=== PATIENT | male | born 1945 | race Caucasian/White ===

== ENCOUNTER 2024-06-25 17:33 | Inpatient (IN) | payer OTHER, SELFPAY ==
[2024-06-21] VITALS (7 sets, daily range): BP systolic 104–159; BP diastolic 55–88; BMI 32.3
[2024-06-21 17:01] LABS: Urine Albumin Negative (Neg - Trace); Urine Bilirubin Negative (Negative); Urine Character Clear (Clear); Urine Color Yellow; Urine Glucose Negative (Negative); Urine Ketone 1+ (Negative); Urine Leukocyte Trace (Negative); Urine Nitrite Negative (Negative); Urine Occult Blood Negative (Negative); Urine Urobilinogen Negative (Neg - 1+)
[2024-06-21 17:04] LABS: % Basophils 0.5 % (0-2); % Immature Granulocytes 0.2 % (0-0.5); % Monocytes 10.1 % (1.7-9.3); % Neutrophils 69.2 % (42.2-75.2); Absolute Eosinophils 0.1 10^3/uL (0-0.7); Absolute Monocytes 0.6 10^3/uL (0.1-0.6); Absolute Neutrophils 3.9 10^3/uL (1.4-6.5); Hematocrit 41.5 % (39.0-52.0); Hemoglobin 13.8 g/dL (13.0-18.0); Mean Corp Hgb Conc. 33.3 g/dL (33.0-37.0); Mean Corpuscular Hgb 30.4 pg (27.0-31.0); Mean Corpuscular Volume 91.4 fL (80.0-94.0); Mean Platelet Volume 9.5 fL (7.4-10.4); Nucleated Red Blood Cells % 0 % (-); Platelet Count 188 10^3/uL (130-400); Red Blood Cell Count 4.54 10^6/uL (4.70-6.10); Red Cell Dist. Width 14.7 % (11.5-14.5); White Blood Cell Count 5.6 10^3/uL (4.8-10.8)
[2024-06-21 17:12] LABS: Urine Mucus Few; Urine Squamous Cell 0-2 /LPF (Few)
[2024-06-21 17:13] LABS: Urine Bacteria Few (Negative); Urine Red Blood Cell 0-2 /HPF (0-2); Urine White Cell 0-2 /HPF (0-5)
[2024-06-21 17:15] LABS: ALT (SGPT) < 10 U/L (0-50); AST (SGOT) 43 U/L (17-59); Alkaline Phosphatase 70 U/L (38-126); Blood Urea Nitrogen 26 mg/dl (9-20); Calcium 9.5 mg/dl (8.4-10.2); Carbon Dioxide 27 mmol/L (22-30); Chloride 108 mmol/L (98-107); Estimated Creatinine Clearance 61 ml/min; Glucose 116 mg/dl (70-99); Potassium 4.8 mmol/L (3.5-5.1); Sodium 143 mmol/L (135-145); Total Bilirubin 0.7 mg/dl (0.2-1.3); Total Protein 6.9 g/dl (6.3-8.2); eGFR > 60.00
--- NOTE | 2024-06-21 19:03 | ED.GENMED ---
History of Present Illness
General
Chief Complaint: Change in Mental Status
Source: patient
Exam Limitations: none
Time Seen by Provider: 06/21/24 17:57
Nursing documentation reviewed up to this point in time: agreed with
History of Present Illness
History of Present Illness:
Patient with history of dementia and CVA, presents [facility] from [facility] secondary to increased confusion, more than usual, per nursing staff at [facility]. Upon arrival, patient is alert and awake but confused. Patient offers no additional
information. Patient denies any pain when questioned.
Past History
Past History
ED Past Medical History: Arrthythmia (Atrial fibrillation), CVA, GERD, HTN, NIDDM (Diet-controlled), Psychiatric (Anxiety depression), Other (Parkinson dementia) and Other (Parkinson's disease, dementia, ambulatory dysfunction, degenerative joint
disease, cervical stenosis)
ED Past Surgical History: Cardiac (Pacemaker) and Other (hernia repair)
Social History
Tobacco: Non-smoker
Alcohol: None
Drug: None
Personal:
Living: assisted living ([facility])
Employment: Retired
Family History
Family History: Other (Reviewed and Noncontributory)
Review of Systems
Review of Systems
Allergies reviewed?: Yes
Unable to obtain full review of systems at this time due to: dementia
All Other Systems: Not applicable
Phy Exam
Physical Exam
Physical Exam:
Physical Exam
General: no apparent distress, not acutely ill. afebrile
Head: nc/at. eomi
Neck: supple. no meningeal signs.
Heart: s1/s2 regular rate and rhythm, no murmur. equal radial pulses.
Lungs: no acute respiratory distress. diminished breath sounds bilaterally
Abdomen: normal bowel sounds. not tender.
Neuro: alert and oriented x1. no focal neurological deficits
Skin: no rash
Psychiatric: well kept. interactive and cooperative, but confused
Extremities: LE nonpitting edema.
Course
Orders/Labs/Results
Orders:
Orders
06/21/24 Breakfast
Regular
At Your Request: Limited Participation
06/21/24 16:47
Complete Blood Count/With Diff Urgent
Comprehensive Metabolic Panel Urgent
Urinalysis Reflex To Culture Urgent
Date Specimen was Collected: 06/21/24
Time Specimen was Collected: 16:46
Urine Microscopic Reflex Cult Urgent
Urine Culture Urgent
YAS Source: U
Specimen Description:
Date Specimen was Collected: 06/21/24
Time Specimen was Collected: 16:46
Comment: ADD ON
06/21/24 18:05
Add On - Microbiology Urgent
Tests Added?: urine culture
06/21/24 18:30
CT Abd/pel Without Iv Or Oral Urgent
Comment:
Reason For Exam: left flank pain
CR Chest - 2 Views Urgent
Comment:
Reason For Exam: cough
06/21/24 19:16
COVID-19 Antigen Urgent
Source: Nasal Swab
06/21/24 22:00
0.9% Sodium Chloride 500 ml [Nss] 500 ml IV 100 mls/hr
06/21/24 22:[address] [CT Head W/o Iv Contrast] Urgent
Comment:
Reason For Exam: change in mental status
06/21/24 22:11
Admit/Transfer Patient As Directed
Co-Sign Provider:
Level of Care: Observation services
Assign to:: Medical/Surgical
Physician / Group: Lam[facility]
Diagnosis: Change in Mental Status
PRN Pain Medication Management As Directed
May give lesser potent ordered pain med per pt: Yes
preference::
Protocol:: Medication orders for pain may be administered in a
manner that supports deferring to patient preference
when the pt is:
- Requesting an ordered lesser potent pain medication.
Least to most potent pain medications are defined
as: acetaminophen < NSAID < tramadol < opioids
(morphine, oxycodone, hydromorphone).
- Requesting a lesser dose of the same medication IF
ORDERED.
- Requesting a less intrusive route of administration
if both routes are prescribed by the provider (PO <
IV).
06/21/24 22:15
Code Status As Directed
Resuscitation Status: Full Code
06/21/24 22:56
Acetaminophen [Tylenol] 650 mg PO Q4HPRN PRN
06/21/24 22:56
Vascular Surgery Consult Routine
Consulting Provider: Mary Jo Perez
Was physician already notified: Yes
Activity As Directed
Activity Level: Out of Bed-Early Mobility
Bladder Scan As Directed
Follow Bladder Retention/Intermittent Cath Algorithm?: Yes
PRN if no void in __ hours: 6
Frequency: Per Retention Algorithm
If Bladder Scan Result >: 400
then:: Straight cath
I&O [Intake/ Output] As Directed
Frequency: q12h
Straight Cath As Directed
Frequency: Per Retention Algorithm
Additional Instructions: straight cath as needed per acute urinary retention algorithm for 24 hrs
Additional Instructions: for bladder scan greater than 400 mL
Vital Signs As Directed
Frequency: Per unit guidelines
Ot Eval And Treat Routine
Pt Eval And Treat Routine
Activity Level: Out of Bed-Early Mobility
06/22/24 06:44
Basic Metabolic Panel IN AM
Complete Blood Count/No Diff IN AM
Prothrombin Time IN AM
RPR [Syphilis/T. pallidum Ab Reflex] IN AM
TSH Reflex To Free T4 IN AM
Vitamin B12 IN AM
06/22/24 08:00
Carbidopa/Levodopa [Sinemet 25-100] 1 tablet PO TID@0800,1400,1800
Clonazepam [Klonopin] 0.5 mg PO TID@0800,1400,1800
Cyanocobalamin [Vitamin B-12] 1,000 mcg PO DAILY
Pantoprazole [Protonix] 20 mg PO DAILY
Polyethylene Glycol Powder [Miralax] 17 grams PO DAILY
Rotigotine [Neupro] 4 mg TRANSDERM DAILY
epxulmonf-sryxfidh-ycdtucwkik 1 tablet PO 5/D
06/22/24 18:00
Carvedilol [Coreg] 3.125 mg PO QPM
Citalopram [Celexa] 20 mg PO QPM
Donepezil HCl [Aricept] 10 mg PO QPM
Sennosides [Senokot] 8.6 mg PO QPM
Solifenacin Succinate [Vesicare] 5 mg PO QPM
06/22/24 20:00
Warfarin [Coumadin] 5 mg PO SuTuThSa@1999
06/22/24 22:00
Melatonin 9 mg PO HS
06/23/24 06:00
Prothrombin Time IN AM
06/23/24 20:00
Warfarin [Coumadin] 4 mg PO MoWeFr@1999
06/24/24 06:00
Prothrombin Time IN AM
06/25/24 06:00
Prothrombin Time IN AM
06/26/24 06:00
Prothrombin Time IN AM
Abnormal Lab Results
06/21/24
16:47
RBC 4.54 L 10^6/uL
(4.70-6.10)
RDW 14.7 H %
(11.5-14.5)
Absolute Lymphs (auto) 1.0 L 10^3/uL
(1.2-3.4)
Lymphocytes % 18.0 L %
(20.5-51.1)
Monocytes % 10.1 H %
(1.7-9.3)
Chloride 108 H mmol/L
(98-107)
BUN 26 H mg/dl
(9-20)
Glucose 116 H mg/dl
(70-99)
Urine Ketones 1+ A
(Negative)
Leukocyte Esterase Rfl Trace A
(Negative)
Urine Bacteria (Reflex) Few A
(Negative)
06/21/24 16:47
06/21/24 16:47
Vital Signs
Initial and Last Documented VS:
Initial Vital Signs
Temp Pulse Resp BP Pulse Ox
98.1 F 85 21 118/69 91
06/21/24 16:41 06/21/24 16:41 06/21/24 16:41 06/21/24 16:41 06/21/24 16:41
Last Documented Vital Signs
Temp Pulse Resp BP Pulse Ox
98.2 F 61 18 145/91 95
06/22/24 00:15 06/22/24 06:24 06/22/24 06:24 06/22/24 06:24 06/22/24 06:24
MDM/Problems Addressed
MDM/Problems Addressed:
Patient remains alert, awake, but pleasantly confused. Otherwise, patient is afebrile, helically stable, without any acute distress. Patient presenting symptoms likely secondary to mild dehydration, without any evidence of focal infection.
However, CT abdomen pelvis performed due to mild tenderness on exam, which reveals abdominal aortic aneurysm measuring 6.2 cm.
Discussed with patient's son, who is power of assistant county attorney. Patient is full code and does not have any history of AAA. As such, patient will be admitted for further events or treatment, including IV fluid administration along with vascular
consultation as inpatient.
*Critical Care Note
Total Time (30-74mins, 75-104mins- exclusive of procedures): Not Applicable
ED Attending Note
-
Portions of this chart may have been created with voice recognition software.� Occasional wrong word or��sound alike� substitutions may have occurred due to the inherent limitations of voice recognition software.
Discharge Plan
Departure
Patient Disposition: Admit
Date of Disposition: 06/21/24
Time of Disposition: 21:19
Admit to: Med/Surg
Presentation/result/management discussed w/ accepting MD/DO: Hospitalist
Discharge Problem:
Altered mental status
Interventions
Interventions:
*Risk Screen - Suicide Last Done: 06/21/24 16:44
*General Assessment Last Done: 06/21/24 16:44
*Neglect/Abuse Screening Last Done: 06/21/24 16:44
ED- Fall Risk Assessment Last Done: 06/22/24 00:38
*ED COVID-19 Vaccine History Last Done: 06/21/24 16:44
ED- Pulmonary Assessment Last Done: 06/22/24 00:38
ED- Neurological Assessment Last Done: 06/22/24 00:38
ED- Cardiac Assessment Last Done: 06/21/24 16:45
ED Swallowing Screen Last Done: 06/22/24 01:15
[2024-06-21 19:31] LABS: COVID-19 Antigen Negative (Negative)
[2024-06-21] MEDS: NSS 500 IV (21:27)
--- NOTE | 2024-06-21 21:47 | W.PN.UPDATE ---
Update Note
Progress Note Update
Patient seen in conjunction with [facility] ADMINISTRATOR. I agree with the findings on history and physical. I concur with the assessment and plan unless stated otherwise.
Briefly, this is a 78-year-old male with past medical history of Parkinson disease, atrial fibrillation on anticoagulation, diabetes, hypertension, who presents to the emergency department with worsening confusion and weakness fatigue from home. He
has dementia for which he is on medications. Patient lives at [facility] and says has been living there for 10 years. He has no focal neurological deficits or complaints. Denies dysuria, incontinence hematuria. Denies cough, wheezing or SOB.
Denies headache, nausea, vomiting. Denies fevers or chills. Denies any recent falls. Patient does not initiate conversation no able to provide details on his medical condition. Clearly has worsening dementia possibly due to parkinson and he was
recently started on Namenda on 05/31. Otherwise no medicationchanges. He is anticoagulated appropriately
In the ED he was afebrile, blood pressure was stable at 118/75 with a pulse of 70 and respiratory rate of 12. Chest x-ray was clear. He had a CT of the abdomen pelvis which showed an incidental finding of an increase in his infrarenal AAA to 6.2
from 3.6 approximately 7 years ago. Chemistries showed normal-appearing creatinine and electrolytes. LFTs were normal. CBC was unremarkable. UA was clear. COVID-19 was negative.
A&P
AMS - subacute, no focal neurological defitics, no signs of acute infection.
- admit to med/surg
- hold namenda
- check ct head tsh, b12, rpr
- orthostatic vital signs
- patient should have outpatient neurology follow up
AAA- Known AAA, previously 3.6 in 2017. Now 6.2
- meets threshold for tx, Vascular consultation. D/w POA by ED
DM II
- diet controlled
AFIB
- continue warfarin, check inr
- carvedilol
HTN
- continue carvedilol
DVT PPX - on coumadin
Code status - Full
--- NOTE | 2024-06-21 22:11 | HPS.HSE ---
Family Physician
-
Family Physician: Prashanth Rodríguez
Chief Complaint
-
Confusion
History of Present Illness
Patient is a 78 y/o male past medical history of a-fib on Coumadin, Parkinson's disease, dementia, anxiety/depression who presents with confusion. Review of records indicate patient was noted by staff at the nursing facility to be more confused
than his baseline. Upon my evaluation he has no complaints. He is oriented to person, place and time; but is unable to tell me why he was sent to the hospital this evening.
Medical History
Past Medical History
Past Medical History: Reports Other
Additional Past Medical History:
Paroxysmal Atrial Fibrillation
Essential Hypertension
Hyperlipidemia
Parkinson's Disease
Dementia, likely secondary to Parkinson's Disease
Anxiety/Depression
GERD
Chronic Constipation
Past Surgical History: Reports Other
Additional Past Surgical History:
Permanent Pacemenaker
Hernia Repair
TURP
Social History
Tobacco: Non-smoker
Alcohol: None
Living: Other ([facility])
Family History
Family History: Not pertinent
Allergies / Home Medications
Allergies reflects when Allergies were last updated in [employer].
Home Medications with original date entered in [employer]
Allergy/Medication List:
Allergies
Allergy/AdvReac Type Severity Reaction Status Date / Time
oxycodone HCl [From Percocet] Allergy vomitting Verified 06/06/23 01:18
Home Medications
citalopram 20 mg tablet 20 mg PO QPM 07/02/14
cyanocobalamin (vitamin B-12) 500 mcg tablet (Vitamin B-12) 1,000 mcg PO DAILY 07/02/14
acetaminophen 325 mg tablet 650 mg PO BIDPRN PRN mild pain ##0 10/16/16
carbidopa 37.5 mg-levodopa 150 mg-entacapone 200 mg tablet 1 tab PO 5/D ##0 02/24/17
carvedilol 3.125 mg tablet 3.125 mg PO QPM 10/16/16
clonazepam 0.5 mg tablet 0.5 mg PO TID@0800,1400,1800 ##0 10/16/16
pantoprazole 20 mg tablet,delayed release 20 mg PO DAILY ##0 10/16/16
polyethylene glycol 3350 17 gram oral powder packet 17 g PO DAILY constipation 10/16/16
rotigotine 6 mg/24 hour transdermal 24 hour patch (Neupro) 6 mg transdermal DAILY ##0 10/16/16
sennosides 8.6 mg tablet (senna) 8.6 mg PO QPM ##0 10/16/16
solifenacin 5 mg tablet 5 mg PO QPM 10/16/16
warfarin 5 mg tablet (Jantoven) 5 mg PO .4X WEEKLY@199910/16/16
atorvastatin 10 mg tablet (Lipitor) 10 mg PO QPM 10/29/19
melatonin 3 mg capsule 9 mg PO HS 10/29/19
bisacodyl 10 mg rectal suppository (Dulcolax (bisacodyl)) 10 mg UT DAILYPRN PRN constipation 06/06/23
carbidopa 25 mg-levodopa 100 mg tablet (Sinemet) 1 tab PO TID@0800,1400,1800 06/06/23
donepezil 10 mg tablet (Aricept) 10 mg PO QPM 06/06/23
acetaminophen 325 mg tablet 650 mg PO BID 06/21/24
cranberry 500 mg capsule 500 mg PO DAILY 06/21/24
dextran 70-hypromellose 0.1 %-0.3 % eye drops (Artificial Tears (dextran 70-hypromellose)) 1 drp BOTH EYES BID 06/21/24
memantine 10 mg tablet 10 mg PO BID 06/21/24
therapeutic multivitamin 1 tab PO DAILY 06/21/24
warfarin 4 mg tablet 4 mg PO .3X WEEKLY@199906/21/24
Review of Systems
-
Unable to obtain full review of systems at this time due to: Dementia
Physical Exam
Vital Signs
Vital Signs
Temp Pulse Resp BP Pulse Ox
98.1 F 60 15 154/82 96
06/21/24 16:41 06/21/24 22:00 06/21/24 22:00 06/21/24 22:00 06/21/24 21:45
Physical Exam
General: Comfortable and Conversant (Slow to answer questions)
HEENT: Anicteric and Moist mucous membranes
Respiratory: Clear and Non Labored Respirations
Cardiac: S1/S2 and Regular Rhythm
GI: Soft and Non Tender
Rectal: Deferred by Provider
Genito-urinary: Clear Urine
Musculoskeletal: No Clubbing, No Cyanosis and No Edema
Skin: Warm and Dry
Neuro: Awake, Alert, Oriented (Patient correctly states he is at [facility], that it is May 2024, and correctly named the current president. He states Election Day is next week and gave listed the presidential candidates) and
Nonfocal/grossly intact
Psych: Calm and Other (Affect is very flat)
Laboratory Results
-
06/21/24 16:47
06/21/24 16:47
Laboratory Results
Total Bilirubin 0.7 mg/dl (0.2-1.3) 06/21/24 16:47
AST 43 U/L (17-59) 06/21/24 16:47
ALT < 10 U/L (0-50) 06/21/24 16:47
Alkaline Phosphatase 70 U/L (38-126) 06/21/24 16:47
Data Reviewed
-
CT Scan: Report Reviewed by me
Lab Data: Labs Reviewed by me
Impression/Plan
-
Change in Mental Status, unknown baseline
-Check Head CT
-Check TSH
-Review of records suggest Namenda was started recently on May 31 - Will hold Namenda as possible cause
Infrarenal Abdominal Aortic Aneurysm
-Size has increased to 6.2cm from 3.6cm in 2014
-Consult Vascular Surgery
Paroxysmal Atrial Fibrillation
-Continue Coumadin - Check INR
-Continue Coreg for rate control
Essential Hypertension
-Continue Coreg
Hyperlipidemia
-Continue Lipitor
Parkinson's Disease
-Continue carbidopa-levodopa, entacapone and rotigotine
Dementia, likely secondary to Parkinson's Disease
-Continue Aricept
-Hold Namenda as above
Anxiety/Depression
-Continue citalopram and clonazepam
DVT proph: Coumadin
Code Status: Full Code
[2024-06-22 00:15] VITALS: BP 157/80
[2024-06-22 06:24] VITALS: BP 145/91
[2024-06-22 06:56] LABS: Hematocrit 40.6 % (39.0-52.0); Hemoglobin 13.6 g/dL (13.0-18.0); Mean Corp Hgb Conc. 33.5 g/dL (33.0-37.0); Mean Corpuscular Hgb 29.8 pg (27.0-31.0); Mean Platelet Volume 9.4 fL (7.4-10.4); Platelet Count 176 10^3/uL (130-400); Red Blood Cell Count 4.56 10^6/uL (4.70-6.10); Red Cell Dist. Width 14.9 % (11.5-14.5); White Blood Cell Count 4.3 10^3/uL (4.8-10.8)
[2024-06-22 07:05] LABS: INR 1.45; PT 17.8 Sec (11.4-14.6)
[2024-06-22 07:25] LABS: Blood Urea Nitrogen 20 mg/dl (9-20); Calcium 9.1 mg/dl (8.4-10.2); Carbon Dioxide 28 mmol/L (22-30); Chloride 108 mmol/L (98-107); Estimated Creatinine Clearance 81 ml/min; Glucose 90 mg/dl (70-99); Potassium 4.2 mmol/L (3.5-5.1); Sodium 143 mmol/L (135-145); eGFR > 60.00
--- NOTE | 2024-06-22 07:48 | W.PN.HOSP.TC ---
Today's Communication/Plan
-
Hold Namenda
Continue Coumadin and monitor INR
PT/OT
Assessment / Plan
Assessment / Plan
Impression: 78-year-old male with past medical history of Parkinson disease, atrial fibrillation on anticoagulation, diabetes, hypertension, who presents to the emergency department with worsening confusion and weakness fatigue from home. He has
dementia for which he is on medications. Patient lives at [facility] and says has been living there for 10 years. He has no focal neurological deficits or complaints. Denies dysuria, incontinence hematuria. Denies cough, wheezing or SOB.
Denies headache, nausea, vomiting. Denies fevers or chills. Denies any recent falls. Patient does not initiate conversation no able to provide details on his medical condition. Clearly has worsening dementia possibly due to parkinson and he was
recently started on Namenda on 05/31. Otherwise no medicationchanges. He is anticoagulated appropriately
Assessment/plan:
#AMS
-Baseline unclear, CT head with no acute abnormalities, CXR unremarkable, no FND, no signs of acute infection.
-Hold Namenda.
-B12, TSH unremarkable.
-RPR pending
-PT/OT
#Infrarenal AAA
-Previous size 3.6 cm in 2013, currently 6.2 cm.
-Contact POA for GOC unsuccessful, will retry.
-Consider vascular surgery consult.
#Type 2 diabetes mellitus
-Diet controlled
#Paroxysmal A-fib
-On warfarin, INR not therapeutic.
-Continue carvedilol for rate control.
-Monitor INR.
#Essential hypertension
-Continue carvedilol.
#Hyperlipidemia
-Continue atorvastatin.
#Parkinson disease with dementia
-Continue carbidopa-levodopa, entacapone and rotigotine
-Continue donepezil.
-Hold Namenda.
#Anxiety/Depression
-Continue citalopram and clonazepam
DVT PPx: Coumadin
CODE STATUS: Full code
Anticipated Discharge: 24 - 48 hours
Subjective/Interval History
-
Date of Service: June 22, 2024
Patient was seen and examined in the room eating breakfast. Patient not responding to questions, unclear what his baseline is.
Objective Data
-
Labs:
Laboratory Results
06/22/24
06:44
WBC 4.3 L
Hgb 13.6
Hct 40.6
Plt Count 176
PT 17.8 H
INR 1.45
Sodium 143
Potassium 4.2
Chloride 108 H
Carbon Dioxide 28
BUN 20
Creatinine 0.9
Glucose 90
Calcium 9.1
Vital Signs:
Vital Signs
Temp Pulse Resp BP Pulse Ox
98.2 F 61 18 145/91 95
06/22/24 00:15 06/22/24 06:24 06/22/24 06:24 06/22/24 06:24 06/22/24 06:24
Review of Systems
-
Unable to obtain full review of systems at this time due to: Dementia and Patient Non-verbal
Physical Exam
-
General: No Apparent Distress and Comfortable
Respiratory: Clear to Auscultation; Negative Rales or Crackles
Cardiac: Regular Rhythm and S1/S2
GI: Soft, Nontender and Distended
Skin: Warm
Neuro: Awake and Alert
Psych: Calm
Data Reviewed
-
Diagnostic Radiology: Image personally visualized and interpreted, Report Reviewed by me and Discussed with Physician
CT Scan: Image personally visualized and interpreted, Report Reviewed by me and Discussed with Physician
Labs: Labs Reviewed by me and Discussed with Physician
Old Records: Reviewed
[2024-06-22 07:56] LABS: TSH Reflex To Free T4 1.65 uIU/ml (0.47-4.68)
[2024-06-22 08:15] LABS: Vitamin B12 923 pg/ml (239-931)
[2024-06-22] MEDS: VITAMIN B-12 1000 MCG PO (08:19)
[2024-06-22] MEDS: NEUPRO 4 MG TRANSDERM (08:19)
[2024-06-22] MEDS: NEUPRO 2 MG TRANSDERM (08:19)
[2024-06-22] MEDS: MIRALAX 17 GRAMS PO (08:19)
[2024-06-22] MEDS: SINEMET 25-100 1 TABLET PO ×3 (08:20→18:28)
[2024-06-22] MEDS: PROTONIX 20 MG PO (08:20)
[2024-06-22] MEDS: KLONOPIN 0.5 MG PO (08:20)
[2024-06-22 09:33] VITALS: BP 143/91
--- NOTE | 2024-06-22 12:32 | W.PN.UPDATE ---
Addendum entered and electronically signed by Otto Valenzuela MD 06/22/24 13:52:
I did speak extensively with patient's son Parveen over the phone. Discussed extensively abdominal aortic aneurysms, natural history, rupture risks, indications for repair. Discussed specifics of his father's aneurysm. Discussed symptomatic
versus asymptomatic aneurysms. Discussed modalities of repair. Discussed recoveries and risks associated with both modalities. Discussed based on his anatomy he be a candidate for endovascular pair. Discussed rupture risk if no intervention is
undertaken. They will consider all know what they decide. They will call me in the office tomorrow.
Original Note:
Update Note
Progress Note Update
Seen and examined with DONA Calero. Full consultation to follow. Briefly he is a 78-year-old male with history of Parkinson's disease, dementia. Presented with increased confusion/mental status changes. Underwent CT scan of the abdomen.
Demonstrated incidental finding of abdominal aortic aneurysm. 6.2 cm infrarenal abdominal aortic aneurysm. Only prior scan we have in our system was from 2013 that demonstrated 3.5 cm measurement in that vicinity. 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 He points more to the left side.
On exam/he is awake. In no acute distress. Breathing is unlabored. Abdomen is soft, nondistended, mildly tender diffusely but mainly on the left side of the abdomen. When I palpate to deep palpation directly overlying the aorta it does not
really elicit any increased tenderness or discomfort. Lower extremity with 2+ femoral and popliteal pulses. Feet are both warm and pink. No rubor, no ulcerations.
Plan/I reviewed his CT scan. He does have an infrarenal 6.2 cm (AP dimension, approximately 5.4 cm transverse) abdominal aortic aneurysm. I tried calling his POA his son Parveen. Went to voicemail. I called secondary contact who is Jevon
Elisa. I spoke to him at length. Discussed the findings. Discussed general information regarding abdominal aortic aneurysms, discussed indications for repair. Discussed rupture risk, based on size of his aneurysm quoted him about a 10 %/year
risk of rupture with attendant mortality of upwards of 80 to 90%. Discussed generally recommendations for repair based on the size for rupture prevention. I discussed that if no other abdominal pain source is found (Mr. Pérez notes that patient
has recurrent UTIs as well), that could consider treatment of the aneurysm more expeditiously as it could indicate symptomatic aneurysm though he is not tender as much on exam directly overlying the aneurysm. Alternatively could perform elective
aneurysm repair. Mr. Pérez notes that he will speak to the patient's son. I will call them back in a little bit to see where they stand on the aorta.
--- NOTE | 2024-06-22 13:31 | CON.VAS ---
Consultation
Consultation Request
Performing Provider: Nicolas
Reason for Consultation: AAA
Medical History
-
Chief Complaint: Confusion
History of Present Illness:
78-year-old male with history of Parkinson's disease, dementia. Presented with increased confusion/mental status changes. Underwent CT scan of the abdomen. Demonstrated incidental finding of abdominal aortic aneurysm. 6.2 cm infrarenal abdominal
aortic aneurysm. Only prior scan we have in our system was from 2013 that demonstrated 3.5 cm measurement in that vicinity. 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 He points more to the left
side.
On exam/he is awake. In no acute distress. Breathing is unlabored. Abdomen is soft, nondistended, mildly tender diffusely but mainly on the left side of the abdomen. When I palpate to deep palpation directly overlying the aorta it does not
really elicit any increased tenderness or discomfort. Lower extremity with 2+ femoral and popliteal pulses. Feet are both warm and pink. No rubor, no ulcerations.
Past Medical History
Past Medical History: Other (A-fib, hypertension, hyperlipidemia, Parkinson disease, dementia, anxiety/depression, GERD, chronic constipation, AAA)
Past Surgical History: Other (Pacemaker, hernia repair, TURP)
Social History
Tobacco: Non-Smoker
Alcohol: None
Living: [facility]
Family History
Family History: Reviewed & Not Pertinent
Allergies / Home Medications
Allergy/AdvReac Type Severity Reaction Status Date / Time
oxycodone HCl [From Percocet] Allergy vomitting Verified 06/06/23 01:18
�Medication �Instructions �Recorded �Confirmed �Type
citalopram 20 mg tablet 20 mg PO QPM 07/02/14 06/21/24 History
cyanocobalamin (vitamin B-12) 500 1,000 mcg PO DAILY 07/02/14 06/21/24 History
mcg tablet (Vitamin B-12)
acetaminophen 325 mg tablet 650 mg PO BIDPRN PRN mild pain ##0 10/16/16 06/21/24 History
carbidopa 37.5 mg-levodopa 150 1 tab PO 5/D ##0 10/16/16 06/21/24 History
mg-entacapone 200 mg tablet
carvedilol 3.125 mg tablet 3.125 mg PO QPM 10/16/16 06/21/24 History
clonazepam 0.5 mg tablet 0.5 mg PO TID@0800,1400,1800 ##0 10/16/16 06/21/24 History
pantoprazole 20 mg tablet,delayed 20 mg PO DAILY ##0 10/16/16 06/21/24 History
release
polyethylene glycol 3350 17 gram 17 g PO DAILY constipation 10/16/16 06/21/24 History
oral powder packet
rotigotine 6 mg/24 hour 6 mg transdermal DAILY ##0 10/16/16 06/21/24 History
transdermal 24 hour patch (Neupro)
sennosides 8.6 mg tablet (senna) 8.6 mg PO QPM ##0 10/16/16 06/21/24 History
solifenacin 5 mg tablet 5 mg PO QPM 10/16/16 06/21/24 History
warfarin 5 mg tablet (Jantoven) 5 mg PO .4X WEEKLY@199910/16/16 06/21/24 History
atorvastatin 10 mg tablet (Lipitor) 10 mg PO QPM 10/29/19 06/21/24 History
melatonin 3 mg capsule 9 mg PO HS 10/29/19 06/21/24 History
bisacodyl 10 mg rectal suppository 10 mg SD DAILYPRN PRN constipation 06/06/23 06/21/24 History
(Dulcolax (bisacodyl))
carbidopa 25 mg-levodopa 100 mg 1 tab PO TID@0800,1400,1800 06/06/23 06/21/24 History
tablet (Sinemet)
donepezil 10 mg tablet (Aricept) 10 mg PO QPM 06/06/23 06/21/24 History
acetaminophen 325 mg tablet 650 mg PO BID 06/21/24 06/21/24 History
cranberry 500 mg capsule 500 mg PO DAILY 06/21/24 06/21/24 History
dextran 70-hypromellose 0.1 %-0.3 1 drp BOTH EYES BID 06/21/24 06/21/24 History
% eye drops (Artificial Tears
(dextran 70-hypromellose))
memantine 10 mg tablet 10 mg PO BID 06/21/24 06/21/24 History
therapeutic multivitamin 1 tab PO DAILY 06/21/24 06/21/24 History
warfarin 4 mg tablet 4 mg PO .3X WEEKLY@199906/21/24 06/21/24 History
Review of Systems
-
History Source: Patient
All other systems: Negative unless noted
Constitutional: Reports No Symptoms
EENT: Reports No Symptoms
Respiratory: Reports No Symptoms
Cardiac: Reports No Symptoms
Vascular: Denies Leg Pain / Claudication
Abdomen/GI: Reports Abdominal Pain
Physical Exam
Vital Signs
Temp Pulse Resp BP Pulse Ox
98.2 F 61 18 145/91 95
06/22/24 00:15 06/22/24 06:24 06/22/24 06:24 06/22/24 06:24 06/22/24 06:24
Lab Results
06/22/24 06:44
06/22/24 06:44
Physical Exam
General: No Apparent Distress
HEENT: Normocephalic and Atraumatic
Respiratory: Non Labored Respirations
Cardiac: Negative JVD
GI: Soft, Non Distended and Other (Abdomen is soft, nondistended, mildly tender diffusely but mainly on the left side of the abdomen. When I palpate to deep palpation directly overlying the aorta it does not really elicit any increased tenderness
or discomfort)
Musculoskeletal: No Clubbing and No Cyanosis
Skin: Warm
Neuro: Awake and Alert
Psych: Calm
Pulses: Bilateral Femoral: +2 and Bilateral Popliteal: +2
Assessment / Plan
-
Plan/I reviewed his CT scan. He does have an infrarenal 6.2 cm (AP dimension, approximately 5.4 cm transverse) abdominal aortic aneurysm. I tried calling his POA his son Parveen. Went to voicemail. I called secondary contact who is Jevon "Chanel"Elisa. I spoke to him at length. Discussed the findings. Discussed general information regarding abdominal aortic aneurysms, discussed indications for repair. Discussed rupture risk, based on size of his aneurysm quoted him about a 10 %/year
risk of rupture with attendant mortality of upwards of 80 to 90%. Discussed generally recommendations for repair based on the size for rupture prevention. I discussed that if no other abdominal pain source is found (Mr. Pérez notes that patient
has recurrent UTIs as well), that could consider treatment of the aneurysm more expeditiously as it could indicate symptomatic aneurysm though he is not tender as much on exam directly overlying the aneurysm. Alternatively could perform elective
aneurysm repair. Mr. Pérez notes that he will speak to the patient's son. I will call them back in a little bit to see where they stand on the aorta.
Data Reviewed
-
CT Scan: Discussed with Patient
[2024-06-22 16:03] VITALS: BP 159/60
--- NOTE | 2024-06-22 16:25 | PTCARENOTE ---
Pt received from ED. VSS. AAOx3 but forgetful. Bed alarm placed. Call carrillo within reach. Pt states no needs at this time.
[2024-06-22] MEDS: COREG 3.125 MG PO (18:27)
[2024-06-22] MEDS: SENOKOT 8.6 MG PO (18:27)
[2024-06-22] MEDS: ARICEPT 10 MG PO (18:27)
[2024-06-22] MEDS: CELEXA 20 MG PO (18:27)
[2024-06-22] MEDS: VESICARE 5 MG PO (18:29)
[2024-06-22] MEDS: MELATONIN 9 MG PO (21:42)
[2024-06-22] MEDS: COUMADIN 5 MG PO (21:42)
[2024-06-22 23:08] VITALS: BP 118/65
[2024-06-23 06:00] VITALS: BMI 31.6
--- NOTE | 2024-06-23 06:14 | W.PN.HOSP.TC ---
Today's Communication/Plan
-
GOC discussion per vascular
Monitor hemodynamics closely
Assessment / Plan
Assessment / Plan
Impression: 78-year-old male with past medical history of Parkinson disease, atrial fibrillation on anticoagulation, diabetes, hypertension, who presents to the emergency department with worsening confusion and weakness fatigue from home. He has
dementia for which he is on medications. Patient lives at [facility] and says has been living there for 10 years. He has no focal neurological deficits or complaints. Denies dysuria, incontinence hematuria. Denies cough, wheezing or SOB.
Denies headache, nausea, vomiting. Denies fevers or chills. Denies any recent falls. Patient does not initiate conversation no able to provide details on his medical condition. Clearly has worsening dementia possibly due to parkinson and he was
recently started on Namenda on 05/31. Otherwise no medicationchanges. He is anticoagulated appropriately
Assessment/plan:
# Presentation with AMS
-Improved today more, alert and oriented today.
-Suspected etiology include polypharmacy vs progressive dementia.
-Baseline unclear, CT head with no acute abnormalities, CXR unremarkable, no FND, no signs of acute infection.
-Hold rotigotine, Namenda.
-B12, TSH unremarkable.
-RPR pending
-PT/OT
#Lower abdominal discomfort
-Left> Right, with left-sided guarding on palpation.
-Reports related to his nightmares and improves with defecation.
-Most likely from his AAA.
-Assessment for EVAR ongoing.
#Infrarenal AAA
-Previous size 3.6 cm in 2013, currently 6.2 cm.
-GOC with son who is his POA ongoing per vascular.
-Vascular surgery is following.
#Type 2 diabetes mellitus
-Diet controlled
#Paroxysmal A-fib
-On warfarin, INR not therapeutic.
-Continue carvedilol for rate control.
-Monitor INR.
#Essential hypertension
-Continue carvedilol.
#Hyperlipidemia
-Continue atorvastatin.
#Parkinson disease with dementia
-Continue carbidopa-levodopa, entacapone and rotigotine
-Continue donepezil.
-Hold Namenda.
#Anxiety/Depression
-Continue citalopram and clonazepam
DVT PPx: Coumadin
CODE STATUS: Full code
Anticipated Discharge: > 48 hours
Subjective/Interval History
-
Date of Service: June 23, 2024
Patient was seen and examined by me today. He was lying comfortably in his bed in no obvious distress. He is more awake today and communicative telling the story about his nightmares and hallucinations. He reports lower abdominal discomfort that
improves with defecation. He does not have any chest pain today, shortness of breath fever or chills. He also denies palpitations, headaches.
Objective Data
-
Labs:
Laboratory Results
06/23/24
06:00
PT Pending
INR Pending
Vital Signs:
Vital Signs
Temp Pulse Resp BP Pulse Ox
97.9 F 61 16 118/65 95
06/22/24 23:08 06/22/24 23:08 06/22/24 23:08 06/22/24 23:08 06/22/24 23:08
Review of Systems
-
History Source: Patient
All other systems: Not reviewed unless documented
Respiratory: Reports No Symptoms; Denies Trouble Breathing
Cardiac: Reports No Symptoms; Denies Chest Pain
Abdomen/GI: Reports Other (Mild abdominal discomfort improved with defecation)
Physical Exam
-
General: No Apparent Distress and Comfortable
Respiratory: Clear to Auscultation; Negative Rales or Crackles
Cardiac: Regular Rhythm and S1/S2
GI: Soft, Nontender and Distended
Skin: Warm
Neuro: Awake and Alert
Psych: Calm
Data Reviewed
-
Diagnostic Radiology: Image personally visualized and interpreted, Report Reviewed by me and Discussed with Physician
CT Scan: Image personally visualized and interpreted, Report Reviewed by me and Discussed with Physician
Labs: Labs Reviewed by me and Discussed with Physician
Old Records: Reviewed
[2024-06-23 06:43] LABS: Hematocrit 39.3 % (39.0-52.0); Hemoglobin 13.1 g/dL (13.0-18.0); Mean Corp Hgb Conc. 33.3 g/dL (33.0-37.0); Mean Corpuscular Hgb 30.1 pg (27.0-31.0); Mean Corpuscular Volume 90.3 fL (80.0-94.0); Mean Platelet Volume 9.3 fL (7.4-10.4); Platelet Count 163 10^3/uL (130-400); Red Blood Cell Count 4.35 10^6/uL (4.70-6.10); Red Cell Dist. Width 14.6 % (11.5-14.5); White Blood Cell Count 5.1 10^3/uL (4.8-10.8)
[2024-06-23 06:57] LABS: Blood Urea Nitrogen 20 mg/dl (9-20); Calcium 9.4 mg/dl (8.4-10.2); Carbon Dioxide 26 mmol/L (22-30); Chloride 107 mmol/L (98-107); Estimated Creatinine Clearance 72 ml/min; Glucose 100 mg/dl (70-99); Potassium 3.9 mmol/L (3.5-5.1); Sodium 141 mmol/L (135-145); eGFR > 60.00
[2024-06-23 06:58] LABS: INR 1.33; PT 16.6 Sec (11.4-14.6)
[2024-06-23 07:47] VITALS: BP 138/84
[2024-06-23] MEDS: MIRALAX 17 GRAMS PO (08:33)
[2024-06-23] MEDS: SINEMET 25-100 1 TABLET PO (08:34)
[2024-06-23] MEDS: PROTONIX 20 MG PO (08:34)
[2024-06-23] MEDS: VITAMIN B-12 1000 MCG PO (08:34)
[2024-06-23] MEDS: NEUPRO 2 MG TRANSDERM (09:56)
[2024-06-23] MEDS: NEUPRO 4 MG TRANSDERM (09:56)
--- NOTE | 2024-06-23 10:17 | W.PN.UPDATE ---
Update Note
Progress Note Update
Patient seen at bedside this a.m., resting comfortably. Patient states he has slight abdominal discomfort to the left lower quadrant, mild tenderness with palpation. Patient states pain is more concerned with the nightmares he is currently having
about his marriage. He states that these nightmares are causing him a lot of stress. I will communicate this to the primary team. Dr. Valenzuela to follow-up with the patient's son via phone today.
[2024-06-23 11:53] LABS: Syphilis/T. pallidum Ab Reflex Negative (Negative)
[2024-06-23] MEDS: COMTAN 200 MG PO ×3 (14:56→20:57)
[2024-06-23] MEDS: SINEMET 25-100 2.5 TABLET PO ×2 (14:56→18:14)
[2024-06-23 15:42] VITALS: BP 165/89
--- NOTE | 2024-06-23 18:11 | W.PN.UPDATE ---
Documented by User: Wilber Longoria MD, Resident 06/23/24 18:38
Update Note
Progress Note Update
Spoke with patient's son Gilles on the phone ([phone]) as he wanted an update on his dad's progress. Discussed that his dad's encephalopathy seems to be improving with d/c benzos and holding rotigotine and Namenda. Pts family also requested neuro
consults which has been placed for further eval of his AMS.
He stated that he spoke with his dad and they both decided to go ahead with the 'stent option' (EVAR) vs 'full aneurysm excision' (OSR) and they would like the procedure done now while his dad is in the hospital vs electively outpatient. He stated
that he had called the office of the vascular surgeon but could not get through and he will try to call again on Wednesday.
D/w Dr. Valenzuela.

Documented by User: Bravo Mercado, DO 06/23/24 18:44
Update Note
Progress Note Update
Spoke with patient's son Gilles on the phone ([phone]) as he wanted an update on his dad's progress. Discussed that his dad's encephalopathy seems to be improving with d/c benzos and Namenda. Pts family also requested neuro consults which has
been placed for further eval of his AMS.
He stated that he spoke with his dad and they both decided to go ahead with the 'stent option' (EVAR) vs 'full aneurysm excision' (OSR) and they would like the procedure done now while his dad is in the hospital vs electively outpatient. He stated
that he had called the office of the vascular surgeon but could not get through and he will try to call again on Wednesday.
D/w Dr. Valenzuela.
[2024-06-23] MEDS: SENOKOT 8.6 MG PO (18:13)
[2024-06-23] MEDS: CELEXA 20 MG PO (18:13)
[2024-06-23] MEDS: VESICARE 5 MG PO (18:13)
[2024-06-23] MEDS: ARICEPT 10 MG PO (18:16)
[2024-06-23] MEDS: COREG 3.125 MG PO (18:17)
[2024-06-23] MEDS: COUMADIN 4 MG PO (20:57)
[2024-06-23] MEDS: MELATONIN 9 MG PO (20:57)
[2024-06-23] MEDS: SINEMET 25-100 1.5 TABLET PO (20:58)
[2024-06-23 23:00] VITALS: BP 141/81
[2024-06-24 07:00] VITALS: BP 142/89
[2024-06-24 07:17] LABS: INR 1.35; PT 16.5 Sec (11.4-14.6)
--- NOTE | 2024-06-24 07:51 | CON.NEURO ---
Consultation
Order
Date of Consultation: 06/24/24
Requesting Provider: Wilber Longoria MD
Reason for Consult: encephalopathy
CC: none
HPI: This is a 78-year-old man who presented to [facility] on June 21, 2024 with abdominal pain. Neurology consultation was requested for an evaluation and management of worsening of baseline encephalopathy. Mr. Lorenzo is
unable to provide the history. The patient was found to have 6.2 cm fusiform infrarenal AAA.
According to patient's son Mr. Lorenzo has had progressive cognitive symptoms and ambulatory dysfunction at least since 2009. He reportedly noted to have visual spatial disorientation (would get lost while driving to work). He has been residing in
assisted living since 2014 due to ambulatory dysfunction and was later transitioned to detention level of care. Patient has been incontinent and ambulating with a walker and wheelchair
ER VS: 118/69, 85, afebrile.
PDMP: Clonazepam 0.5 Mg 90 tabs filled in on 04/23/2024, 05/26/2024.
Labs: INR 1.45, gluc 116, vit b12 923, neg SARS-Cov-2, normal WBCs, creatinine, sodium, unremarkable UA, negative syphilis serology.
CT head-mild atrophy.
PMH: h/o BRAO, IPD(under care of Alexey Blanc MD), dementia, autonomic dysfunction, polyneuropathy, DILLON, MDD, PA A-fib, CAD, DLP, SSS, DLP, AAA
PSH PPM, TURP, CTS
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
FH: brother, mother-PD
All: Oxycodone
ROS: Positive for baseline encephalopathy, ambulatory dysfunction, urinary incontinence, abdominal dyscomfort
General: Well developed. In no acute distress. Masked facies
Cardio: irregular rate and rhythm. Extremities are without cyanosis or edema.
Neuro:
Mental Status: Alert, oriented to name, age, , '. Poor attention, significantly increased processing time. Expressive>receptive aphasia
Cranial Nerves: Pupils are equally round and reactive to light. EOMs full. Visual chavez full to confrontation. No ptosis. No nystagmus. V1-V3 intact to light touch and pinprick bilaterally, symmetric. Face symmetric. Normal hearing AU. The
palate elevated well. No dysarthria. Mild hypophonia
Motor: Increased motor tone in upper and lower extremities. Right FDI atrophy. Moves lower extremities within bed plane. Drifts upper extremity slowly to the bed symmetrically
Reflexes: Bilateral grasp
Sensory: Limited exam due to poor attention
Coordination: No tremors myoclonic movement
Gait: deferred
Assessment and Plan:
I. IPD
II. Encephalopathy, chronic
III. A-fib, subtherapeutic INR
-Fall and aspiration precautions
-Increase Sinemet 25/100 to 1.5 tab QID and continue Entacapone 200 mg 4 times a day, Nepro 4 mg patch QD and Clonazepam 0.5 mg QD
-Will review medical records from patient's
-Continue Aricept 10 mg QD
I personally reviewed all radiology and labs along with past medical records pertinent to current medical problems. Total time spent in patient care is 60 minutes.
Thank you for allowing us to participate in the care of this patient. We will continue to follow. Please do not hesitate to contact us with any questions or concerns.
Subjective/Objective
Subjective Data
Date of Service: June 24, 2024
Objective Data
Vital Signs
Temp Pulse Resp BP Pulse Ox
36.7 C 61 20 141/81 96
06/23/24 23:00 06/23/24 23:00 06/23/24 23:00 06/23/24 23:00 06/23/24 23:00
Lab Results
06/23/24 06:18
06/23/24 06:19
PT 16.5 Sec (11.4-14.6) H 06/24/24 06:49
INR 1.35 06/24/24 06:49
Sodium 141 mmol/L (135-145) 06/23/24 06:19
Potassium 3.9 mmol/L (3.5-5.1) 06/23/24 06:19
BUN 20 mg/dl (9-20) 06/23/24 06:19
Glucose 100 mg/dl (70-99) H 06/23/24 06:19
Calcium 9.4 mg/dl (8.4-10.2) 06/23/24 06:19
Vitamin B12 923 pg/ml (239-931) 06/22/24 06:44
Patient Allergies
oxycodone HCl [From Percocet] Allergy (Verified 06/06/23 01:18)
vomitting
Medications
-
Active Medications
Generic Name Dose Route Start Last Admin
Trade Name Freq PRN Reason Stop Dose Admin
Acetaminophen 650 mg 06/21/24 22:56
Acetaminophen 325 Mg Tablet PO 07/19/24 22:55
Q4HPRN PRN
mild pain/ fever>100.5F
Carbidopa/Levodopa 1.5 tablet 06/22/24 18:00 06/23/24 20:58
Carbidopa (25 Mg)/Levodopa (100 Mg) Regular Release Tablet PO 07/20/24 17:59 1.5 tablet
BID@1000,2100 MICHAEL Administration
Carbidopa/Levodopa 2.5 tablet 06/23/24 10:32 06/23/24 18:14
Carbidopa (25 Mg)/Levodopa (100 Mg) Regular Release Tablet PO 07/20/24 17:59 2.5 tablet
TID@0800,1400,1800 MICHAEL Administration
Carvedilol 3.125 mg 06/22/24 18:00 06/23/24 18:17
Carvedilol 3.125 Mg Tablet PO 07/20/24 17:59 3.125 mg
QPM MICHAEL Administration
Citalopram Hydrobromide 20 mg 06/22/24 18:00 06/23/24 18:13
Citalopram 20 Mg Tablet PO 07/20/24 17:59 20 mg
QPM MICHAEL Administration
Clonazepam 0.5 mg 06/22/24 08:00 06/22/24 08:20
Clonazepam 0.5 Mg Tablet PO 07/20/24 07:59 0.5 mg
TID@0800,1400,1800 MICHAEL Administration
Clonazepam 0.5 mg 06/23/24 18:42
Clonazepam 0.5 Mg Tablet PO 07/21/24 18:41
BIDPRN PRN
anxiety
Cyanocobalamin 1,000 mcg 06/22/24 08:00 06/23/24 08:34
Cyanocobalamin 1,000 Mcg Tablet PO 07/20/24 07:59 1,000 mcg
DAILY MICHAEL Administration
Donepezil HCl 10 mg 06/22/24 18:00 06/23/24 18:16
Donepezil Hcl 10 Mg Tablet PO 07/20/24 17:59 10 mg
QPM MICHAEL Administration
Entacapone 200 mg 06/22/24 18:00 06/23/24 20:57
Entacapone 200 Mg Tablet PO 07/20/24 17:59 200 mg
0800,1000,1400,1800,2100 MICHAEL Administration
Lorazepam 1 mg 06/23/24 18:43
Lorazepam 2 Mg/Ml Vial IV 07/21/24 18:42
Q4HPRN PRN
seizure/benzo withdrawal
Melatonin 9 mg 06/22/24 22:00 06/23/24 20:57
Melatonin 3 Mg Tablet PO 07/20/24 21:59 9 mg
HS MICHAEL Administration
Pantoprazole Sodium 20 mg 06/22/24 08:00 06/23/24 08:34
Pantoprazole 20 Mg Delayed Release Tablet PO 07/20/24 07:59 20 mg
DAILY MICHAEL Administration
Polyethylene Glycol 17 grams 06/22/24 08:00 06/23/24 08:33
Polyethylene Glycol Powder 17 Grams Packet PO 07/20/24 07:59 17 grams
DAILY MICHAEL Administration
Rotigotine 4 mg 06/22/24 08:00 06/23/24 09:56
Rotigotine (Neupro) 4 Mg Patch TRANSDERM 07/20/24 07:59 4 mg
DAILY MICHAEL Administration
Rotigotine 2 mg 06/22/24 08:00 06/23/24 09:56
Rotigotine (Neupro) 2 Mg Patch TRANSDERM 07/20/24 07:59 2 mg
DAILY MICHAEL Administration
Sennosides 8.6 mg 06/22/24 18:00 06/23/24 18:13
Sennosides (Senokot) 8.6 Mg Tablet PO 07/20/24 17:59 8.6 mg
QPM MICHAEL Administration
Sodium Chloride 0 flush 06/21/24 23:00
Sodium Chloride 0.9% (Flush) Syringe IV 07/19/24 22:59
PER PROTOCOL MICHAEL
Sodium Chloride 0.5 ml 06/23/24 19:03
Nss (Pf) 10 Ml Vial For Ativan 1 Mg Dose IV 07/21/24 19:02
Q4HPRN PRN
IV LORAZEPAM DILUTION
Solifenacin 5 mg 06/22/24 18:00 06/23/24 18:13
Solifenacin Succinate (Vesicare) 5 Mg Tablet PO 07/20/24 17:59 5 mg
QPM MICHAEL Administration
Warfarin Sodium 5 mg 06/22/24 20:00 06/22/24 21:42
Warfarin 5 Mg Tablet PO 06/27/24 19:59 5 mg
SuTuThSa@1999 MICHAEL Administration
Warfarin Sodium 4 mg 06/23/24 20:00 06/23/24 20:57
Warfarin 4 Mg Tablet PO 06/28/24 19:59 4 mg
MoWeFr@1999 MICHAEL Administration
Home Medications
�Medication �Instructions �Recorded
citalopram 20 mg tablet 20 mg PO QPM Depression 07/02/14
cyanocobalamin (vitamin B-12) 500 1,000 mcg PO DAILY Supplement 07/02/14
mcg tablet (Vitamin B-12)
acetaminophen 325 mg tablet 650 mg PO BIDPRN PRN mild pain ##0 10/16/16
carbidopa 37.5 mg-levodopa 150 1 tab PO 5/D Parkinsons ##0 10/16/16
mg-entacapone 200 mg tablet
carvedilol 3.125 mg tablet 3.125 mg PO QPM Heart 10/16/16
Disease/Condition
clonazepam 0.5 mg tablet 0.5 mg PO TID@0800,1400,1800 ##0 10/16/16
pantoprazole 20 mg tablet,delayed 20 mg PO DAILY Gastrointestinal 10/16/16
release Issue ##0
polyethylene glycol 3350 17 gram 17 g PO DAILY constipation 10/16/16
oral powder packet
rotigotine 6 mg/24 hour 6 mg transdermal DAILY Parkinsons 10/16/16
transdermal 24 hour patch (Neupro) ##0
sennosides 8.6 mg tablet (senna) 8.6 mg PO QPM Constipation ##0 10/16/16
solifenacin 5 mg tablet 5 mg PO QPM Urinary Issue 10/16/16
warfarin 5 mg tablet (Jantoven) 5 mg PO .4X WEEKLY@1999 Blood Clot 10/16/16
Prevention/Tx
atorvastatin 10 mg tablet (Lipitor) 10 mg PO QPM High Cholesterol 10/29/19
melatonin 3 mg capsule 9 mg PO HS Sleep 10/29/19
bisacodyl 10 mg rectal suppository 10 mg MA DAILYPRN PRN constipation 06/06/23
(Dulcolax (bisacodyl))
carbidopa 25 mg-levodopa 100 mg 1 tab PO TID@0800,1400,1800 06/06/23
tablet (Sinemet) parkinsons
donepezil 10 mg tablet (Aricept) 10 mg PO QPM dementia 06/06/23
acetaminophen 325 mg tablet 650 mg PO BID Pain 06/21/24
cranberry 500 mg capsule 500 mg PO DAILY Supplement 06/21/24
dextran 70-hypromellose 0.1 %-0.3 1 drp BOTH EYES BID dry eyes 06/21/24
% eye drops (Artificial Tears
(dextran 70-hypromellose))
memantine 10 mg tablet 10 mg PO BID dementia 06/21/24
therapeutic multivitamin 1 tab PO DAILY Supplement 06/21/24
warfarin 4 mg tablet 4 mg PO .3X WEEKLY@2000 Blood Clot 06/21/24
Prevention/Tx
Vital Signs and Labs
-
Vital Signs and Labs:
Vital Signs
Temp Pulse Resp BP Pulse Ox
36.9 C 71 18 142/89 94
06/24/24 07:00 06/24/24 07:00 06/24/24 07:00 06/24/24 07:00 06/24/24 07:00
Lab Results
06/23/24 06:18
06/23/24 06:19
PT 16.5 Sec (11.4-14.6) H 06/24/24 06:49
INR 1.35 06/24/24 06:49
Sodium 141 mmol/L (135-145) 06/23/24 06:19
Potassium 3.9 mmol/L (3.5-5.1) 06/23/24 06:19
BUN 20 mg/dl (9-20) 06/23/24 06:19
Glucose 100 mg/dl (70-99) H 06/23/24 06:19
Calcium 9.4 mg/dl (8.4-10.2) 06/23/24 06:19
Vitamin B12 923 pg/ml (239-931) 06/22/24 06:44
Medications
-
Medications:
Generic Name Dose Route Start Last Admin
Trade Name Freq PRN Reason Stop Dose Admin
Acetaminophen 650 mg 06/21/24 22:56
Acetaminophen 325 Mg Tablet PO 07/19/24 22:55
Q4HPRN PRN
mild pain/ fever>100.5F
Carbidopa/Levodopa 1.5 tablet 06/22/24 18:00 06/24/24 10:14
Carbidopa (25 Mg)/Levodopa (100 Mg) Regular Release Tablet PO 07/20/24 17:59 1.5 tablet
BID@1000,2100 MICHAEL Administration
Carbidopa/Levodopa 2.5 tablet 06/23/24 10:32 06/24/24 08:34
Carbidopa (25 Mg)/Levodopa (100 Mg) Regular Release Tablet PO 07/20/24 17:59 2.5 tablet
TID@0800,1400,1800 MICHAEL Administration
Carvedilol 3.125 mg 06/22/24 18:00 06/23/24 18:17
Carvedilol 3.125 Mg Tablet PO 07/20/24 17:59 3.125 mg
QPM MICHAEL Administration
Citalopram Hydrobromide 20 mg 06/22/24 18:00 06/23/24 18:13
Citalopram 20 Mg Tablet PO 07/20/24 17:59 20 mg
QPM MICHAEL Administration
Clonazepam 0.5 mg 06/22/24 08:00 06/22/24 08:20
Clonazepam 0.5 Mg Tablet PO 07/20/24 07:59 0.5 mg
TID@0800,1400,1800 MICHAEL Administration
Clonazepam 0.5 mg 06/23/24 18:42
Clonazepam 0.5 Mg Tablet PO 07/21/24 18:41
BIDPRN PRN
anxiety
Cyanocobalamin 1,000 mcg 06/22/24 08:00 06/24/24 08:34
Cyanocobalamin 1,000 Mcg Tablet PO 07/20/24 07:59 1,000 mcg
DAILY MICHAEL Administration
Donepezil HCl 10 mg 06/22/24 18:00 06/23/24 18:16
Donepezil Hcl 10 Mg Tablet PO 07/20/24 17:59 10 mg
QPM MICHAEL Administration
Entacapone 200 mg 06/22/24 18:00 06/24/24 10:13
Entacapone 200 Mg Tablet PO 07/20/24 17:59 200 mg
0800,1000,1400,1800,2100 MICHAEL Administration
Lorazepam 1 mg 06/23/24 18:43
Lorazepam 2 Mg/Ml Vial IV 07/21/24 18:42
Q4HPRN PRN
seizure/benzo withdrawal
Melatonin 9 mg 06/22/24 22:00 06/23/24 20:57
Melatonin 3 Mg Tablet PO 07/20/24 21:59 9 mg
HS MICHAEL Administration
Pantoprazole Sodium 20 mg 06/22/24 08:00 06/24/24 08:35
Pantoprazole 20 Mg Delayed Release Tablet PO 07/20/24 07:59 20 mg
DAILY MICHAEL Administration
Polyethylene Glycol 17 grams 06/22/24 08:00 06/24/24 08:37
Polyethylene Glycol Powder 17 Grams Packet PO 07/20/24 07:59 17 grams
DAILY MICHAEL Administration
Rotigotine 4 mg 06/22/24 08:00 06/24/24 08:36
Rotigotine (Neupro) 4 Mg Patch TRANSDERM 07/20/24 07:59 4 mg
DAILY MICHAEL Administration
Rotigotine 2 mg 06/22/24 08:00 06/24/24 08:36
Rotigotine (Neupro) 2 Mg Patch TRANSDERM 07/20/24 07:59 2 mg
DAILY MICHAEL Administration
Sennosides 8.6 mg 06/22/24 18:00 06/23/24 18:13
Sennosides (Senokot) 8.6 Mg Tablet PO 07/20/24 17:59 8.6 mg
QPM MICHAEL Administration
Sodium Chloride 0 flush 06/21/24 23:00
Sodium Chloride 0.9% (Flush) Syringe IV 07/19/24 22:59
PER PROTOCOL MICHAEL
Sodium Chloride 0.5 ml 06/23/24 19:03
Nss (Pf) 10 Ml Vial For Ativan 1 Mg Dose IV 07/21/24 19:02
Q4HPRN PRN
IV LORAZEPAM DILUTION
Solifenacin 5 mg 06/22/24 18:00 06/23/24 18:13
Solifenacin Succinate (Vesicare) 5 Mg Tablet PO 07/20/24 17:59 5 mg
QPM MICHAEL Administration
Warfarin Sodium 5 mg 06/22/24 20:00 06/22/24 21:42
Warfarin 5 Mg Tablet PO 06/27/24 19:59 5 mg
SuTuThSa@1999 [facility] Administration
Warfarin Sodium 4 mg 06/23/24 20:00 06/23/24 20:57
Warfarin 4 Mg Tablet PO 06/28/24 19:59 4 mg
MoWeFr@1999 [facility] Administration
Home Medications
-
Home Medications
citalopram 20 mg tablet 20 mg PO QPM Depression 07/02/14
cyanocobalamin (vitamin B-12) 500 mcg tablet (Vitamin B-12) 1,000 mcg PO DAILY Supplement 07/02/14
acetaminophen 325 mg tablet 650 mg PO BIDPRN PRN mild pain ##0 10/16/16
carbidopa 37.5 mg-levodopa 150 mg-entacapone 200 mg tablet 1 tab PO 5/D Parkinsons ##0 10/16/16
carvedilol 3.125 mg tablet 3.125 mg PO QPM Heart Disease/Condition 10/16/16
clonazepam 0.5 mg tablet 0.5 mg PO TID@0800,1400,1800 ##0 10/16/16
pantoprazole 20 mg tablet,delayed release 20 mg PO DAILY Gastrointestinal Issue ##0 10/16/16
polyethylene glycol 3350 17 gram oral powder packet 17 g PO DAILY constipation 10/16/16
rotigotine 6 mg/24 hour transdermal 24 hour patch (Neupro) 6 mg transdermal DAILY Parkinsons ##0 10/16/16
sennosides 8.6 mg tablet (senna) 8.6 mg PO QPM Constipation ##0 10/16/16
solifenacin 5 mg tablet 5 mg PO QPM Urinary Issue 10/16/16
warfarin 5 mg tablet (Jantoven) 5 mg PO .4X WEEKLY@1999 Blood Clot Prevention/Tx 10/16/16
atorvastatin 10 mg tablet (Lipitor) 10 mg PO QPM High Cholesterol 10/29/19
melatonin 3 mg capsule 9 mg PO HS Sleep 10/29/19
bisacodyl 10 mg rectal suppository (Dulcolax (bisacodyl)) 10 mg MA DAILYPRN PRN constipation 06/06/23
carbidopa 25 mg-levodopa 100 mg tablet (Sinemet) 1 tab PO TID@0800,1400,1800 parkinsons 06/06/23
donepezil 10 mg tablet (Aricept) 10 mg PO QPM dementia 06/06/23
acetaminophen 325 mg tablet 650 mg PO BID Pain 06/21/24
cranberry 500 mg capsule 500 mg PO DAILY Supplement 06/21/24
dextran 70-hypromellose 0.1 %-0.3 % eye drops (Artificial Tears (dextran 70-hypromellose)) 1 drp BOTH EYES BID dry eyes 06/21/24
memantine 10 mg tablet 10 mg PO BID dementia 06/21/24
therapeutic multivitamin 1 tab PO DAILY Supplement 06/21/24
warfarin 4 mg tablet 4 mg PO .3X WEEKLY@1999 Blood Clot Prevention/Tx 06/21/24
[2024-06-24] MEDS: VITAMIN B-12 1000 MCG PO (08:34)
[2024-06-24] MEDS: SINEMET 25-100 2.5 TABLET PO ×3 (08:34→17:27)
[2024-06-24] MEDS: PROTONIX 20 MG PO (08:35)
[2024-06-24] MEDS: NEUPRO 4 MG TRANSDERM (08:36)
[2024-06-24] MEDS: NEUPRO 2 MG TRANSDERM (08:36)
[2024-06-24] MEDS: MIRALAX 17 GRAMS PO (08:37)
[2024-06-24] MEDS: COMTAN 200 MG PO ×5 (08:37→20:38)
--- NOTE | 2024-06-24 09:53 | W.PN.UPDATE ---
Update Note
Progress Note Update
Patient seen and evaluated. He still notes left-sided abdominal pain. He is slightly tender still on the left side. Not distinctly directly over the aorta, but cannot say definitively. He is not uncomfortable or toxic appearing at all. I
discussed with the son Gilles as well over the phone just now. He does wish for us to proceed with endovascular repair of abdominal aortic aneurysm. Given his father's overall condition and potential symptomatic status, they would favor and we would
favor likely treating him while he is here. Therefore we will plan endovascular aneurysm repair this upcoming , 06/29/2024. Will obtain CT angiogram upcoming as well so I can better plan sizing of endograft.
[2024-06-24] MEDS: SINEMET 25-100 1.5 TABLET PO ×2 (10:14→20:34)
--- NOTE | 2024-06-24 11:04 | W.PN.HOSP.TC ---
Today's Communication/Plan
-
see note
Assessment / Plan
Assessment / Plan
# Acute toxic metabolic encephalopathy - Improved
-Improved today more, alert and oriented today.
-Suspected etiology include polypharmacy vs progressive dementia.
-Baseline unclear, CT head with no acute abnormalities, CXR unremarkable, no FND, no signs of acute infection.
-Hold rotigotine, Namenda. Will resume back in 24 hours if continues to remain stable
-B12, TSH unremarkable.
-RPR pending
#Lower abdominal discomfort
-Left> Right, with left-sided guarding on palpation.
-Reports related to his nightmares and improves with defecation.
-Most likely from his AAA.
-Assessment for EVAR ongoing.
#Infrarenal AAA
-Previous size 3.6 cm in 2013, currently 6.2 cm.
-Vascular surgeon discussed with patient's son in person plan to go for EVAR on
#Type 2 diabetes mellitus
-Diet controlled
#Paroxysmal A-fib
-Patient remains subtherapeutic for last 3 days, will require 48-72 hours to be therapeutic and by that time patient will needed to be normalized for surgery on
-Maintain patient on Lovenox therapeutic dose till Wednesday evening and switch to heparin drip on Wednesday morning
-Continue coreg for rate control
#Essential hypertension
-Continue carvedilol.
#Hyperlipidemia
-Continue atorvastatin.
#Parkinson disease with dementia
-Continue carbidopa-levodopa, entacapone and rotigotine
-Continue donepezil.
-Hold Namenda.
#Anxiety/Depression
-Continue citalopram and clonazepam
DVT PPx: Lovenox
CODE STATUS: Full code
Anticipated Discharge: > 48 hours
Subjective/Interval History
-
Date of Service: June 24, 2024
Patient resting comfortably in bed
Remains calm and answering questions appropriately
No reported agitations episode
Patient remains afebrile
Objective Data
-
Labs:
Laboratory Results
06/24/24
06:49
PT 16.5 H
INR 1.35
Vital Signs:
Vital Signs
Temp Pulse Resp BP Pulse Ox
98.4 F 71 18 142/89 94
06/24/24 07:00 06/24/24 07:00 06/24/24 07:00 06/24/24 07:00 06/24/24 07:00
I&O
06/23/24 06/24/24 06/25/24
06:59 06:59 05:59
Intake Total 240 / 240 1320 / 1320
Balance 240 / 240 1320 / 1320
Review of Systems
-
Respiratory: Reports No Symptoms
Cardiac: Reports No Symptoms
Abdomen/GI: Reports No Symptoms
Physical Exam
-
General: No Apparent Distress and Comfortable
Respiratory: Clear to Auscultation; Negative Rales or Crackles
Cardiac: Regular Rhythm and S1/S2
GI: Soft, Nontender and Distended
Neuro: Awake, Alert and No Motor Deficits
Psych: Calm
[2024-06-24 15:00] VITALS: BP 156/95
[2024-06-24] MEDS: COREG 3.125 MG PO (17:19)
[2024-06-24] MEDS: CELEXA 20 MG PO (17:19)
[2024-06-24] MEDS: ARICEPT 10 MG PO (17:19)
[2024-06-24] MEDS: SENOKOT 8.6 MG PO (17:26)
[2024-06-24] MEDS: VESICARE 5 MG PO (17:26)
[2024-06-24] MEDS: COUMADIN 5 MG PO (20:27)
[2024-06-24] MEDS: FLUSH (NSS) 1 FLUSH IV (20:40)
[2024-06-24] MEDS: MELATONIN 9 MG PO (22:26)
[2024-06-24 23:00] VITALS: BP 156/95
[2024-06-25 05:13] LABS: Hematocrit 43.3 % (39.0-52.0); Hemoglobin 14.7 g/dL (13.0-18.0); Mean Corp Hgb Conc. 33.9 g/dL (33.0-37.0); Mean Corpuscular Hgb 30.3 pg (27.0-31.0); Mean Corpuscular Volume 89.3 fL (80.0-94.0); Mean Platelet Volume 9.5 fL (7.4-10.4); Platelet Count 196 10^3/uL (130-400); Red Blood Cell Count 4.85 10^6/uL (4.70-6.10); Red Cell Dist. Width 14.2 % (11.5-14.5); White Blood Cell Count 6.4 10^3/uL (4.8-10.8)
[2024-06-25 05:17] LABS: INR 1.36; PT 16.6 Sec (11.4-14.6)
[2024-06-25 05:28] LABS: Blood Urea Nitrogen 18 mg/dl (9-20); Calcium 10.1 mg/dl (8.4-10.2); Carbon Dioxide 26 mmol/L (22-30); Chloride 104 mmol/L (98-107); Estimated Creatinine Clearance 72 ml/min; Glucose 118 mg/dl (70-99); Potassium 4.2 mmol/L (3.5-5.1); Sodium 140 mmol/L (135-145); eGFR > 60.00
[2024-06-25 07:00] VITALS: BP 155/96
--- NOTE | 2024-06-25 07:28 | PTCARENOTE ---
Patient with T 102.2 Tylenol per prn order. TT to CL, covering house. To monitor and recheck in am. T99.7 this am communicated To CL. Labs as ordered.
[2024-06-25] MEDS: PROTONIX 20 MG PO (08:03)
[2024-06-25] MEDS: SINEMET 25-100 2.5 TABLET PO ×3 (08:03→18:14)
[2024-06-25] MEDS: VITAMIN B-12 1000 MCG PO (08:03)
[2024-06-25] MEDS: COMTAN 200 MG PO ×5 (08:03→20:20)
[2024-06-25] MEDS: MIRALAX 17 GRAMS PO (08:04)
[2024-06-25] MEDS: NEUPRO 2 MG TRANSDERM (08:04)
[2024-06-25] MEDS: NEUPRO 4 MG TRANSDERM (08:05)
--- NOTE | 2024-06-25 09:23 | W.PN.UPDATE ---
Update Note
Progress Note Update
CT angiogram images reviewed. Suitable endovascular candidate anatomically. As noted in my note from yesterday, plan EVAR 06/29/2024. Holding Coumadin.
[2024-06-25] MEDS: SINEMET 25-100 1.5 TABLET PO ×2 (10:46→20:20)
--- NOTE | 2024-06-25 13:43 | W.PN.HOSP.TC ---
Addendum entered and electronically signed by Alex Putnam MD 06/25/24 13:51:
Case discussed with neuro
Resuming back half home dose klonopin TID (0.25mg) to avoid BZD withdrawal issues. Last dose was on 06/22.
Original Note:
Today's Communication/Plan
-
see note
Assessment / Plan
Assessment / Plan
# Acute toxic metabolic encephalopathy - Improved
-Improved today more, alert and oriented today.
-Suspected etiology include polypharmacy vs progressive dementia.
-Baseline unclear, CT head with no acute abnormalities, CXR unremarkable, no FND, no signs of acute infection.
-B12, TSH unremarkable.
-RPR pending
-Discussed with neuro as patient have some waxing and waning mentation changes. Discussed with son/family at bedside that slow stepwise medication change is warranted if indicated as patient on complex meds.
#Lower abdominal discomfort
-Left> Right, with left-sided guarding on palpation.
-Reports related to his nightmares and improves with defecation.
-Most likely from his AAA.
-Assessment for EVAR ongoing.
#Infrarenal AAA
-Previous size 3.6 cm in 2013, currently 6.2 cm.
-Vascular surgeon discussed with patient's son in person plan to go for EVAR on
#Type 2 diabetes mellitus
-Diet controlled
#Paroxysmal A-fib
-Patient remains subtherapeutic for last 3 days, will require 48-72 hours to be therapeutic and by that time patient will needed to be normalized for surgery on
-Maintain patient on Lovenox therapeutic dose till Wednesday evening and switch to heparin drip on Wednesday morning
-Continue coreg for rate control
#Essential hypertension
-Continue carvedilol.
#Hyperlipidemia
-Continue atorvastatin.
#Parkinson disease with dementia
-Continue carbidopa-levodopa, entacapone and rotigotine
-Continue donepezil.
-Hold Namenda.
#Anxiety/Depression
-Continue citalopram and clonazepam
DVT PPx: Lovenox
CODE STATUS: Full code
Total time spent : 52 mins
case discussed with neuro/family
Anticipated Discharge: > 48 hours
Subjective/Interval History
-
Date of Service: June 25, 2024
Remains pleasantly disoriented
Afebrile in the night
No new issues reported
Objective Data
-
Labs:
Laboratory Results
06/25/24
04:16
WBC 6.4
Hgb 14.7
Hct 43.3
Plt Count 196 D
PT 16.6 H
INR 1.36
Sodium 140
Potassium 4.2
Chloride 104
Carbon Dioxide 26
BUN 18
Creatinine 1.0
Glucose 118 H
Calcium 10.1
Vital Signs:
Vital Signs
Temp Pulse Resp BP Pulse Ox
98.0 F 75 16 155/96 94
06/25/24 07:00 06/25/24 07:00 06/25/24 07:00 06/25/24 07:00 06/25/24 10:53
I&O
06/24/24 06/25/24 06/26/24
07:59 06:59 06:59
Intake Total
Balance
Review of Systems
-
Unable to obtain full review of systems at this time due to: Acuity and Language Barrier
Physical Exam
-
General: No Apparent Distress and Comfortable
Respiratory: Clear to Auscultation; Negative Rales or Crackles
Cardiac: Regular Rhythm and S1/S2
GI: Soft, Nontender and Distended
Neuro: Awake, Alert and No Motor Deficits
Psych: Calm
--- NOTE | 2024-06-25 13:45 | CM ---
Reviewed chart, met with patient's son to obtain information for assessment. Patient's son stated that patient lives in the [facility] and has been there for about 5 years. He receives assistance with all ADLs, dressing, bathing and ambulates
with a walker for short distances and a rollator for longer community distances. Patient is unable to self propel.
Patient is set up for grooming. He is set up for eating. He is on a low calorie diet.
Patient is a bed hold per family.
Patient's son would like to have patient return to [facility] when medically stable.
Cox letter reviewed. Signed on chart.
Spoke with attending who stated that patient will move to inpatient status, particularly as he is getting surgery on .
Plan: Case management will continue to follow and assist with discharge planning. Back to [facility]. Will contact admissions.
[2024-06-25 15:00] VITALS: BP 141/79
--- NOTE | 2024-06-25 15:14 | PTCARENOTE ---
Assumed care of this pt. Pt resting in bed. VSS. Previous nursing assessment stands. Call carrillo in reach, bed alarm in place.
[2024-06-25] MEDS: KLONOPIN 0.25 MG PO ×2 (16:13→20:20)
[2024-06-25] MEDS: ARICEPT 10 MG PO (18:13)
[2024-06-25] MEDS: VESICARE 5 MG PO (18:13)
[2024-06-25] MEDS: COREG 3.125 MG PO (18:13)
[2024-06-25] MEDS: SENOKOT 8.6 MG PO (18:14)
[2024-06-25] MEDS: CELEXA 20 MG PO (18:14)
[2024-06-25] MEDS: COUMADIN 5 MG PO (20:20)
[2024-06-25] MEDS: MELATONIN 9 MG PO (22:16)
[2024-06-25 23:05] VITALS: BP 156/83
[2024-06-26 06:56] LABS: Hematocrit 44.1 % (39.0-52.0); Hemoglobin 15.2 g/dL (13.0-18.0); Mean Corp Hgb Conc. 34.5 g/dL (33.0-37.0); Mean Corpuscular Hgb 30.5 pg (27.0-31.0); Mean Corpuscular Volume 88.6 fL (80.0-94.0); Mean Platelet Volume 9.3 fL (7.4-10.4); Platelet Count 196 10^3/uL (130-400); Red Blood Cell Count 4.98 10^6/uL (4.70-6.10); Red Cell Dist. Width 14.5 % (11.5-14.5); White Blood Cell Count 6.2 10^3/uL (4.8-10.8)
[2024-06-26 07:05] LABS: INR 1.47; PT 17.6 Sec (11.4-14.6)
[2024-06-26 07:19] LABS: Blood Urea Nitrogen 22 mg/dl (9-20); Calcium 10.2 mg/dl (8.4-10.2); Carbon Dioxide 26 mmol/L (22-30); Chloride 105 mmol/L (98-107); Estimated Creatinine Clearance 66 ml/min; Glucose 127 mg/dl (70-99); Potassium 4.1 mmol/L (3.5-5.1); Sodium 142 mmol/L (135-145); eGFR > 60.00
[2024-06-26 07:24] VITALS: BMI 31.6
[2024-06-26 07:32] VITALS: BP 146/96
[2024-06-26] MEDS: VITAMIN B-12 1000 MCG PO (08:05)
[2024-06-26] MEDS: PROTONIX 20 MG PO (08:05)
[2024-06-26] MEDS: KLONOPIN 0.25 MG PO ×3 (08:05→17:04)
[2024-06-26] MEDS: MIRALAX 17 GRAMS PO (08:06)
[2024-06-26] MEDS: SINEMET 25-100 2.5 TABLET PO ×2 (08:09→14:39)
[2024-06-26] MEDS: NEUPRO 2 MG TRANSDERM (08:15)
[2024-06-26] MEDS: NEUPRO 4 MG TRANSDERM (08:17)
--- NOTE | 2024-06-26 08:20 | W.PN.HOSP.TC ---
Addendum entered and electronically signed by Aleena Engel MD 06/26/24 17:28:
78-year-old male admitted with confusion
CT angiogram-infrarenal AAA 6.20 5.5 cm.� Mild atherosclerotic calcifications of the aorta with resultant moderate stenosis of the proximal celiac artery.� No significant stenosis within bilateral iliac or visualized femoral artery.� Moderate
colonic and rectal stool burden.
EKG-incomplete right bundle branch block.� Nonspecific ST-T changes.
CVS: S1-S2 normal
Chest: CTA B/L
Abdomen: Soft, mild suprapubic tenderness, Bowel sounds present
Extremities: No edema, normal pulses
# Acute toxic metabolic encephalopathy
CT head without acute changes
Improved suspect polypharmacy versus progressive dementia
B12 and TSH unremarkable
RPR pending
# Lower abdominal discomfort-possibly secondary to constipation
# Infrarenal AAA previously 3.6 Endometrin 2013 now 6.2 cm
Vascular surgeon discussed with patient's son regarding EVAR on
# Type 2 diabetes-diet controlled
# Paroxysmal atrial fibrillation-on Coumadin . Subtheraputic INR.
Continue Coreg.� Usually on Coumadin as outpatient
Switch to Lovenox
# History pacemaker
# Hypertension-continue Coreg
# Hyperlipidemia-continue atorvastatin
# Parkinson disease with dementia-continue carbidopa levodopa QID , entacapone 4 times a day, Rotigotine decreased to 4 mg daily. continue, Donepezil.Holding Namenda
# History of stroke
# GERD-continue PPI
# History of dysphagia-speech eval
# Anxiety and depression-continue Celexa and Klonopin
# Ambulatory dysfunction/DJD/cervical stenosis
# DVT prophylaxis-Lovenox
# Full code
D/W Pharmacy
D/W RN
Original Note:
Today's Communication/Plan
-
Continue Lovenox today, transition to heparin drip tomorrow morning
Neuro regimen clarified
Assessment / Plan
Assessment / Plan
Impression: 78-year-old male with PMH of Parkinson's disease, A-fib on AC, who presented to ED on 06/21 with worsening confusion and weakness from [facility] where he has been living for 10 years. He was recently started on Namenda on 05/31
otherwise no medication changes.
Assessment/plan:
# Acute toxic metabolic encephalopathy - Improved
-Patient alert and oriented, improved mental status baseline unknown.
-Suspected etiology include polypharmacy vs progressive dementia.
-CT head with no acute abnormalities, CXR unremarkable, no FND, no signs of acute infection.
-B12, TSH unremarkable.
-RPR pending
-Discussed with neuro as patient have some waxing and waning mentation changes. Discussed with son/family at bedside that slow stepwise medication change is warranted if indicated as patient on complex meds.
#Constipation
-Bilateral lower abdominal discomfort that improves with defecation.
-CT abdomen/pelvic 06/24 reports moderate fecal burden.
-Continue bowel regimen.
#Infrarenal AAA
-Previous size 3.6 cm in 2013, currently 6.2 cm.
-Vascular surgeon discussed with patient's son in person plan to go for EVAR on 06/29/2024
#Type 2 diabetes mellitus
-Diet controlled
#Paroxysmal A-fib
-Patient remains subtherapeutic for last 3 days, will require 48-72 hours to be therapeutic and by that time patient will needed to be normalized for surgery on
-Maintain patient on Lovenox therapeutic dose till evening today, and switch to heparin drip on Wednesday morning.
-Continue coreg for rate control
#Essential hypertension
-Continue carvedilol.
#Hyperlipidemia
-Continue atorvastatin.
#Parkinson disease with dementia
-Medication doses clarified.
-Carbidopa�levodopa 1.5 tabs 4 times daily, entacapone 200 mg 4 times daily, Neupro 4 mg patch once daily.
-Continue donepezil 10 mg daily.
-Stop Namenda.
-Appreciate neurology.
#Anxiety/Depression
-Continue citalopram and clonazepam
DVT PPx: Lovenox
CODE STATUS: Full code
Data:
CT abdomen/pelvis angio w/wo 06/24/2024:
Infrarenal abdominal aortic aneurysm measuring approximately 6.2 x 5.5 cm. There is mild atherosclerotic calcifications of the aorta with resultant moderate stenosis of the proximal celiac artery. There is no significant stenosis within the
bilateral iliac or visualized femoral arteries.
Mild/moderate colonic and rectal stool burden.
CT abdomen/pelvis without IV or oral contrast 06/21/2024:
1. No significant acute abnormality identified in the abdomen or pelvis, within the limits of unenhanced CT, as described above.
2. Fusiform infrarenal abdominal aortic aneurysm measures up to 6.2 cm in AP dimension (previously 3.6 cm in 2013).
Anticipated Discharge: > 48 hours
Subjective/Interval History
-
Date of Service: June 26, 2024
Patient seen and examined by me. Was sitting in bed enjoying breakfast. He reports lower abdominal discomfort relieved with defecation. He thinks he is constipated. Otherwise denies chest pain, shortness of breath or palpitations, fever, chills.
Objective Data
-
Labs:
Laboratory Results
06/26/24
06:34
WBC 6.2
Hgb 15.2
Hct 44.1
Plt Count 196
PT 17.6 H
INR 1.47
Sodium 142
Potassium 4.1
Chloride 105
Carbon Dioxide 26
BUN 22 H
Creatinine 1.1
Glucose 127 H
Calcium 10.2
Vital Signs:
Vital Signs
Temp Pulse Resp BP Pulse Ox
98.4 F 76 16 146/96 95
06/26/24 07:32 06/26/24 07:32 06/26/24 07:32 06/26/24 07:32 06/26/24 07:32
I&O
06/25/24 06/26/24 06/27/24
06:59 06:59 06:59
Intake Total 1620 / 1620
Balance 1620 / 1620
Review of Systems
-
History Source: Patient
All other systems: Not reviewed unless documented
Constitutional: Reports No Symptoms; Denies Fever or Fatigue
Respiratory: Reports No Symptoms; Denies Cough, Trouble Breathing or Wheezing
Cardiac: Reports No Symptoms; Denies Chest Pain or Palpitations
Abdomen/GI: Reports Other (b/l lower abd discomfort relieved with defecation. ); Denies Abdominal Pain, Nausea, Vomiting or Diarrhea
Genitourinary: Reports No Symptoms
Skin: Reports No Symptoms
Neuro: Reports Tremors (Parkinson dz); Denies Dizzy or Headache
Physical Exam
-
General: No Apparent Distress and Comfortable
Respiratory: Clear to Auscultation; Negative Rales or Crackles
Cardiac: Regular Rhythm and S1/S2
GI: Soft, Nontender and Distended
Musculoskeletal: No Clubbing
Skin: Warm
Neuro: Awake, Alert and No Motor Deficits
Psych: Calm
Data Reviewed
-
Diagnostic Radiology: Image personally visualized and interpreted, Report Reviewed by me and Discussed with Physician
CT Scan: Image personally visualized and interpreted, Report Reviewed by me and Discussed with Physician
Labs: Labs Reviewed by me and Discussed with Physician
Old Records: Reviewed
[2024-06-26] MEDS: COMTAN 200 MG PO ×5 (08:25→21:18)
--- NOTE | 2024-06-26 10:41 | CM ---
Reviewed the chart notes and spoke with the patient at the bedside. Patient is scheduled for EVAR on 06/29/24. Referral for return to SNF sent to [facility] via [facility]. CM continues to be available to patient/family and is monitoring medical
plan for needs at discharge.
Plan: Discharge back to the [facility]. 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
[2024-06-26] MEDS: SINEMET 25-100 1.5 TABLET PO ×3 (11:03→21:18)
--- NOTE | 2024-06-26 13:20 | PTCARENOTE ---
patient with lower abd discomfort, L>R on palpation, otherwise appears comfortable, tolerating diet, turns with assist x2, vss, will continue to monitor.
[2024-06-26 14:29] VITALS: BP 134/81; PULSE 72
[2024-06-26 15:19] VITALS: BP 134/81; PULSE 72
[2024-06-26 15:22] VITALS: BP 134/81
[2024-06-26] MEDS: LOVENOX 100 MG SC (16:53)
[2024-06-26] MEDS: SENOKOT 8.6 MG PO (17:04)
[2024-06-26] MEDS: VESICARE 5 MG PO (17:05)
[2024-06-26] MEDS: COREG 3.125 MG PO (17:05)
[2024-06-26] MEDS: ARICEPT 10 MG PO (17:05)
[2024-06-26] MEDS: CELEXA 20 MG PO (17:05)
[2024-06-26] MEDS: MELATONIN 9 MG PO (21:18)
[2024-06-26 22:30] VITALS: BP 138/84
[2024-06-27] MEDS: LOVENOX 100 MG SC ×2 (04:18→15:38)
[2024-06-27 07:15] VITALS: BP 143/88
[2024-06-27 08:08] LABS: Mean Corp Hgb Conc. 34.1 g/dL (33.0-37.0); Mean Corpuscular Hgb 30.6 pg (27.0-31.0); Mean Corpuscular Volume 89.7 fL (80.0-94.0); Mean Platelet Volume 9.9 fL (7.4-10.4); Platelet Count 185 10^3/uL (130-400); Red Blood Cell Count 4.57 10^6/uL (4.70-6.10); Red Cell Dist. Width 14.6 % (11.5-14.5); White Blood Cell Count 5.8 10^3/uL (4.8-10.8)
[2024-06-27 08:32] LABS: Blood Urea Nitrogen 29 mg/dl (9-20); Calcium 9.5 mg/dl (8.4-10.2); Carbon Dioxide 26 mmol/L (22-30); Chloride 108 mmol/L (98-107); Estimated Creatinine Clearance 72 ml/min; Glucose 104 mg/dl (70-99); Potassium 4.1 mmol/L (3.5-5.1); Sodium 143 mmol/L (135-145); eGFR > 60.00
[2024-06-27] MEDS: NEUPRO 4 MG TRANSDERM (10:00)
[2024-06-27] MEDS: MIRALAX 17 GRAMS PO (10:01)
[2024-06-27] MEDS: KLONOPIN 0.25 MG PO ×3 (10:01→18:04)
[2024-06-27] MEDS: PROTONIX 20 MG PO (10:01)
[2024-06-27] MEDS: VITAMIN B-12 1000 MCG PO (10:01)
[2024-06-27] MEDS: SINEMET 25-100 1.5 TABLET PO ×4 (10:04→21:14)
[2024-06-27] MEDS: COMTAN 200 MG PO ×4 (10:08→21:14)
--- NOTE | 2024-06-27 10:14 | W.PN.HOSP.TC ---
Today's Communication/Plan
-
Continue Lovenox, hold on a.m. of procedure
Assessment / Plan
Assessment / Plan
Impression: 78-year-old male with PMH of Parkinson's disease, A-fib on AC, who presented to ED on 06/21 with worsening confusion and weakness from [facility] where he has been living for 10 years. He was recently started on Namenda on 05/31
otherwise no medication changes.
Assessment/plan:
# Acute toxic metabolic encephalopathy - Improved
-Patient alert and oriented, improved mental status baseline unknown.
-Suspected etiology include polypharmacy vs progressive dementia.
-CT head with no acute abnormalities, CXR unremarkable, no FND, no signs of acute infection.
-B12, TSH unremarkable.
-RPR negative.
-Discussed with neuro as patient have some waxing and waning mentation changes. Discussed with son/family at bedside that slow stepwise medication change is warranted if indicated as patient on complex meds.
#Constipation
-Bilateral lower abdominal discomfort that improves with defecation.
-CT abdomen/pelvic 06/24 reports moderate fecal burden.
-Continue bowel regimen.
#Infrarenal AAA
-Previous size 3.6 cm in 2013, currently 6.2 cm.
-Vascular surgeon discussed with patient's son in person plan to go for EVAR on 06/29/2024
-Continue Lovenox and hold on the morning of procedure per vascular.
#Type 2 diabetes mellitus
-Diet controlled
#Stage 2 sacral/groin pressure injury
-Blanchable.
-Pressure redistribution.
#Paroxysmal A-fib
-Patient remains subtherapeutic for last 3 days, will require 48-72 hours to be therapeutic and by that time patient will needed to be normalized for surgery on .
-Continue coreg for rate control
#Essential hypertension
-Continue carvedilol.
#Hyperlipidemia
-Continue atorvastatin.
#Parkinson disease with dementia
-Medication doses clarified.
-Carbidopa�levodopa 1.5 tabs 4 times daily, entacapone 200 mg 4 times daily, Neupro 4 mg patch once daily.
-Continue donepezil 10 mg daily.
-Stop Namenda.
-Appreciate neurology.
#Anxiety/Depression
-Continue citalopram and clonazepam
DVT PPx: Lovenox
CODE STATUS: Full code
Data:
CT abdomen/pelvis angio w/wo 06/24/2024:
Infrarenal abdominal aortic aneurysm measuring approximately 6.2 x 5.5 cm. There is mild atherosclerotic calcifications of the aorta with resultant moderate stenosis of the proximal celiac artery. There is no significant stenosis within the
bilateral iliac or visualized femoral arteries.
Mild/moderate colonic and rectal stool burden.
CT abdomen/pelvis without IV or oral contrast 06/21/2024:
1. No significant acute abnormality identified in the abdomen or pelvis, within the limits of unenhanced CT, as described above.
2. Fusiform infrarenal abdominal aortic aneurysm measures up to 6.2 cm in AP dimension (previously 3.6 cm in 2013).
Anticipated Discharge: > 48 hours
Subjective/Interval History
-
Date of Service: June 27, 2024
Patient was seen and examined in the room lying comfortably on the bed. Reports that his abdominal pain has almost gone away with defecation. He does not have any abdominal pain today. He denies chest pain, shortness of breath, headaches,
palpitations, fever, chills.
Objective Data
-
Labs:
Laboratory Results
06/27/24
07:14
WBC 5.8
Hgb 14.0
Hct 41.0
Plt Count 185
Sodium 143
Potassium 4.1
Chloride 108 H
Carbon Dioxide 26
BUN 29 H
Creatinine 1.0
Glucose 104 H
Calcium 9.5
Vital Signs:
Vital Signs
Temp Pulse Resp BP Pulse Ox
98.5 F 75 16 143/88 99
06/27/24 07:15 06/27/24 07:15 06/27/24 07:15 06/27/24 07:15 06/27/24 07:15
I&O
06/26/24 06/27/24 06/28/24
06:59 06:59 06:59
Intake Total 1620 / 1620 1160 / 1160
Balance 1620 / 1620 1160 / 1160
Review of Systems
-
History Source: Patient
All other systems: Not reviewed unless documented
Constitutional: Reports No Symptoms; Denies Fever or Fatigue
Respiratory: Reports No Symptoms; Denies Cough, Trouble Breathing or Wheezing
Cardiac: Reports No Symptoms; Denies Chest Pain or Palpitations
Abdomen/GI: Reports Other (b/l lower abd discomfort relieved with defecation. ); Denies Abdominal Pain, Nausea, Vomiting or Diarrhea
Genitourinary: Reports No Symptoms
Skin: Reports No Symptoms
Neuro: Reports Tremors (Parkinson dz); Denies Dizzy or Headache
Physical Exam
-
General: No Apparent Distress and Comfortable
Respiratory: Clear to Auscultation; Negative Rales or Crackles
Cardiac: Regular Rhythm and S1/S2
GI: Soft, Nontender and Distended
Musculoskeletal: No Clubbing
Skin: Warm
Neuro: Awake, Alert and No Motor Deficits
Psych: Calm
Data Reviewed
-
Diagnostic Radiology: Image personally visualized and interpreted, Report Reviewed by me and Discussed with Physician
CT Scan: Image personally visualized and interpreted, Report Reviewed by me and Discussed with Physician
Labs: Labs Reviewed by me and Discussed with Physician
Old Records: Reviewed
--- NOTE | 2024-06-27 14:28 | PN.CDI ---
CDI
- -
CDI:
Physician Documentation Request
Admit Date: 06/25/24 17:33
Dear Doctor Von,
Patient admitted with acute toxic metabolic encephalopathy.
06/23 Nursing skin assessment, 'Stage 2 sacral pressure injury.'
Physician documentation of the type and location of wounds is required for compliant documentation. Based on the above clinical findings and your assessment, please provide the following in your progress note:
Type (etiology) of ulcer/wound:
- Pressure (decubitus) ulcer
- Other
- Unable to determine
For a pressure ulcer, please also include the stage* of the ulcer:
- Stage 1 - Skin intact, non-blanchable redness
- Stage 2 - Partial thickness loss of dermis, includes intact or open blister
- Stage 3 - Full thickness tissue not including bone, tendon or muscle
- Stage 4 - Full thickness tissue loss, including exposed bone, tendon or muscle
- Unstageable - Full thickness loss in which the base of the ulcer is covered by slough (yellow, cam, trujillo, green or brown) and/or eschar (cam, brown or black) in the wound bed.
- Unable to determine
Use of terms such as suspected, likely, concern for, or probable (associated with a specific diagnosis that is being evaluated, monitored, or treated as if it exists) are acceptable and can be coded in the inpatient setting, when documented at the
time of discharge.
Thank you,
Radha HILLMAN,RN,CCDS
CDI Specialist
Available via [place] text
Please use your independent medical judgment in providing your response.
*Source: National Pressure Ulcer Advisory Panel (NPUAP)
--- NOTE | 2024-06-27 14:46 | W.PN.UPDATE ---
Update Note
Progress Note Update
78-year-old male admitted with confusion
I personally performed a history and physical exam of the patient and discussed management with the resident. I reviewed the resident's note and agree with the documented findings and plan of care HPI/CC except for changes in my documentation.
CT angiogram-infrarenal AAA 6.20 5.5 cm.� Mild atherosclerotic calcifications of the aorta with resultant moderate stenosis of the proximal celiac artery.� No significant stenosis within bilateral iliac or visualized femoral artery.� Moderate
colonic and rectal stool burden.
EKG-incomplete right bundle branch block.� Nonspecific ST-T changes.
CVS: S1-S2 normal
Chest: CTA B/L
Abdomen: Soft, no suprapubic tenderness, Bowel sounds present
Extremities: No edema, normal pulses
# Acute toxic metabolic encephalopathy
CT head without acute changes
Improved suspect polypharmacy versus progressive dementia
B12 and TSH unremarkable
RPR neg
# Lower abdominal discomfort-possibly secondary to constipation. Better
# Infrarenal AAA previously 3.6 Endometrin 2013 now 6.2 cm
Vascular surgeon discussed with patient's son regarding EVAR on
# Type 2 diabetes-diet controlled
# Paroxysmal atrial fibrillation-on Coumadin . Subtheraputic INR.
Continue Coreg.� Usually on Coumadin as outpatient
Switched to Lovenox
# History pacemaker
# Hypertension-continue Coreg
# Hyperlipidemia-continue atorvastatin
# Parkinson disease with dementia-continue carbidopa levodopa QID , entacapone 4 times a day, Rotigotine decreased to 4 mg daily. continue, Donepezil.Holding Namenda
# History of stroke
# GERD-continue PPI
# History of dysphagia-speech eval
# Anxiety and depression-continue Celexa and Klonopin
# Ambulatory dysfunction/DJD/cervical stenosis
# DVT prophylaxis-Lovenox
# Full code
Part of this note was created using voice recognition system. Occasional wrong word or��sound alike� substitutions may have inadvertently occurred due to the inherent limitations of voice recognition software. If noted kindly bring it to my
attention for correction.
[2024-06-27 15:05] VITALS: BP 108/64
[2024-06-27 15:13] VITALS: BMI 31.6
[2024-06-27] MEDS: VESICARE 5 MG PO (17:52)
[2024-06-27] MEDS: COREG PO (18:04)
[2024-06-27] MEDS: ARICEPT 10 MG PO (18:05)
[2024-06-27] MEDS: SENOKOT 8.6 MG PO (18:05)
[2024-06-27] MEDS: CELEXA 20 MG PO (18:05)
[2024-06-27] MEDS: MELATONIN 9 MG PO (21:14)
[2024-06-27 23:50] VITALS: BP 127/74
[2024-06-28] MEDS: LOVENOX 100 MG SC (04:05)
[2024-06-28 06:42] LABS: Hematocrit 41.9 % (39.0-52.0); Hemoglobin 14.1 g/dL (13.0-18.0); Mean Corp Hgb Conc. 33.7 g/dL (33.0-37.0); Mean Corpuscular Hgb 30.5 pg (27.0-31.0); Mean Corpuscular Volume 90.7 fL (80.0-94.0); Mean Platelet Volume 9.3 fL (7.4-10.4); Platelet Count 176 10^3/uL (130-400); Red Blood Cell Count 4.62 10^6/uL (4.70-6.10); Red Cell Dist. Width 14.9 % (11.5-14.5); White Blood Cell Count 5.6 10^3/uL (4.8-10.8)
[2024-06-28 07:17] VITALS: BP 132/83
--- NOTE | 2024-06-28 07:50 | W.PN.HOSP.TC ---
Addendum entered and electronically signed by Aleena Engel MD 06/28/24 14:31:
Spoke to son and updated.
Son stated that patient is still somewhat confused. He was asking for his recliner chair and also about [employer]. We discussed that patient has dementia and being in a hospital is also making him confused. I also made son aware that I do
not know if he will ever get back to his previous baseline but with the med changes that we made we just need to watch him.
Addendum entered and electronically signed by Aleena Engel MD 06/28/24 14:08:
Meds discussed with pharmacy .
Discussed with -outpatient neurologist regarding med changes.
This patient is not having any Parkinson symptoms symptoms okay to leave patient on current dose and then have him follow-up with her after discharge.
D/W Vascular
Left a message for son
Cards preop eval.
ECHO and EKG
time spent over 52 min
Addendum entered and electronically signed by Aleena Engel MD 06/28/24 14:02:
78-year-old male admitted with confusion
I personally performed a history and physical exam of the patient and discussed management with the resident. I reviewed the resident's note and agree with the documented findings and plan of care HPI/CC except for changes in my documentation.
CT angiogram-infrarenal AAA 6.20 5.5 cm.� Mild atherosclerotic calcifications of the aorta with resultant moderate stenosis of the proximal celiac artery.� No significant stenosis within bilateral iliac or visualized femoral artery.� Moderate
colonic and rectal stool burden.
EKG-incomplete right bundle branch block.� Nonspecific ST-T changes.
CVS: S1-S2 normal
Chest: CTA B/L
Abdomen: Soft, no suprapubic tenderness, Bowel sounds present
Extremities: No edema, normal pulses
HEAD LOADER Awake and alert, NO rigidity,
# Acute toxic metabolic encephalopathy
CT head without acute changes
Improved suspect polypharmacy versus progressive dementia
B12 and TSH unremarkable
RPR neg
B1 Pending
# Lower abdominal discomfort-possibly secondary to constipation. Better
# Infrarenal AAA previously 3.6 Endometrin 2013 now 6.2 cm
Vascular surgeon discussed with patient's son regarding EVAR on
Lovenox held
Cards eval for Preop
EKG and ECHO ordered.
# Type 2 diabetes-diet controlled
# Paroxysmal atrial fibrillation-on Coumadin as OP
Continue Coreg.�
Started Lovenox Wednesday
Per discussion with Dr Valenzuela , will need to be held starting now for the next 24 hours.
Cardiology evaluation requested
# History pacemaker
# Hypertension-continue Coreg
# Hyperlipidemia-continue atorvastatin
# Parkinson disease with dementia-continue carbidopa levodopa QID , entacapone 200 mg 4 times a day, Rotigotine decreased to 4 mg daily. continue, Donepezil.Holding Namenda
# History of stroke
# GERD-continue PPI
# History of dysphagia-speech eval
# Anxiety and depression-continue Celexa and Klonopin
# Ambulatory dysfunction/DJD/cervical stenosis
# DVT prophylaxis-Lovenox held. SCDS added
# Full code
Part of this note was created using voice recognition system. Occasional wrong word or��sound alike� substitutions may have inadvertently occurred due to the inherent limitations of voice recognition software. If noted kindly bring it to my
attention for correction.
Original Note:
Today's Communication/Plan
-
Continue Lovenox on hold in a.m.
EVAR in a.m.
Assessment / Plan
Assessment / Plan
Impression: 78-year-old male with PMH of Parkinson's disease, A-fib on AC, who presented to ED on 06/21 with worsening confusion and weakness from [facility] where he has been living for 10 years. He was recently started on Namenda on 05/31
otherwise no medication changes.
Assessment/plan:
# Acute toxic metabolic encephalopathy - Improved
-Patient alert and oriented, improved mental status baseline unknown.
-Suspected etiology include polypharmacy vs progressive dementia.
-CT head with no acute abnormalities, CXR unremarkable, no FND, no signs of acute infection.
-B12, TSH unremarkable.
-RPR negative.
-Discussed with neuro as patient have some waxing and waning mentation changes. Discussed with son/family at bedside that slow stepwise medication change is warranted if indicated as patient on complex meds.
#Constipation
-Bilateral lower abdominal discomfort that improves with defecation.
-CT abdomen/pelvic 06/24 reports moderate fecal burden.
-Continue bowel regimen.
#Infrarenal AAA
-Previous size 3.6 cm in 2013, currently 6.2 cm.
-EVAR in a.m.
-Continue Lovenox and hold in a.m.
#Type 2 diabetes mellitus
-Diet controlled
#Stage 2 sacral/groin pressure injury
-Blanchable.
-Pressure redistribution.
#Paroxysmal A-fib
-Patient remains subtherapeutic for last 3 days, will require 48-72 hours to be therapeutic and by that time patient will needed to be normalized for surgery on .
-Continue coreg for rate control
#Essential hypertension
-Continue carvedilol.
#Hyperlipidemia
-Continue atorvastatin.
#Parkinson disease with dementia
-Medication doses clarified.
-Carbidopa�levodopa 1.5 tabs 4 times daily, entacapone 200 mg 4 times daily, Neupro 4 mg patch once daily.
-Continue donepezil 10 mg daily.
-Stop Namenda.
-Appreciate neurology.
#Anxiety/Depression
-Continue citalopram and clonazepam
DVT PPx: Lovenox
CODE STATUS: Full code
Data:
CT abdomen/pelvis angio w/wo 06/24/2024:
Infrarenal abdominal aortic aneurysm measuring approximately 6.2 x 5.5 cm. There is mild atherosclerotic calcifications of the aorta with resultant moderate stenosis of the proximal celiac artery. There is no significant stenosis within the
bilateral iliac or visualized femoral arteries.
Mild/moderate colonic and rectal stool burden.
CT abdomen/pelvis without IV or oral contrast 06/21/2024:
1. No significant acute abnormality identified in the abdomen or pelvis, within the limits of unenhanced CT, as described above.
2. Fusiform infrarenal abdominal aortic aneurysm measures up to 6.2 cm in AP dimension (previously 3.6 cm in 2013).
Anticipated Discharge: > 48 hours
Subjective/Interval History
-
Date of Service: June 28, 2024
Patient was seen and examined. There is no acute event reported overnight. He was sitting comfortably on his bed in no apparent acute cardiopulmonary distress. Reports minimal abdominal pain that improves with defecation otherwise does not have
any chest pain, shortness of breath, palpitations, fever or chills today.
Objective Data
-
Labs:
Laboratory Results
06/28/24
06:15
WBC 5.6
Hgb 14.1
Hct 41.9
Plt Count 176
Sodium Pending
Potassium Pending
Chloride Pending
Carbon Dioxide Pending
BUN Pending
Creatinine Pending
Glucose Pending
Calcium Pending
Vital Signs:
Vital Signs
Temp Pulse Resp BP Pulse Ox
97.8 F 75 18 132/83 95
06/28/24 07:17 06/28/24 07:17 06/28/24 07:17 06/28/24 07:17 06/28/24 07:17
I&O
06/27/24 06/28/24 06/29/24
06:59 06:59 06:59
Intake Total 1160 / 1160 660 / 660
Balance 1160 / 1160 660 / 660
Review of Systems
-
History Source: Patient
All other systems: Not reviewed unless documented
Constitutional: Reports No Symptoms; Denies Fever or Fatigue
Respiratory: Reports No Symptoms; Denies Cough, Trouble Breathing or Wheezing
Cardiac: Reports No Symptoms; Denies Chest Pain or Palpitations
Abdomen/GI: Reports Other (b/l lower abd discomfort relieved with defecation. ); Denies Abdominal Pain, Nausea, Vomiting or Diarrhea
Genitourinary: Reports No Symptoms
Skin: Reports No Symptoms
Neuro: Reports Tremors (Parkinson dz); Denies Dizzy or Headache
Physical Exam
-
General: No Apparent Distress and Comfortable
Respiratory: Clear to Auscultation; Negative Rales or Crackles
Cardiac: Regular Rhythm and S1/S2
GI: Soft, Nontender and Distended
Musculoskeletal: No Clubbing
Skin: Warm
Neuro: Awake, Alert and No Motor Deficits
Psych: Calm
Data Reviewed
-
Diagnostic Radiology: Image personally visualized and interpreted, Report Reviewed by me and Discussed with Physician
CT Scan: Image personally visualized and interpreted, Report Reviewed by me and Discussed with Physician
Labs: Labs Reviewed by me and Discussed with Physician
Old Records: Reviewed
[2024-06-28 07:56] LABS: Blood Urea Nitrogen 33 mg/dl (9-20); Calcium 9.8 mg/dl (8.4-10.2); Carbon Dioxide 29 mmol/L (22-30); Chloride 107 mmol/L (98-107); Estimated Creatinine Clearance 66 ml/min; Glucose 108 mg/dl (70-99); Potassium 4.4 mmol/L (3.5-5.1); Sodium 145 mmol/L (135-145); eGFR > 60.00
[2024-06-28] MEDS: MIRALAX 17 GRAMS PO (08:17)
[2024-06-28] MEDS: NEUPRO 4 MG TRANSDERM (08:17)
[2024-06-28] MEDS: VITAMIN B-12 1000 MCG PO (08:17)
[2024-06-28] MEDS: PROTONIX 20 MG PO (08:17)
[2024-06-28] MEDS: KLONOPIN 0.25 MG PO ×3 (08:17→18:06)
[2024-06-28] MEDS: SINEMET 25-100 1.5 TABLET PO ×4 (08:22→22:17)
[2024-06-28] MEDS: COMTAN 200 MG PO ×4 (08:22→22:18)
[2024-06-28 12:00] VITALS: BP 121/71; BP 158/80; PULSE 71
[2024-06-28 12:01] VITALS: BP 121/71; BP 158/80; PULSE 71
--- NOTE | 2024-06-28 13:52 | W.PN.UPDATE ---
Update Note
Progress Note Update
Seen and evaluated. Overall looks okay. No significant left-sided tenderness today on exam. Discussed with him plan for OR/EVAR tomorrow. I had discussed already with his son/POA. Plan for EVAR tomorrow.
--- NOTE | 2024-06-28 14:42 | CARDSERVLU ---
Echocardiogram with Lumason completed after protocol screening completed. Allergies verified.
Patent IV site: _Right arm median antebrachial 20 G PC____
IV site flushed with 0.9% NaCl pre and post administration.
Diluted bolus method utilized to enhance visualization of ventricular smyth.
Total volume given: __3__ mL
Patient tolerated all procedures well without complications.
[2024-06-28 15:00] VITALS: BMI 31.6
--- NOTE | 2024-06-28 16:00 | CON.CAR ---
Addendum entered and electronically signed by Juju Romero MD 06/28/24 16:41:
I saw and examined the patient.
The Lap Welder's note was reviewed and I agree with the note.
Comment: He is very pleasant. He has dementia. He is able to answer some questions and much of the history is obtained from the chart. He denies chest pain and palpitations. He lives at [facility] and it is
unclear how much activity he is able to perform. He came in with polypharmacy and change in mental status and then was found to have abdominal pain and was noted to have a large likely symptomatic infrarenal abdominal aortic aneurysm and cardiac
consult is requested for EVAR in the morning. He has paroxysmal atrial fibrillation for which he is on oral anticoagulation. No bleeding episodes noted. He has Medtronic pacemaker in place with last check in January. Echocardiogram with
normal heart function and no significant valve disease but possibly mild to moderate thoracic aorta dilation (previous mild). Functional assessment is not possible.
His exam is without current acute abnormality.
Plan at this time:
-He has no acute cardiac symptoms. He is not having active angina, EKG changes or arrhythmia. He is stable from a cardiovascular point of view to proceed with upcoming EVAR. He is at least moderate cardiovascular risk but risk is not prohibitive
and surgery/procedure is necessary for what appears to be symptomatic abdominal aortic aneurysm. Further cardiac testing will not change treatment plan. We will monitor him closely.
-Increase carvedilol to usual twice daily dosing. Follow blood pressure.
-We have placed him on ribbon blocker. Follow-up. We ordered EKG and EKG is stable.
-Dementia and other medical issues per hospitalist service.
-[facility] nursing monitors patient INRs and we will eventually resume Coumadin.
Original Note:
Consultation
Consultation Request
Date/Time Consultation Performed: 06/28/24
Requesting Provider: Dr. Engel
Performing Provider: Hilary Nova PA-C for Dr. Juju Romero
Reason for Consultation: preop eval
Medical History
-
Chief Complaint: altered mental status
History of Present Illness:
Patient is a 78-year-old male with past medical history of Parkinson's and dementia, abdominal aortic aneurysm and aortic root dilatation, paroxysmal atrial fibrillation on chronic Coumadin, sick sinus syndrome status post Medtronic PPM, HTN, HLD
who presented to due to altered mental status/confusion noted by nursing staff at his facility. After evaluation including head CT which was negative for acute abnormality, felt most likely to be secondary to polypharmacy vs progressive dementia.
Then complained of lower abd pain and underwent CTAP which showed progression of known infrarenal AAA now measuring 6.2 x 5.5cm. Now planned for EVAR in AM per vascular. Cardiology consulted for preop eval.
PMH:
Parkinson's disease
dementia
infrarenal AAA
aortic root dilatation
PAF
Chronic OAC with coumadin
SSS s/p medtronic PPM
HTN
HLD
GERD
Anxiety/depression
Past Medical History
Past Medical History: Other (in HPI)
Social History
Tobacco: Non-Smoker
Alcohol: None
Living: Other ([facility])
Family History
Family History: Other (CHF in father)
Allergies / Home Medications
Allergy/AdvReac Type Severity Reaction Status Date / Time
oxycodone HCl [From Percocet] Allergy vomitting Verified 06/06/23 01:18
�Medication �Instructions �Recorded �Confirmed �Type
citalopram 20 mg tablet 20 mg PO QPM Depression 07/02/14 06/21/24 History
cyanocobalamin (vitamin B-12) 500 1,000 mcg PO DAILY Supplement 07/02/14 06/21/24 History
mcg tablet (Vitamin B-12)
acetaminophen 325 mg tablet 650 mg PO BIDPRN PRN mild pain ##0 10/16/16 06/21/24 History
carbidopa 37.5 mg-levodopa 150 1 tab PO 5/D Parkinsons ##0 10/16/16 06/21/24 History
mg-entacapone 200 mg tablet
carvedilol 3.125 mg tablet 3.125 mg PO QPM Heart 10/16/16 06/21/24 History
Disease/Condition
clonazepam 0.5 mg tablet 0.5 mg PO TID@0800,1400,1800 ##0 10/16/16 06/21/24 History
pantoprazole 20 mg tablet,delayed 20 mg PO DAILY Gastrointestinal 10/16/16 06/21/24 History
release Issue ##0
polyethylene glycol 3350 17 gram 17 g PO DAILY constipation 10/16/16 06/21/24 History
oral powder packet
rotigotine 6 mg/24 hour 6 mg transdermal DAILY Parkinsons 10/16/16 06/21/24 History
transdermal 24 hour patch (Neupro) ##0
sennosides 8.6 mg tablet (senna) 8.6 mg PO QPM Constipation ##0 10/16/16 06/21/24 History
solifenacin 5 mg tablet 5 mg PO QPM Urinary Issue 10/16/16 06/21/24 History
warfarin 5 mg tablet (Jantoven) 5 mg PO .4X WEEKLY@1999 Blood Clot 10/16/16 06/21/24 History
Prevention/Tx
atorvastatin 10 mg tablet (Lipitor) 10 mg PO QPM High Cholesterol 10/29/19 06/21/24 History
melatonin 3 mg capsule 9 mg PO HS Sleep 10/29/19 06/21/24 History
bisacodyl 10 mg rectal suppository 10 mg DE DAILYPRN PRN constipation 06/06/23 06/21/24 History
(Dulcolax (bisacodyl))
carbidopa 25 mg-levodopa 100 mg 1 tab PO TID@0800,1400,1800 06/06/23 06/21/24 History
tablet (Sinemet) parkinsons
donepezil 10 mg tablet (Aricept) 10 mg PO QPM dementia 06/06/23 06/21/24 History
acetaminophen 325 mg tablet 650 mg PO BID Pain 06/21/24 06/21/24 History
cranberry 500 mg capsule 500 mg PO DAILY Supplement 06/21/24 06/21/24 History
dextran 70-hypromellose 0.1 %-0.3 1 drp BOTH EYES BID dry eyes 06/21/24 06/21/24 History
% eye drops (Artificial Tears
(dextran 70-hypromellose))
memantine 10 mg tablet 10 mg PO BID dementia 06/21/24 06/21/24 History
therapeutic multivitamin 1 tab PO DAILY Supplement 06/21/24 06/21/24 History
warfarin 4 mg tablet 4 mg PO .3X WEEKLY@2000 Blood Clot 06/21/24 06/21/24 History
Prevention/Tx
Review of Systems
-
History Source: Patient
All other systems: Negative unless noted
Physical Exam
Vital Signs
Temp Pulse Resp BP Pulse Ox
98.4 F 76 18 132/83 92
06/28/24 15:21 06/28/24 15:21 06/28/24 15:21 06/28/24 07:17 06/28/24 15:21
Lab Results
06/28/24 06:15
06/28/24 06:15
Physical Exam
General: No Apparent Distress and Comfortable
HEENT: Normocephalic, Anicteric and Moist Mucous Membranes
Respiratory: Clear and Non Labored Respirations
Cardiac: S1/S2 and Regular Rhythm
GI: Soft, Non Tender, Non Distended and Normal Bowel Sounds
Musculoskeletal: No Clubbing, No Cyanosis and No Edema
Skin: Warm and Dry
Neuro: AO x 3
Impression / Plan
-
Primary Logging Tractor Operator Swamp: Dr. Keen
Assessment:
Presentation with altered mental status/confusion
TME, concern for polypharmacy
Abd pain
infrarenal AAA with progression in size, planned for EVAR 06/29/24
Parkinson's disease
dementia
aortic root dilatation
PAF
Chronic OAC with coumadin
SSS s/p medtronic PPM
HTN
HLD
GERD
Anxiety/depression
ECHO 11/2020: EF 55 to 60%, moderate concentric LVH, aortic sclerosis, mild AR, trace TR, PAP 25 mmHg, mildly dilated aortic root with sinus of Valsalva measuring 3.9 cm
ECHO 08/2022: EF 55 to 60%, LVH, aortic sclerosis, mild AR, mild TR, mild DE, root measured as 3.6 cm
Echo 06/28/2024: EF 60 to 65%, mild LVH, mildly enlarged RV size, pacer wire seen in RV, MAC, aortic sclerosis, trace AR, trace TR, PAP 15 to 20 mmHg, dilated aortic root, top normal ascending aorta, sinus of Valsalva measuring 4.4 cm
Plan:
-Patient presented with altered mental status/confusion with concern for polypharmacy versus progressive dementia as etiology
-Then with complaints of abdominal pain and CT of the abdomen and pelvis showed progression of infrarenal AAA measuring 6.2 x 5.5 cm. Vascular surgery consulted and patient planned for EVAR 06/29/2024
-Cardiology consulted for preop evaluation
-no recent falls or CP
-EKG ordered by me stable compared to prior, in atrial paced rhythm
-Will place on telemetry perioperatively
-echos reviewed, as above
-BPs stable. only listed as being on coreg once daily as OP. will change to BID dosing. monitor for orthostasis, if so, would consider transition to toprol QPM.
-on coumadin as OP. last INR 1.47 on 06/26. currently on therapeutic lovenox. goal INR 2-3. was on alternating 4 and 5mg prior to admission
-patient at elevated but acceptable cardiovascular risk, ok to proceed with procedure as planned
-will follow postoperatively
-will need OP follow up of dilated aortic root
-follow mental status post operatively, still with confusion at times
-d/w nursing
Data Reviewed
-
EKG: Tracing Personally Visualized and interpreted
CT Scan: Report Reviewed by me
Medical Tests (Nuc Med, Echo etc): Report Reviewed by me
Labs: Labs Reviewed by me
Old Records: Reviewed
[2024-06-28] MEDS: VESICARE 5 MG PO (18:04)
[2024-06-28] MEDS: ARICEPT 10 MG PO (18:05)
[2024-06-28] MEDS: SENOKOT 8.6 MG PO (18:05)
[2024-06-28] MEDS: COREG 3.125 MG PO (18:05)
[2024-06-28] MEDS: CELEXA 20 MG PO (18:07)
[2024-06-28 19:25] VITALS: BP 136/82
[2024-06-28] MEDS: MELATONIN 9 MG PO (22:19)
[2024-06-28 23:25] VITALS: BP 130/71
[2024-06-29] VITALS (14 sets, daily range): BP systolic 85–177; BP diastolic 51–90; BMI 31.6
--- NOTE | 2024-06-29 04:27 | PTCARENOTE ---
This RN assumed care of this pt at 0400 am.
[2024-06-29 06:42] LABS: Hematocrit 40.4 % (39.0-52.0); Hemoglobin 13.6 g/dL (13.0-18.0); Mean Corp Hgb Conc. 33.7 g/dL (33.0-37.0); Mean Corpuscular Hgb 29.7 pg (27.0-31.0); Mean Corpuscular Volume 88.2 fL (80.0-94.0); Mean Platelet Volume 9.3 fL (7.4-10.4); Platelet Count 187 10^3/uL (130-400); Red Blood Cell Count 4.58 10^6/uL (4.70-6.10); Red Cell Dist. Width 14.9 % (11.5-14.5); White Blood Cell Count 4.6 10^3/uL (4.8-10.8)
[2024-06-29 06:53] LABS: INR 1.19; PT 15.6 Sec (11.4-14.6)
[2024-06-29 06:54] LABS: APTT 31.8 Sec (23.4-35.0)
[2024-06-29 07:09] LABS: Blood Urea Nitrogen 27 mg/dl (9-20); Calcium 9.5 mg/dl (8.4-10.2); Carbon Dioxide 29 mmol/L (22-30); Chloride 105 mmol/L (98-107); Estimated Creatinine Clearance 72 ml/min; Glucose 100 mg/dl (70-99); Potassium 4.3 mmol/L (3.5-5.1); Sodium 142 mmol/L (135-145); eGFR > 60.00
--- NOTE | 2024-06-29 07:41 | W.PN.CARDCBS ---
Addendum entered and electronically signed by Bernard Govea MD 06/29/24 10:00:
I saw and examined the patient.
The Fisher Troll Line's note was reviewed and I agree with the note.
Comment: Briefly, 70-year-old man on warfarin who presents with abdominal pain found to have infrarenal abdominal aortic aneurysm
Planned for EVAR later today
No active cardiac complaints this AM
Outpatient Coumadin on hold for OR, would resume when safe from a surgical standpoint
Rest per Hilary Nova
Original Note:
Today's Communication / Plan
-
for EVAR today
will follow post operatively
Impression / Plan
-
Primary Inner Diameter Grinder Tool: Dr. Keen
Assessment:
Presentation with altered mental status/confusion
TME, concern for polypharmacy
Abd pain
infrarenal AAA with progression in size, planned for EVAR 06/29/24
Parkinson's disease
dementia
aortic root dilatation
PAF
Chronic OAC with coumadin, managed by [facility]
SSS s/p medtronic PPM
HTN
HLD
GERD
Anxiety/depression
ECHO 11/2020: EF 55 to 60%, moderate concentric LVH, aortic sclerosis, mild AR, trace TR, PAP 25 mmHg, mildly dilated aortic root with sinus of Valsalva measuring 3.9 cm
ECHO 08/2022: EF 55 to 60%, LVH, aortic sclerosis, mild AR, mild TR, mild SC, root measured as 3.6 cm
Echo 06/28/2024: EF 60 to 65%, mild LVH, mildly enlarged RV size, pacer wire seen in RV, MAC, aortic sclerosis, trace AR, trace TR, PAP 15 to 20 mmHg, dilated aortic root, top normal ascending aorta, sinus of Valsalva measuring 4.4 cm
Plan:
-with abd pain and CTAP showed progression of infrarenal AAA. planned for EVAR today
-no CP, SOB, palpitations overnight
-apaced rhythm on review of tele overnight
-BPs stable. only listed as being on coreg once daily as OP. will change to BID dosing post op. monitor for orthostasis, if so, would consider transition to toprol QPM.
-on coumadin as OP, on hold for procedure. currently on therapeutic lovenox. goal INR 2-3. was on alternating 4 and 5mg prior to admission. resume post op when able
-patient at moderate but acceptable cardiovascular risk, ok to proceed with procedure as planned
-will follow postoperatively
-will need OP follow up of dilated aortic root
-follow mental status post operatively, initially presented with confusion/TME
-d/w nursing
Progress Note - Inner Diameter Grinder Tool
Subjective
Date of Service: June 29, 2024
no CP, SOB, palpitations. continues with abd discomfort. for EVAR today
Objective
Labs:
06/29/24 06:15
06/29/24 06:15
Labs
Hgb 13.6 g/dL (13.0-18.0) 06/29/24 06:15
Hct 40.4 % (39.0-52.0) 06/29/24 06:15
Plt Count 187 10^3/uL (130-400) 06/29/24 06:15
PT 15.6 Sec (11.4-14.6) H 06/29/24 06:15
INR 1.19 06/29/24 06:15
APTT 31.8 Sec (23.4-35.0) 06/29/24 06:15
Sodium 142 mmol/L (135-145) 06/29/24 06:15
Potassium 4.3 mmol/L (3.5-5.1) 06/29/24 06:15
BUN 27 mg/dl (9-20) H 06/29/24 06:15
Creatinine 1.0 mg/dL (0.7-1.3) 06/29/24 06:15
Glucose 100 mg/dl (70-99) H 06/29/24 06:15
Vital Signs and I&O:
Vital Signs
Temp Pulse Resp BP Pulse Ox
97.7 F 62 16 134/81 93
06/29/24 04:15 06/29/24 04:15 06/29/24 04:15 06/29/24 04:15 06/29/24 04:15
Vital Signs
Temp Pulse Resp BP Pulse Ox
97.7 F 62 16 134/81 93
06/29/24 04:15 06/29/24 04:15 06/29/24 04:15 06/29/24 04:15 06/29/24 04:15
Intake & Output
06/26/24 06/27/24 06/28/24 06/29/24
07:59 07:59 07:59 07:59
Intake Total 1620 / 1620 1160 / 1160 660 / 660 660 / 660
Balance 1620 / 1620 1160 / 1160 660 / 660 660 / 660
Physical Exam
Physical Exam
GEN: No distress, awake, alert, flat affect
HEENT: supple, anicteric, mmm, eomi
LUNGS: CTA B/L, no wheezes/rales
CV: Reg, S1/S2, no murmur
ABD: soft, BS+, NT/ND
EXT: No cyanosis, clubbing, edema
NEURO: Gross non-focal
SKIN: Warm, pink, dry. No rash
[2024-06-29] MEDS: MIRALAX PO (07:52)
[2024-06-29] MEDS: SINEMET 25-100 1.5 TABLET PO ×3 (07:54→20:45)
[2024-06-29] MEDS: NEUPRO 4 MG TRANSDERM (07:57)
[2024-06-29] MEDS: PROTONIX 20 MG PO (08:00)
[2024-06-29] MEDS: COMTAN 200 MG PO ×3 (08:02→20:45)
[2024-06-29] MEDS: VITAMIN B-12 1000 MCG PO (08:03)
[2024-06-29] MEDS: KLONOPIN PO ×3 (08:04→18:19)
--- NOTE | 2024-06-29 08:38 | W.PN.UPDATE ---
Update Note
Progress Note Update
78-year-old male admitted with confusion
I personally performed a history and physical exam of the patient and discussed management with the resident. I reviewed the resident's note and agree with the documented findings and plan of care HPI/CC except for changes in my documentation.
CT angiogram-infrarenal AAA 6.20 5.5 cm.� Mild atherosclerotic calcifications of the aorta with resultant moderate stenosis of the proximal celiac artery.� No significant stenosis within bilateral iliac or visualized femoral artery.� Moderate
colonic and rectal stool burden.
EKG-incomplete right bundle branch block.� Nonspecific ST-T changes.
Echo 06/28/24-Normal LV size and function. Mild LVH. EF 60 to 65%. Mildly enlarged RV size. No MS. Trace TR. Trace AI. Pulmonary pressure 15 to 20 mmHg. Dilated aortic root. Ascending aorta 3.9 cm.
CVS: S1-S2 normal
Chest: CTA B/L
Abdomen: Soft, no suprapubic tenderness, Bowel sounds present
Extremities: No edema, normal pulses
HOME DEPOT REP Awake and alert, NO rigidity,
# Acute toxic metabolic encephalopathy
CT head without acute changes
Improved suspect polypharmacy versus progressive dementia
B12 and TSH unremarkable
RPR neg
B1 Pending
# Lower abdominal discomfort-possibly secondary to constipation. Better
# Infrarenal AAA previously 3.6 Endometrin 2013 now 6.2 cm
Vascular surgeon discussed with patient's son regarding EVAR on
Lovenox held
Cards eval for Preop appreciated
EKG and ECHO noted
# Type 2 diabetes-diet controlled
# Paroxysmal atrial fibrillation-on Coumadin as OP
Continue Coreg.�
Lovenox on hold
Restart anticoagulation when okay from vascular perspective after the procedure
# History pacemaker
# Hypertension-continue Coreg
# Hyperlipidemia-continue atorvastatin
# Parkinson disease with dementia-continue carbidopa levodopa QID , entacapone 200 mg 4 times a day, Rotigotine decreased to 4 mg daily. continue, Donepezil.Holding Namenda changes were discussed with .
# History of stroke-restart anticoagulation when safe from vascular perspective
# GERD-continue PPI
# History of dysphagia-speech eval
# Anxiety and depression-continue Celexa and Klonopin
# Ambulatory dysfunction/DJD/cervical stenosis
# DVT prophylaxis-Lovenox held. SCDS added
# Full code
Part of this note was created using voice recognition system. Occasional wrong word or��sound alike� substitutions may have inadvertently occurred due to the inherent limitations of voice recognition software. If noted kindly bring it to my
attention for correction.
[2024-06-29] MEDS: PERIDEX 0.12% ORAL RINSE 15 ML PO (08:46)
[2024-06-29] MEDS: BACTROBAN 2% OINTMENT 1 APPLIC NASAL (08:48)
--- NOTE | 2024-06-29 09:25 | W.PN.HOSP.TC ---
Today's Communication/Plan
-
EVAR today
Assessment / Plan
Assessment / Plan
Impression: 78-year-old male with PMH of Parkinson's disease, A-fib on AC, who presented to ED on 06/21 with worsening confusion and weakness from [facility] where he has been living for 10 years. He was recently started on Namenda on 05/31
otherwise no medication changes.
Assessment/plan:
# Acute toxic metabolic encephalopathy - Improved
-Patient alert and oriented, improved mental status baseline unknown.
-Suspected etiology include polypharmacy vs progressive dementia.
-CT head with no acute abnormalities, CXR unremarkable, no FND, no signs of acute infection.
-B12, TSH unremarkable.
-RPR negative.
-Discussed with neuro as patient have some waxing and waning mentation changes. Discussed with son/family at bedside that slow stepwise medication change is warranted if indicated as patient on complex meds.
#Constipation
-Bilateral lower abdominal discomfort that improves with defecation.
-CT abdomen/pelvic 06/24 reports moderate fecal burden.
-Continue bowel regimen.
#Infrarenal AAA
-Previous size 3.6 cm in 2013, currently 6.2 cm.
-EVAR today, Lovenox held in anticipation for surgery.
#Type 2 diabetes mellitus
-Diet controlled
#Stage 2 sacral/groin pressure injury
-Blanchable.
-Pressure redistribution.
#Paroxysmal A-fib
-Patient remains subtherapeutic for last 3 days, will require 48-72 hours to be therapeutic and by that time patient will needed to be normalized for surgery on .
-Continue coreg for rate control
#Essential hypertension
-Continue carvedilol.
#Hyperlipidemia
-Continue atorvastatin.
#Parkinson disease with dementia
-Medication doses clarified.
-Carbidopa�levodopa 1.5 tabs 4 times daily, entacapone 200 mg 4 times daily, Neupro 4 mg patch once daily.
-Continue donepezil 10 mg daily.
-Stop Namenda.
-Appreciate neurology.
#Anxiety/Depression
-Continue citalopram and clonazepam
DVT PPx: Lovenox
CODE STATUS: Full code
Data:
CT abdomen/pelvis angio w/wo 06/24/2024:
Infrarenal abdominal aortic aneurysm measuring approximately 6.2 x 5.5 cm. There is mild atherosclerotic calcifications of the aorta with resultant moderate stenosis of the proximal celiac artery. There is no significant stenosis within the
bilateral iliac or visualized femoral arteries.
Mild/moderate colonic and rectal stool burden.
CT abdomen/pelvis without IV or oral contrast 06/21/2024:
1. No significant acute abnormality identified in the abdomen or pelvis, within the limits of unenhanced CT, as described above.
2. Fusiform infrarenal abdominal aortic aneurysm measures up to 6.2 cm in AP dimension (previously 3.6 cm in 2013).
Anticipated Discharge: > 48 hours
Subjective/Interval History
-
Date of Service: June 29, 2024
Pt was seen and examined. He reports minimal LLQ abd pain but denies chest pain, SOB, fever and chills.
Objective Data
-
Labs:
Laboratory Results
06/29/24
06:15
WBC 4.6 L
Hgb 13.6
Hct 40.4
Plt Count 187
PT 15.6 H
INR 1.19
APTT 31.8
Sodium 142
Potassium 4.3
Chloride 105
Carbon Dioxide 29
BUN 27 H
Creatinine 1.0
Glucose 100 H
Calcium 9.5
Vital Signs:
Vital Signs
Temp Pulse Resp BP Pulse Ox
97.7 F 62 16 134/81 93
06/29/24 04:15 06/29/24 04:15 06/29/24 04:15 06/29/24 04:15 06/29/24 04:15
I&O
06/28/24 06/29/24 06/30/24
06:59 06:59 06:59
Intake Total 660 / 660 660 / 660
Balance 660 / 660 660 / 660
Review of Systems
-
History Source: Patient
All other systems: Not reviewed unless documented
Constitutional: Reports No Symptoms; Denies Fever or Fatigue
Respiratory: Reports No Symptoms; Denies Cough, Trouble Breathing or Wheezing
Cardiac: Reports No Symptoms; Denies Chest Pain or Palpitations
Abdomen/GI: Reports Other (b/l lower abd discomfort relieved with defecation. ); Denies Abdominal Pain, Nausea, Vomiting or Diarrhea
Genitourinary: Reports No Symptoms
Skin: Reports No Symptoms
Neuro: Reports Tremors (Parkinson dz); Denies Dizzy or Headache
Physical Exam
-
General: No Apparent Distress and Comfortable
Respiratory: Clear to Auscultation; Negative Rales or Crackles
Cardiac: Regular Rhythm and S1/S2
GI: Soft, Nontender and Distended
Musculoskeletal: No Clubbing
Skin: Warm
Neuro: Awake, Alert and No Motor Deficits
Psych: Calm
Data Reviewed
-
Diagnostic Radiology: Image personally visualized and interpreted, Report Reviewed by me and Discussed with Physician
CT Scan: Image personally visualized and interpreted, Report Reviewed by me and Discussed with Physician
Labs: Labs Reviewed by me and Discussed with Physician
Old Records: Reviewed
--- NOTE | 2024-06-29 10:09 | W.SUR.PREOP ---
Pre-Operative Surgical Note
-
I have examined this patient prior to the performance of the scheduled procedure.
The patient's condition is unchanged from the time of the current History and
Physical and the patient is able to undergo the scheduled procedure.
Discussed procedure of endovascular aneurysm repair again with the patient's son, his POA, Parveen Lorenzo over the phone. Again discussed risks fully (including but not limited to bleeding, infections, access site complications, branch vessel
injuries with endorgan issues (renal arteries, pelvic arteries, lower extremity arteries), endoleak's and need for continued surveillance). He understands all wishes for us to proceed.
[2024-06-29 13:03] LABS: Vitamin B1, Whole Blood 136 nmol/L (70-180)
[2024-06-29 13:52] LABS: Hematocrit 40.3 % (39.0-52.0); Hemoglobin 13.5 g/dL (13.0-18.0); Mean Corp Hgb Conc. 33.5 g/dL (33.0-37.0); Mean Corpuscular Hgb 30.7 pg (27.0-31.0); Mean Corpuscular Volume 91.6 fL (80.0-94.0); Mean Platelet Volume 9.6 fL (7.4-10.4); Platelet Count 161 10^3/uL (130-400); Red Cell Dist. Width 14.6 % (11.5-14.5)
--- NOTE | 2024-06-29 14:04 | OR.RPT ---
Operative Report
Operative Report
PROCEDURE DATE: 06/29/2024
Preoperative diagnosis: Abdominal aortic aneurysm, possibly symptomatic.
Postoperative diagnosis: Same
Procedure:
1. Endovascular repair of abdominal aortic aneurysm with aortobiiliac endograft (Endologix AFX-2 [id number]) with proximal suprarenal endograft extension (CAMPBELL A28-28/C95-020 V).
2. Pro-glide percutaneous right common femoral artery closure with pre-close technique.
3. Pro-glide percutaneous suture closure left common femoral artery puncture site.
4. Supervision and interpretation.
Surgeon: Nicolas
Client Support Associate: DONA Calero, required for all aspects of procedure including assistance with traction/countertraction, device delivery and wire management.
Complications: None
Anesthesia: General
Fluoroscopy:
Time: 20.9 minutes
Dose: 432 mGy
DAP: 112.35
Indications for procedure:
Abdominal aortic aneurysm. Possibly symptomatic with abdominal pain. Risk/benefits/alternatives of endovascular repair fully discussed with the patient, as well as his POA his son. Patient's son understood all wished for us to proceed with
repair.
Description of procedure:
Patient was identified brought to the operating room placed on the table in supine position. After the adequate administration of anesthesia and perioperative antibiotics he was prepped and draped in the standard surgical fashion. A standard
preoperative timeout was undertaken and everybody was in agreement the plan. Bilateral common femoral artery access was obtained under direct duplex ultrasound guidance. 6 Scottish sheath was placed over 0.035 inch wire in the right groin. In the
left groin, 7 Scottish sheath was placed. A small 1 cm incision was made around the right sided sheath access, and blunt dissection was undertaken with hemostats to facilitate percutaneous suture delivery. Next, using the ProGlide suture system,
percutaneous sutures were deployed at the 10:00 and 2 o'clock position on the right side in the standard fashion. Suture strands were tagged outside the skin. I exchanged for a short 11 Scottish sheath in that right groin access over the wire.
At this point, from the left-sided 7 Scottish access, I did hand-injection aortography in the SAMUEL projection to identify the ROSE. The ROSE appeared to be slightly over [address] scan. Therefore I felt it may be worth trying to coil embolized. Using
a couple different catheters, was able to engage it finally with a flopping on hydrophilic wire. I was finally able to get the K2 catheter to get into it. However the vessel was about 3 mm and therefore I needed a 3 or 4 mm coil. The only ones we
had were microcoils. Therefore I attempted to place the microcatheter through the K2 catheter. Despite multiple attempts it kept popping out. I could not get stable catheter into the ROSE in order to coil. At this point, I felt that the added
time and fluoroscopy was not worth as the ROSE emanated from where the aorta tapered and likely the graft would be opposed to the origin of it. Therefore I abandoned attempt at coil embolization at this point.
Next using a KMP catheter, I guided wire from right groin access into the supraceliac aorta. From the left side, I advanced a snare catheter and snare into the distal aorta positioned just proximal to the bifurcation. The right sided wire was
exchanged for a stiff Lunderquist wire. The patient was given an appropriate dose of heparin. Next I exchanged my right-sided 11 Scottish sheath for an Endologix 17 Scottish sheath which was advanced into the aorta under fluoroscopy.
I now loaded the [id number] bifurcated Endologix AFX graft ([id number] 20-40) onto the stiff wire (right sided access) and then advance the affixed contralateral wire through the AFX introducer sheath. The contralateral wire was snared through
the left sided access and brought out through the contralateral left side. The AFX 2 bifurcated device was transferred into the AFX introducer sheath and advanced under fluoroscopy until the distal limbs were above the aortic bifurcation thereby
releasing the limbs of the graft. Any wire wrap had been relieved. With concomitant downward tension on the left sided through and through wire and the right sided main body, the bifurcated graft was seated on the aortic bifurcation. I then
pulled the rib cord to deploy the main body of the endograft. The yellow covering was then pulled over the left wire (contralateral wire) thereby deploying the contralateral iliac limb. Once this was done, a pigtail catheter was advanced over the
left sided contralateral wire access and forward pressure was applied while pulling the wire back to release the wire lock. The pigtail catheter was then advanced into the juxtarenal aorta.
Next the ipsilateral limb was deployed by pinning the inner core and retracting the introducer sheath. Next, the delivery mechanism was withdrawn from the sheath and the introducer was then advanced. The sheath and introducer were then carefully
advanced into the juxtarenal aorta. Next, we advanced the proximal aortic extension which had suprarenal bare-metal stents (A28-28/C95-020 V). Once this was positioned in the vicinity of the renal arteries, power injection aortography was
obtained. However our power injector failed to work. So I had to perform hand injections forcefully through the pigtail catheter. Bilateral renal arteries were marked on the screen. We marked the inferior most position of both these renal
arteries. Intentionally, the graft was initially unsheathed slightly high and then carefully pulled down so that it was positioned just inferior to left renal artery (lower renal artery). Injection through the pigtail demonstrated good positioning
and stable filling of renal arteries. Deployment was completed, and delivery mechanism was removed from the sheath. Coda balloon was then inserted and distal main overlap was balloon molded. Completion angiography now demonstrated no filling in
the aneurysm sac. Excellent filling of both renal arteries and bilateral iliac systems was noted (good distal seals were noted). No evidence of any endoleak was noted. At this point I was very satisfied.
Next, I removed the right sided 17 Scottish sheath while cinching down the percutaneous sutures. Once hemostasis was noted the wire was then withdrawn, the knot was tightened with a knot pusher. Hemostasis was confirmed. The knot was then locked
and the suture strands trimmed. On the left side, I exchanged the 7 Scottish sheath over a Storq wire for a Pro-glide percutaneous suture delivery device. Pro-glide percutaneous suture was not was then cinched down to the artery. Knot was pushed
down with a knot pusher. The knot was locked. Hemostasis was fully achieved bilateral groins with good femoral pulses bilaterally. The small right groin skin incisions was then closed with 4-0 Monocryl subcuticular stitch and Dermabond was
applied. Dressing applied to left groin puncture site. Patient tolerated procedure well. He had dopplerable DP and PT signals bilaterally upon completion.
[2024-06-29 14:07] LABS: Blood Urea Nitrogen 23 mg/dl (9-20); Calcium 8.5 mg/dl (8.4-10.2); Carbon Dioxide 24 mmol/L (22-30); Chloride 109 mmol/L (98-107); Estimated Creatinine Clearance 80 ml/min; Glucose 103 mg/dl (70-99); Potassium 3.9 mmol/L (3.5-5.1); Sodium 141 mmol/L (135-145); eGFR > 60.00
[2024-06-29] MEDS: NSS 1000 IV (14:31)
--- NOTE | 2024-06-29 15:17 | SUR.PHASEI ---
Patient transferred to ICU, phone and bedside report to Josef. Groin checks and vascular checks on arrival to ICU. Patient stable and comfortable. Amanda Matos RN BSN.
--- NOTE | 2024-06-29 15:21 | W.PN.UPDATE ---
Update Note
Progress Note Update
Patient seen in 3360 post EVAR. no complaints of CP, SOB. Apaced on tele. BP stable. will continue to monitor.
[2024-06-29] MEDS: COMTAN PO (15:50)
[2024-06-29] MEDS: SINEMET 25-100 PO (15:50)
--- NOTE | 2024-06-29 15:56 | CON.INTV ---
Consultation
Consultation Request
Date/Time Consultation Requested: 06/29/2024
Date/Time Consultation Performed: 06/29/2024
Requesting Provider: Dr. Valenzuela
Performing Provider: Dr. Chi Johnston
Reason for Consultation: Status post endovascular repair of abdominal aortic aneurysm
Medical History
-
History of Present Illness:
78-year-old man with history of atrial fibrillation on Coumadin, Parkinson disease, dementia, anxiety and depression presented with confusion initially on 06/21/2024. Incidental finding of infrarenal abdominal aortic aneurysm. Increasing size from
2013.
Vascular surgery consulted. He was deemed candidate for endovascular repair. Surgery underwent on 06/29/2024. Currently in the critical care unit for postoperative care.
Patient denies any particular complaints.
Hemodynamically stable.
Past Medical History
Past Medical History: Other (See assessment and plan)
Family History
Family History: Unable to Obtain (Dementia)
Allergies / Home Medications
Allergies
Allergy/AdvReac Type Severity Reaction Status Date / Time
oxycodone HCl [From Percocet] Allergy vomitting Verified 06/06/23 01:18
Home Medications
�Medication �Instructions �Recorded �Confirmed �Last Taken �Type
citalopram 20 mg tablet 20 mg PO QPM Depression 07/02/14 06/21/24 07/01/14 History
cyanocobalamin (vitamin B-12) 500 1,000 mcg PO DAILY Supplement 07/02/14 06/21/24 07/02/14 History
mcg tablet (Vitamin B-12)
acetaminophen 325 mg tablet 650 mg PO BIDPRN PRN mild pain ##0 10/16/16 06/21/24 Unknown History
carbidopa 37.5 mg-levodopa 150 1 tab PO 5/D Parkinsons ##0 10/16/16 06/21/24 Unknown History
mg-entacapone 200 mg tablet
carvedilol 3.125 mg tablet 3.125 mg PO QPM Heart 10/16/16 06/21/24 Unknown History
Disease/Condition
clonazepam 0.5 mg tablet 0.5 mg PO TID@0800,1400,1800 ##0 10/16/16 06/21/24 Unknown History
pantoprazole 20 mg tablet,delayed 20 mg PO DAILY Gastrointestinal 10/16/16 06/21/24 Unknown History
release Issue ##0
polyethylene glycol 3350 17 gram 17 g PO DAILY constipation 10/16/16 06/21/24 Unknown History
oral powder packet
rotigotine 6 mg/24 hour 6 mg transdermal DAILY Parkinsons 10/16/16 06/21/24 Unknown History
transdermal 24 hour patch (Neupro) ##0
sennosides 8.6 mg tablet (senna) 8.6 mg PO QPM Constipation ##0 10/16/16 06/21/24 Unknown History
solifenacin 5 mg tablet 5 mg PO QPM Urinary Issue 10/16/16 06/21/24 Unknown History
warfarin 5 mg tablet (Jantoven) 5 mg PO .4X WEEKLY@1999 Blood Clot 10/16/16 06/21/24 Unknown History
Prevention/Tx
atorvastatin 10 mg tablet (Lipitor) 10 mg PO QPM High Cholesterol 10/29/19 06/21/24 Unknown History
melatonin 3 mg capsule 9 mg PO HS Sleep 10/29/19 06/21/24 Unknown History
bisacodyl 10 mg rectal suppository 10 mg OK DAILYPRN PRN constipation 06/06/23 06/21/24 Unknown History
(Dulcolax (bisacodyl))
carbidopa 25 mg-levodopa 100 mg 1 tab PO TID@0800,1400,1800 06/06/23 06/21/24 Unknown History
tablet (Sinemet) parkinsons
donepezil 10 mg tablet (Aricept) 10 mg PO QPM dementia 06/06/23 06/21/24 Unknown History
acetaminophen 325 mg tablet 650 mg PO BID Pain 06/21/24 06/21/24 Unknown History
cranberry 500 mg capsule 500 mg PO DAILY Supplement 06/21/24 06/21/24 Unknown History
dextran 70-hypromellose 0.1 %-0.3 1 drp BOTH EYES BID dry eyes 06/21/24 06/21/24 Unknown History
% eye drops (Artificial Tears
(dextran 70-hypromellose))
memantine 10 mg tablet 10 mg PO BID dementia 06/21/24 06/21/24 Unknown History
therapeutic multivitamin 1 tab PO DAILY Supplement 06/21/24 06/21/24 Unknown History
warfarin 4 mg tablet 4 mg PO .3X WEEKLY@2000 Blood Clot 06/21/24 06/21/24 Unknown History
Prevention/Tx
Review of Systems
-
Unable to Obtain full review of systems at this time due to: Dementia
Vitals / Labs / Diagnostic Testing
Vital Signs
Temp Pulse Resp BP Pulse Ox
97.3 F 70 17 115/74 93
06/29/24 14:52 06/29/24 14:45 06/29/24 14:45 06/29/24 14:45 06/29/24 14:45
Lab Data
06/29/24 13:39
06/29/24 13:39
Laboratory Results
06/29/24
06:15
PT 15.6 H
INR 1.19
APTT 31.8
Diagnostic Testing:
Physical Exam
-
HEENT: Normocephalic
Cardiovascular: S1/S2
Respiratory: Non-Labored Respirations
GI: Soft and Non Distended
Neurology: Awake, Alert, Tremors and Other (Follows commands)
Skin: Warm and Other (Groin punctures without hematoma)
General: Comfortable
Assessment
-
Status post Endovascular repair of abdominal aortic aneurysm with aortobiiliac endograft with proximal suprarenal endograft extension 06/29/2024 Dr. Valenzuela
Abdominal aortic aneurysm.
CT abdomen/pelvis angio w/wo 06/24/2024: Reviewed.
Infrarenal abdominal aortic aneurysm measuring approximately 6.2 x 5.5 cm. There is mild atherosclerotic calcifications of the aorta with resultant moderate stenosis of the proximal celiac artery. There is no significant stenosis within the
bilateral iliac or visualized femoral arteries.
Mild/moderate colonic and rectal stool burden.
Conditions present prior admission:
Parkinson disease
Dementia
Paroxysmal atrial fibrillation on Coumadin
Hypertension
Hyperlipidemia
Type 2 diabetes
Sacral stage II chronic pressure ulcer
Anxiety/depression
Assessment and plan:
Postoperative surgical intensive care unit monitoring
Supplemental oxygen as needed
Incentive spirometry
Nebulizers if needed-currently not bronchospastic
Chest x-ray 06/21/2024 reviewed-clear lungs, no acute abnormalities.
Continue analgesia as necessary. Monitor mental status.
Neuro and vascular checks per protocol
Vascular surgery following-correspondence and operative notes reviewed.
Monitor blood pressure
Allow for mild permissive hypertension
Cardene drip if needed
Follow hemoglobin
Continue with medications for Parkinson's/dementia.
Follow blood sugars
Insulin supplementation as needed
Gentle IV fluid
Follow renal function and electrolyte
Advance diet as tolerated
Aspiration precautions
Increase activity reported
DVT prophylaxis-eventually to restart full anticoagulation for atrial fibrillation.
--- NOTE | 2024-06-29 15:58 | PTCARENOTE ---
pt received for pacu. groin and dp/pt pulses checked with pacu nurse. pulses by doppler. pt wakes to name states no to pain. drowsy. feet cool to touch. ivf running as ordered. david in place. bp elevated 170/80 vacular COIL FORMER notified
[2024-06-29] MEDS: CARDENE 200 IV (16:10)
--- NOTE | 2024-06-29 16:17 | PTCARENOTE ---
calista started for BP management.
[2024-06-29] MEDS: SENOKOT 8.6 MG PO (18:19)
[2024-06-29] MEDS: CELEXA 20 MG PO (18:19)
[2024-06-29] MEDS: VESICARE 5 MG PO (18:19)
[2024-06-29] MEDS: ARICEPT 10 MG PO (18:19)
[2024-06-29] MEDS: MELATONIN 9 MG PO (20:46)
[2024-06-29] MEDS: COREG 3.125 MG PO (20:46)
[2024-06-30] VITALS (11 sets, daily range): BP systolic 92–147; BP diastolic 56–82; PULSE 71; O2SAT 98; BMI 31.6
--- NOTE | 2024-06-30 | PTCARENOTE ---
no changes in assessment, cardene gtt titrated off, denies pain, neurovascular checks ongoing, call carrillo within reach
[2024-06-30 03:44] LABS: Hematocrit 38.5 % (39.0-52.0); Mean Corp Hgb Conc. 33.8 g/dL (33.0-37.0); Mean Corpuscular Hgb 30.2 pg (27.0-31.0); Mean Corpuscular Volume 89.5 fL (80.0-94.0); Mean Platelet Volume 9.2 fL (7.4-10.4); Platelet Count 167 10^3/uL (130-400); Red Cell Dist. Width 14.8 % (11.5-14.5); White Blood Cell Count 8.2 10^3/uL (4.8-10.8)
[2024-06-30 03:49] LABS: INR 1.22; PT 15.9 Sec (11.4-14.6)
--- NOTE | 2024-06-30 03:59 | PTCARENOTE ---
AM labs sent, no changes in assessment noted
[2024-06-30 04:02] LABS: Blood Urea Nitrogen 23 mg/dl (9-20); Calcium 8.6 mg/dl (8.4-10.2); Carbon Dioxide 23 mmol/L (22-30); Chloride 110 mmol/L (98-107); Estimated Creatinine Clearance 80 ml/min; Glucose 113 mg/dl (70-99); Potassium 4.4 mmol/L (3.5-5.1); Sodium 142 mmol/L (135-145); eGFR > 60.00
[2024-06-30] MEDS: MIRALAX 17 GRAMS PO (07:14)
[2024-06-30] MEDS: VITAMIN B-12 1000 MCG PO (07:14)
[2024-06-30] MEDS: COREG 3.125 MG PO ×2 (07:14→20:07)
[2024-06-30] MEDS: SINEMET 25-100 1.5 TABLET PO ×4 (07:14→20:10)
[2024-06-30] MEDS: COMTAN 200 MG PO ×4 (07:14→20:08)
[2024-06-30] MEDS: PROTONIX 20 MG PO (07:14)
[2024-06-30] MEDS: KLONOPIN 0.25 MG PO ×3 (07:14→17:43)
--- NOTE | 2024-06-30 07:54 | W.PN.VS ---
Addendum entered and electronically signed by Otto Valenzuela MD 06/30/24 10:14:
Seen and examined this a.m. with [employer] Rajendra. Agree with findings as noted below. No events. Abdomen soft. Nondistended, nontender. Groins flat bilaterally. Small incision right groin, puncture site left groin both flat. No hematomas. Feet are
pink with dopplerable PT signals bilaterally. Plan/as discussed and noted below.
Original Note:
Today's Communication / Plan
-
Patient seen and examined at bedside with Dr. Otto Valenzuela, below plan reviewed with attending.
Assessment/Plan
-
Assessment: 78-year-old male POD #1 EVAR
Plan:
Discontinue arterial line
Discontinue IV fluids
Discontinue Smiley catheter
Can get OOB to chair, or activity as tolerated at baseline
Can restart Coumadin and Lovenox bridge from a vascular surgery perspective
From a vascular surgical perspective he can be downgraded to telemetry later this afternoon if vital signs remained stable, pulse checks are unchanged, and he continues to tolerate p.o. diet
Subjective Data
-
Date of Service: June 30, 2024
Patient seen and evaluated at bedside, offers no complaints. Subjective data limited due to patient's history of dementia, however he did state no to pain, nausea, and vomiting.
Objective Data
-
Vital Signs
Temp Pulse Resp BP Pulse Ox
99.2 F 70 17 150/61 97
06/30/24 07:51 06/30/24 07:14 06/30/24 06:00 06/30/24 07:14 06/30/24 06:00
Intake and Output
06/29/24 06/30/24 07/01/24
06:59 06:59 06:59
Intake Total 660 / 660 1092.5 / 1092.5
Output Total 1025 / 1025
Balance 660 / 660 67.5 / 67.5
Intake:
Oral fluids 660 / 660 200 / 200
IV fluids (Total) 892.5 / 892.5
NS 50 / 50
Nss 1,000 ml @ 80 mls/hr IV . 780 / 780
[id number] MICHAEL Rx#:[id number]
cardene 62.5 / 62.5
Output:
Urine, Smiley 1025 / 1025
Other:
How many times incontinent 3
MODERATE amount urine
How many times incontinent 1
SATURATED amount urine
Lab Results
06/30/24 03:28
06/30/24 03:28
Calcium 8.6 mg/dl (8.4-10.2) 06/30/24 03:28
Total Bilirubin 0.7 mg/dl (0.2-1.3) 06/21/24 16:47
AST 43 U/L (17-59) 06/21/24 16:47
ALT < 10 U/L (0-50) 06/21/24 16:47
Alkaline Phosphatase 70 U/L (38-126) 06/21/24 16:47
Total Protein 6.9 g/dl (6.3-8.2) 06/21/24 16:47
Albumin 4.0 g/dl (3.5-5.0) 06/21/24 16:47
Physical Exam
-
No apparent distress resting bed comfortably, awake
No tachycardia
No dyspnea on room air
ABD nondistended, nontender
Bilateral groin puncture site CDI, no evidence of hematoma, Exofin glue intact
Bilateral DP/PT by Doppler
Smiley draining clear yellow urine
--- NOTE | 2024-06-30 08:34 | PTOTSP ---
Reviewed chart and noted pt wnt to OR yesterday and to ICU post-op. Will need new orders for PT and OT when stable to begin activity.
--- NOTE | 2024-06-30 08:37 | W.PN.CARDCBS ---
Today's Communication / Plan
-
Overall doing well status post EVAR
Restart Coumadin. He does not need bridging as outpatient.
Continue Coreg. Would avoid overtreating blood pressure with history of orthostasis
Continue treatment for Parkinson's.
Okay for telemetry.
Impression / Plan
-
Primary Transportation Maintenance Specialist: Dr. Keen
Assessment:
Presentation with altered mental status/confusion
TME, concern for polypharmacy
Abd pain
infrarenal AAA with progression in size, s/p EVAR 06/29/24
Parkinson's disease
dementia
aortic root dilatation
PAF
Chronic OAC with coumadin, managed by [facility]
SSS s/p medtronic PPM
HTN
HLD
GERD
Anxiety/depression
ECHO 11/2020: EF 55 to 60%, moderate concentric LVH, aortic sclerosis, mild AR, trace TR, PAP 25 mmHg, mildly dilated aortic root with sinus of Valsalva measuring 3.9 cm
ECHO 08/2022: EF 55 to 60%, LVH, aortic sclerosis, mild AR, mild TR, mild WA, root measured as 3.6 cm
Echo 06/28/2024: EF 60 to 65%, mild LVH, mildly enlarged RV size, pacer wire seen in RV, MAC, aortic sclerosis, trace AR, trace TR, PAP 15 to 20 mmHg, dilated aortic root, top normal ascending aorta, sinus of Valsalva measuring 4.4 cm
Plan:
-Overall doing well status post EVAR. Okay to resume Coumadin today with no bridge.
-Continue Coreg and Sinemet.
-Remains a paced on telemetry.
-Watch for orthostasis. Would not overtreat blood pressure
-follow mental status post operatively, initially presented with confusion/TME
-d/w nursing
Progress Note - Transportation Maintenance Specialist
Subjective
Date of Service: June 30, 2024
Awake and denies chest pains or shortness of breath.
Objective
Labs:
06/30/24 03:28
06/30/24 03:28
Labs
Hgb 13.0 g/dL (13.0-18.0) 06/30/24 03:28
Hct 38.5 % (39.0-52.0) L 06/30/24 03:28
Plt Count 167 10^3/uL (130-400) 06/30/24 03:28
PT 15.9 Sec (11.4-14.6) H 06/30/24 03:28
INR 1.22 06/30/24 03:28
APTT 31.8 Sec (23.4-35.0) 06/29/24 06:15
Sodium 142 mmol/L (135-145) 06/30/24 03:28
Potassium 4.4 mmol/L (3.5-5.1) 06/30/24 03:28
BUN 23 mg/dl (9-20) H 06/30/24 03:28
Creatinine 0.9 mg/dL (0.7-1.3) 06/30/24 03:28
Glucose 113 mg/dl (70-99) H 06/30/24 03:28
Vital Signs and I&O:
Vital Signs
Temp Pulse Resp BP Pulse Ox
99.2 F 70 17 150/61 97
06/30/24 07:51 06/30/24 07:14 06/30/24 06:00 06/30/24 07:14 06/30/24 06:00
Vital Signs
Temp Pulse Resp BP Pulse Ox
99.2 F 70 17 150/61 97
06/30/24 07:51 06/30/24 07:14 06/30/24 06:00 06/30/24 07:14 06/30/24 06:00
Intake & Output
06/28/24 06/29/24 06/30/24 07/01/24
06:59 06:59 06:59 06:59
Intake Total 660 / 660 660 / 660 1092.5 / 1092.5
Output Total 1025 / 1025
Balance 660 / 660 660 / 660 67.5 / 67.5
Physical Exam
Physical Exam
GEN: No distress, awake, alert
HEENT: supple, anicteric, mmm
LUNGS: CTA, no wheezes/rales
CV: Reg, S1/S2, 1/6 syst LSB, no gallop
ABD: soft, BS+, NT/ND
EXT: No edema
NEURO: parkinsonian
SKIN: No rash
--- NOTE | 2024-06-30 08:47 | W.PN.HOSP.TC ---
Addendum entered and electronically signed by Aleena Engel MD 06/30/24 10:34:
Patient postoperative day 1. Seen in ICU. Doing well status post EVAR 06/29/2024
I personally performed a history and physical exam of the patient and discussed management with the resident. I reviewed the resident's note and agree with the documented findings and plan of care HPI/CC except for changes in my documentation.
CT angiogram-infrarenal AAA 6.20 5.5 cm.� Mild atherosclerotic calcifications of the aorta with resultant moderate stenosis of the proximal celiac artery.� No significant stenosis within bilateral iliac or visualized femoral artery.� Moderate
colonic and rectal stool burden.
EKG-incomplete right bundle branch block.� Nonspecific ST-T changes.
Echo 06/28/24-Normal LV size and function. Mild LVH. EF 60 to 65%. Mildly enlarged RV size. No MS. Trace TR. Trace AI. Pulmonary pressure 15 to 20 mmHg. Dilated aortic root. Ascending aorta 3.9 cm.
CVS: S1-S2 normal
Chest: CTA B/L
Abdomen: Soft, no suprapubic tenderness, Bowel sounds present
Extremities: No edema, normal pulses
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
B/L Inguinal area stable . No bleeding
# Infrarenal AAA previously 3.6 Endometrin 2013 now 6.2 cm
S/P EVAR 06/29/24
# Acute toxic metabolic encephalopathy
CT head without acute changes
Improved suspect polypharmacy and progressive dementia
B12 and TSH unremarkable
RPR neg
B1 normal
# Lower abdominal discomfort-possibly secondary to constipation. Better
# Type 2 diabetes-diet controlled
# Paroxysmal atrial fibrillation-on Coumadin as OP
Continue Coreg.�
Anticoagulation can be started per vascular. Per discussion with cardiology patient does not need bridging with Lovenox
# History pacemaker
# Hypertension-continue Coreg
# Hyperlipidemia-continue atorvastatin
# Parkinson disease with dementia-continue carbidopa levodopa QID , entacapone 200 mg 4 times a day, Rotigotine decreased to 4 mg daily. continue, Donepezil.Holding Namenda changes were discussed with .
# History of stroke-restart anticoagulation . Per discussion with cardiology patient does not need bridging with Lovenox.
# GERD-continue PPI
# History of dysphagia-speech eval
# Anxiety and depression-continue Celexa and Klonopin
# Ambulatory dysfunction/DJD/cervical stenosis
# DVT prophylaxis-Coumadin restarted. SCDS added
# Full code
D/w Vascular and cards
D/W RN
D/W Case management
D/w PT OT and reconsulted
Pt has been a resident at [facility] since 2014 per son
D/W Son and updated.
Part of this note was created using voice recognition system. Occasional wrong word or��sound alike� substitutions may have inadvertently occurred due to the inherent limitations of voice recognition software. If noted kindly bring it to my
attention for correction.
Original Note:
Today's Communication/Plan
-
-Restart Coumadin
-Discontinue Smiley
-Discontinue nicardipine for history of orthostasis.
-OOB to chair
-Transfer to telemetry
-Restart Coreg
Assessment / Plan
Assessment / Plan
Impression: 78-year-old male with PMH of Parkinson's disease, A-fib on AC, who presented to ED on 06/21 with worsening confusion and weakness from [facility] where he has been living for 10 years. He was recently started on Namenda on 05/31
otherwise no medication changes.
Assessment/plan:
#Infrarenal AAA
-Incidental finding 6.2 cm
-S/p EVAR POD #1
-Restart Coumadin, does not need bridging per cardiology.
-Discontinue Smiley
-Discontinue nicardipine for history of orthostasis.
-OOB to chair
-Transfer to telemetry
-Restart Coreg
-Cardiology appreciated
# Acute toxic metabolic encephalopathy - Improved
-Patient alert and oriented, improved mental status baseline unknown.
-Suspected etiology include polypharmacy vs progressive dementia.
-CT head with no acute abnormalities, CXR unremarkable, no FND, no signs of acute infection.
-B12, TSH unremarkable.
-RPR negative.
-Discussed with neuro as patient have some waxing and waning mentation changes. Discussed with son/family at bedside that slow stepwise medication change is warranted if indicated as patient on complex meds.
#Constipation
-Bilateral lower abdominal discomfort that improves with defecation.
-CT abdomen/pelvic 06/24 reports moderate fecal burden.
-Continue bowel regimen.
#Type 2 diabetes mellitus
-Diet controlled
#Stage 2 sacral/groin pressure injury
-Blanchable.
-Pressure redistribution.
#Paroxysmal A-fib
-Patient remains subtherapeutic for last 3 days, will require 48-72 hours to be therapeutic and by that time patient will needed to be normalized for surgery on .
-Continue coreg for rate control
#Essential hypertension
-Continue carvedilol.
#Hyperlipidemia
-Continue atorvastatin.
#Parkinson disease with dementia
-Medication doses clarified.
-Carbidopa�levodopa 1.5 tabs 4 times daily, entacapone 200 mg 4 times daily, Neupro 4 mg patch once daily.
-Continue donepezil 10 mg daily.
-Stop Namenda.
-Appreciate neurology.
#Anxiety/Depression
-Continue citalopram and clonazepam
DVT PPx: Lovenox
CODE STATUS: Full code
Data:
CT abdomen/pelvis angio w/wo 06/24/2024:
Infrarenal abdominal aortic aneurysm measuring approximately 6.2 x 5.5 cm. There is mild atherosclerotic calcifications of the aorta with resultant moderate stenosis of the proximal celiac artery. There is no significant stenosis within the
bilateral iliac or visualized femoral arteries.
Mild/moderate colonic and rectal stool burden.
CT abdomen/pelvis without IV or oral contrast 06/21/2024:
1. No significant acute abnormality identified in the abdomen or pelvis, within the limits of unenhanced CT, as described above.
2. Fusiform infrarenal abdominal aortic aneurysm measures up to 6.2 cm in AP dimension (previously 3.6 cm in 2013).
Anticipated Discharge: > 48 hours
Subjective/Interval History
-
Date of Service: June 30, 2024
Patient seen and examined, lying comfortably on his bed. He denies chest pain, abdominal pain, palpitations. Overall, he is doing well s/p EVAR 06/29 and the access site does not have any erythema or warmth. He is on Smiley and diuresing.
Objective Data
-
Labs:
Laboratory Results
06/30/24
03:28
WBC 8.2
Hgb 13.0
Hct 38.5 L
Plt Count 167
PT 15.9 H
INR 1.22
Sodium 142
Potassium 4.4
Chloride 110 H
Carbon Dioxide 23
BUN 23 H
Creatinine 0.9
Glucose 113 H
Calcium 8.6
Vital Signs:
Vital Signs
Temp Pulse Resp BP Pulse Ox
99.2 F 70 17 150/61 97
06/30/24 07:51 06/30/24 07:14 06/30/24 06:00 06/30/24 07:14 06/30/24 06:00
I&O
06/29/24 06/30/24 07/01/24
06:59 06:59 06:59
Intake Total 660 / 660 1092.5 / 1092.5
Output Total 1025 / 1025
Balance 660 / 660 67.5 / 67.5
Review of Systems
-
History Source: Patient
All other systems: Not reviewed unless documented
Constitutional: Reports No Symptoms; Denies Fever or Fatigue
Respiratory: Reports No Symptoms; Denies Cough, Trouble Breathing or Wheezing
Cardiac: Reports No Symptoms; Denies Chest Pain or Palpitations
Abdomen/GI: Reports Other (b/l lower abd discomfort relieved with defecation. ); Denies Abdominal Pain, Nausea, Vomiting or Diarrhea
Genitourinary: Reports No Symptoms
Skin: Reports No Symptoms
Neuro: Reports Tremors (Parkinson dz); Denies Dizzy or Headache
Physical Exam
-
General: No Apparent Distress and Comfortable
Respiratory: Clear to Auscultation; Negative Rales or Crackles
Cardiac: Regular Rhythm and S1/S2
GI: Soft, Nontender and Distended
Musculoskeletal: No Clubbing
Skin: Warm
Neuro: Awake, Alert and No Motor Deficits
Psych: Calm
Data Reviewed
-
Diagnostic Radiology: Image personally visualized and interpreted, Report Reviewed by me and Discussed with Physician
CT Scan: Image personally visualized and interpreted, Report Reviewed by me and Discussed with Physician
Labs: Labs Reviewed by me and Discussed with Physician
Old Records: Reviewed
--- NOTE | 2024-06-30 08:51 | PTCARENOTE ---
pt wakes to name states no to pain. slow to respond. groin sites c/d/i no hematoma noted. bilat DP and PT pulses by doppler. david in place ying care done. pt placed on room air sat 94%
[2024-06-30] MEDS: NEUPRO 4 MG TRANSDERM (09:27)
--- NOTE | 2024-06-30 10:12 | CM ---
Addendum entered by Jere Ravi 06/30/24 14:44:
will arrange transportation at discharge. PMNC completed and placed on chart.
Original Note:
CM following re: discharge planning.
Reviewed pt's chart, met with pt and spoke to pt's son Parveen VARELA over the phone.
Pt is POD #1 s/p EVAR, continue supportive care.
According to pt will be ready for discharge tomorrow. IMM reviewed with pt's son Parveen, placed on chart, copy left with the pt
Pt is a LTC resident at [facility] that is a part of [facility]. CM spoke to [facility] liaison and she confirmed that pt is accepted for admission when medically stable. Liaison Cheryl requested pt's clinical be faxed to [phone].
COVID 19 test requested on the day of discharge. MD is aware
[facility] nursing report: [phone]
Discharge instructions with COVID test result fax: [phone]
D/C plan: return back to [facility] tomorrow 07/01/24. Pt will need ambulance transport.
CM will follow to assist pt with discharge to [facility] tomorrow.
--- NOTE | 2024-06-30 10:47 | W.PN.INTV ---
Today's Communication / Plan
Recommendations
Continue postoperative care
Restart anticoagulation
Monitor for bleeding
Increase activity as able
Transferred to telemetry
Sign off
Assessment
-
Status post Endovascular repair of abdominal aortic aneurysm with aortobiiliac endograft with proximal suprarenal endograft extension 06/29/2024 Dr. Valenzuela
Abdominal aortic aneurysm.
CT abdomen/pelvis angio w/wo 06/24/2024: Reviewed.
Infrarenal abdominal aortic aneurysm measuring approximately 6.2 x 5.5 cm. There is mild atherosclerotic calcifications of the aorta with resultant moderate stenosis of the proximal celiac artery. There is no significant stenosis within the
bilateral iliac or visualized femoral arteries.
Mild/moderate colonic and rectal stool burden.
Conditions present prior admission:
Parkinson disease
Dementia
Paroxysmal atrial fibrillation on Coumadin
Hypertension
Hyperlipidemia
Type 2 diabetes
Sacral stage II chronic pressure ulcer
Anxiety/depression
Assessment and plan:
Postoperative day 1
Neurologically and hemodynamically stable
Denies any discomfort
No hematoma on groin punctures
Distal pulses present
-
Incentive spirometry encouraged
Increase activity as able
Chest x-ray 06/21/2024 reviewed-clear lungs, no acute abnormalities.
Continue analgesia as necessary. Monitor mental status.
Vascular surgery following-correspondence and operative notes reviewed.
Arterial line discontinue
Increase activity as able
Smiley catheter discontinued
To restart Coumadin/Lovenox bridge
Continue antihypertensive
Continue with medications for Parkinson's/dementia.
Follow blood sugars
Insulin supplementation as needed
Advance diet as tolerated
Aspiration precautions
Increase activity reported
DVT prophylaxis-to restart anticoagulation.
No additional recommendation from the critical care perspective.
Patient has been transferred to telemetry. Sign off
Subjective Dataa
Subjective Data
Date of Service:
Date of Service: June 30, 2024
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
Subjective:
Patient offers no specific complaints.
Denies shortness of breath or abdominal pain.
Hemodynamically stable overnight.
Review of Systems
General: Fever (n)
Cardiopulmonary: Dyspnea (n)
GI: Abdominal Pain (n) and Nausea (n)
Neuro: Headache (n)
Objective Data
Data Reviewed
Vital Signs / I&O / Oxygen:
Vital Signs
Temp Pulse Resp BP Pulse Ox
99.2 F 73 17 119/77 97
06/30/24 07:51 06/30/24 10:00 06/30/24 10:00 06/30/24 09:47 06/30/24 09:47
Intake and Output
06/29/24 06/30/24 07/01/24
06:59 06:59 06:59
Intake Total 660 / 660 1092.5 / 1092.5
Output Total 1025 / 1025
Balance 660 / 660 67.5 / 67.5
SaO2 97
Nasal Cannula flow liters per 2
minute
Physical Exam
General: Comfortable
HEENT: Normocephalic
Cardiovascular: S1-S2
Respiratory: Non-Labored Respirations
GI: Soft and Non Distended
Neurology: Awake, Alert and No Motor Deficits
Skin: Warm and Other (Groin punctures intact without hematoma)
Labs/Micro/Reports
Lab Data
06/30/24 03:28
06/30/24 03:28
Laboratory Results
06/30/24
03:28
PT 15.9 H
INR 1.22
--- NOTE | 2024-06-30 13:45 | PTCARENOTE ---
Report given to Danitza DELCID on . Patient placed on portable manager of business operations for transfer.
--- NOTE | 2024-06-30 14:31 | PTCARENOTE ---
Pt arrived to [facility] from ICU POD #1 from EVAR. Pt transferred from stretcher to bed. Pt AAOx2, confused with place. Pt b/l groin incisions MARLON, C/D/I. Pt oriented to call carrillo and room, bed locked and in lowest position, call carrillo within reach.
[2024-06-30] MEDS: VESICARE 5 MG PO (17:43)
[2024-06-30] MEDS: ARICEPT 10 MG PO (17:43)
[2024-06-30] MEDS: SENOKOT 8.6 MG PO (17:43)
[2024-06-30] MEDS: CELEXA 20 MG PO (17:43)
[2024-06-30] MEDS: COUMADIN 4 MG PO (20:25)
[2024-06-30] MEDS: MELATONIN 9 MG PO (21:33)
[2024-07-01 03:05] VITALS: BP 115/62
[2024-07-01 05:41] LABS: % Basophils 0.4 % (0-2); % Eosinophils 3.1 % (0-6); % Immature Granulocytes 0.4 % (0-0.5); % Lymphocytes 12.6 % (20.5-51.1); % Monocytes 8.4 % (1.7-9.3); % Neutrophils 75.1 % (42.2-75.2); Absolute Eosinophils 0.2 10^3/uL (0-0.7); Absolute Lymphocytes 0.9 10^3/uL (1.2-3.4); Absolute Monocytes 0.6 10^3/uL (0.1-0.6); Absolute Neutrophils 5.4 10^3/uL (1.4-6.5); Hematocrit 38.2 % (39.0-52.0); Hemoglobin 12.3 g/dL (13.0-18.0); Mean Corp Hgb Conc. 32.2 g/dL (33.0-37.0); Mean Corpuscular Hgb 30.3 pg (27.0-31.0); Mean Corpuscular Volume 94.1 fL (80.0-94.0); Mean Platelet Volume 9.3 fL (7.4-10.4); Nucleated Red Blood Cells % 0 % (-); Platelet Count 157 10^3/uL (130-400); Red Blood Cell Count 4.06 10^6/uL (4.70-6.10); Red Cell Dist. Width 14.9 % (11.5-14.5); White Blood Cell Count 7.1 10^3/uL (4.8-10.8)
[2024-07-01 06:13] LABS: ALT (SGPT) 13 U/L (0-50); AST (SGOT) 30 U/L (17-59); Albumin 3.3 g/dl (3.5-5.0); Alkaline Phosphatase 60 U/L (38-126); Blood Urea Nitrogen 25 mg/dl (9-20); Calcium 8.9 mg/dl (8.4-10.2); Carbon Dioxide 25 mmol/L (22-30); Chloride 107 mmol/L (98-107); Estimated Creatinine Clearance 72 ml/min; Glucose 111 mg/dl (70-99); Potassium 4.2 mmol/L (3.5-5.1); Sodium 140 mmol/L (135-145); Total Bilirubin 0.9 mg/dl (0.2-1.3); Total Protein 6.1 g/dl (6.3-8.2); eGFR > 60.00
[2024-07-01 07:25] VITALS: BP 129/65
[2024-07-01] MEDS: PROTONIX 20 MG PO (08:59)
[2024-07-01] MEDS: COREG 3.125 MG PO (08:59)
[2024-07-01] MEDS: MIRALAX PO (09:00)
[2024-07-01] MEDS: VITAMIN B-12 1000 MCG PO (09:00)
[2024-07-01] MEDS: KLONOPIN 0.25 MG PO (09:00)
[2024-07-01] MEDS: NEUPRO 4 MG TRANSDERM (09:00)
[2024-07-01] MEDS: SINEMET 25-100 1.5 TABLET PO (09:01)
[2024-07-01] MEDS: COMTAN 200 MG PO (09:19)
--- NOTE | 2024-07-01 10:34 | W.PN.HOSP.TC ---
Today's Communication/Plan
-
Discharge
Assessment / Plan
Assessment / Plan
Impression: 78-year-old male with PMH of Parkinson's disease, A-fib on AC, who presented to ED on 06/21 with worsening confusion and weakness from [facility] where he has been living for 10 years. He was recently started on Namenda on 05/31
otherwise no medication changes.
CT angiogram-infrarenal AAA 6.20 5.5 cm.� Mild atherosclerotic calcifications of the aorta with resultant moderate stenosis of the proximal celiac artery.� No significant stenosis within bilateral iliac or visualized femoral artery.� Moderate
colonic and rectal stool burden.
EKG-incomplete right bundle branch block.� Nonspecific ST-T changes.
Echo 06/28/24-Normal LV size and function. Mild LVH. EF 60 to 65%. Mildly enlarged RV size. No MS. Trace TR. Trace AI. Pulmonary pressure 15 to 20 mmHg. Dilated aortic root. Ascending aorta 3.9 cm.
CVS: S1-S2 normal
Chest: CTA B/L
Abdomen: Soft, no suprapubic tenderness, Bowel sounds present
Extremities: No edema, normal pulses
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
B/L Inguinal area stable . No bleeding
# Infrarenal AAA previously 3.6 Endometrin 2013 now 6.2 cm
S/P EVAR 06/29/24
Doing well
# Acute toxic metabolic encephalopathy
CT head without acute changes
Improved suspect polypharmacy and progressive dementia
B12 and TSH unremarkable
RPR neg
B1 normal
# Lower abdominal discomfort-possibly secondary to constipation. Better
# Type 2 diabetes-diet controlled
# Paroxysmal atrial fibrillation-on Coumadin as OP
Continue Coreg.�
Anticoagulation started per vascular. Per discussion with cardiology patient does not need bridging with Lovenox
Since INR subtherapeutic I have changed Coumadin dose to 5 mg daily from alternating between 4 and 5 mg which she was taking as outpatient. INR check in 2 days at long term
# History pacemaker
# Hypertension-continue Coreg
# Hyperlipidemia-continue atorvastatin
# Parkinson disease with dementia-continue carbidopa levodopa QID , entacapone 200 mg 4 times a day, Rotigotine decreased to 4 mg daily. continue, Donepezil.Holding Namenda changes were discussed with .
# History of stroke-restarted anticoagulation . Per discussion with cardiology patient does not need bridging with Lovenox.
# GERD-continue PPI
# History of dysphagia-speech eval
# Anxiety and depression-continue Celexa and Klonopin
# Ambulatory dysfunction/DJD/cervical stenosis
# DVT prophylaxis-Coumadin restarted. SCDS added
# Full code
D/W RN
D/W Case management
More than 30 minutes spent in discharge including
Final examination of the patient
Summarizing hospital stay
Instructions for continuing care to all relevant caregivers
Preparation of discharge records, prescriptions, and referral forms
Total time spent (in minutes): 32 min
Anticipated Discharge: Today
Subjective/Interval History
-
Date of Service: July 01, 2024
Objective Data
-
Labs:
Laboratory Results
07/01/24 07/01/24
05:17 10:24
WBC 7.1
Hgb 12.3 L
Hct 38.2 L
Plt Count 157
PT Pending
INR Pending
Sodium 140
Potassium 4.2
Chloride 107
Carbon Dioxide 25
BUN 25 H
Creatinine 1.0
Glucose 111 H
Calcium 8.9
Total Bilirubin 0.9
AST 30
ALT 13
Alkaline Phosphatase 60
Vital Signs:
Vital Signs
Temp Pulse Resp BP Pulse Ox
98.0 F 72 16 129/65 93
07/01/24 07:25 07/01/24 07:25 07/01/24 07:25 07/01/24 07:25 07/01/24 07:25
I&O
06/30/24 07/01/24 07/02/24
06:59 06:59 06:59
Intake Total 1092.5 / 1092.5 240 / 240
Output Total 1025 / 1025 480 / 480
Balance 67.5 / 67.5 -240 / -240
[2024-07-01 10:42] LABS: INR 1.25; PT 15.9 Sec (11.4-14.6)
--- NOTE | 2024-07-01 10:59 | W.PN.CARDCBS ---
Today's Communication / Plan
-
Resumed Coumadin 06/30 with no bridge. Warfarin dosing as per primary service
Continue current care
Impression / Plan
-
Primary Machine Hand: Dr. Keen
Assessment:
Presentation with altered mental status/confusion
TME, concern for polypharmacy
Abd pain
infrarenal AAA with progression in size, s/p EVAR 06/29/24
Parkinson's disease
dementia
aortic root dilatation
PAF
Chronic OAC with coumadin, managed by [facility]
SSS s/p medtronic PPM
HTN
HLD
GERD
Anxiety/depression
ECHO 11/2020: EF 55 to 60%, moderate concentric LVH, aortic sclerosis, mild AR, trace TR, PAP 25 mmHg, mildly dilated aortic root with sinus of Valsalva measuring 3.9 cm
ECHO 08/2022: EF 55 to 60%, LVH, aortic sclerosis, mild AR, mild TR, mild DE, root measured as 3.6 cm
Echo 06/28/2024: EF 60 to 65%, mild LVH, mildly enlarged RV size, pacer wire seen in RV, MAC, aortic sclerosis, trace AR, trace TR, PAP 15 to 20 mmHg, dilated aortic root, top normal ascending aorta, sinus of Valsalva measuring 4.4 cm
Plan:
-Overall doing well status post EVAR. Resumed Coumadin 06/30 with no bridge. Warfarin dosing as per primary service
-Continue Coreg and Sinemet.
-Remains a paced on telemetry.
-Watch for orthostasis. Would not overtreat blood pressure
-follow mental status post operatively, initially presented with confusion/TME
Not adding muchnew from cardiology standpoint, will sign off, please call if needed
Progress Note - Machine Hand
Subjective
Date of Service: July 01, 2024
no complaints
Objective
Labs:
07/01/24 05:17
07/01/24 05:17
Labs
Hgb 12.3 g/dL (13.0-18.0) L 07/01/24 05:17
Hct 38.2 % (39.0-52.0) L 07/01/24 05:17
Plt Count 157 10^3/uL (130-400) 07/01/24 05:17
PT 15.9 Sec (11.4-14.6) H 07/01/24 10:24
INR 1.25 07/01/24 10:24
APTT 31.8 Sec (23.4-35.0) 06/29/24 06:15
Sodium 140 mmol/L (135-145) 07/01/24 05:17
Potassium 4.2 mmol/L (3.5-5.1) 07/01/24 05:17
BUN 25 mg/dl (9-20) H 07/01/24 05:17
Creatinine 1.0 mg/dL (0.7-1.3) 07/01/24 05:17
Glucose 111 mg/dl (70-99) H 07/01/24 05:17
Vital Signs and I&O:
Vital Signs
Temp Pulse Resp BP Pulse Ox
98.0 F 72 16 129/65 93
07/01/24 07:25 07/01/24 07:25 07/01/24 07:25 07/01/24 07:25 07/01/24 07:25
Vital Signs
Temp Pulse Resp BP Pulse Ox
98.0 F 72 16 129/65 93
07/01/24 07:25 07/01/24 07:25 07/01/24 07:25 07/01/24 07:25 07/01/24 07:25
Intake & Output
06/29/24 06/30/24 07/01/24 07/02/24
06:59 06:59 06:59 06:59
Intake Total 660 / 660 1092.5 / 1092.5 240 / 240
Output Total 1025 / 1025 480 / 480
Balance 660 / 660 67.5 / 67.5 -240 / -240
Physical Exam
Physical Exam
GEN: No distress, awake, alert
HEENT: supple, anicteric, mmm
LUNGS: CTA, no wheezes/rales/rhonchi
CV: Reg, nl S1/S2, no S3 or S4, 1/6 syst LSB, no gallop
ABD: soft, BS+, NT/ND
EXT: Trace pre-tibial edema b/l
NEURO: parkinsonian
[2024-07-01 11:10] VITALS: BP 102/60
--- NOTE | 2024-07-01 11:15 | CM ---
Pt for discharge today
Spoke with Cheryl at [facility] - requested updates - sent in [facility] Port - Can accept
Covid - pending
Transport at 1 PM
Cheryl made aware of transport time
Called pts son Parveen to notify of transport time - LM on VM
Plan - return to the [facility] nursing report: [phone]
Discharge instructions with COVID test result fax: [phone]
[2024-07-01 11:34] LABS: COVID-19 Antigen Negative (Negative)
--- NOTE | 2024-07-01 15:50 | W.DS.TRANS ---
Addendum entered and electronically signed by Aleena Engel MD 07/01/24 15:53:
Dictation- [id number]
Original Note:
DC Summary - Tractor Operator Battery
-
Discharge Instructions:
Sleep Apnea Risk Intermediate
Discharge Diagnosis/Procedures Infrarenal AAA S/P EVAR 06/29/24
Acute TME
Diet-controlled type 2 diabetes mellitus
Paroxysmal A-fib
Essential hypertension
hyperlipidemia
Parkinson disease with dementia
GERD
Anxiety and depression
Ambulatory dysfunction.
Diet Regular
Activity No strenuous activity,With assistance
Driving Restrictions No driving
Bathing Restrictions OK to Shower
Blood Work INR 2 days / 07/03/24
Other Services PT,OT
Instructions:
Stand-Alone Forms: DC Instr - Vascular OR
Changes to Home Medications: Yes
Discharge Medications:
DC Medications w/original date entered in [employer]
citalopram 20 mg tablet 20 mg PO QPM Depression 07/02/14
cyanocobalamin (vitamin B-12) 500 mcg tablet (Vitamin B-12) 1,000 mcg PO DAILY Supplement 07/02/14
acetaminophen 325 mg tablet 650 mg PO BIDPRN PRN mild pain ##0 10/16/16
pantoprazole 20 mg tablet,delayed release 20 mg PO DAILY Gastrointestinal Issue ##0 10/16/16
polyethylene glycol 3350 17 gram oral powder packet 17 g PO DAILY constipation 10/16/16
sennosides 8.6 mg tablet (senna) 8.6 mg PO QPM Constipation ##0 10/16/16
solifenacin 5 mg tablet 5 mg PO QPM Urinary Issue 10/16/16
atorvastatin 10 mg tablet (Lipitor) 10 mg PO QPM High Cholesterol 10/29/19
melatonin 3 mg capsule 9 mg PO HS Sleep 10/29/19
bisacodyl 10 mg rectal suppository (Dulcolax (bisacodyl)) 10 mg MO DAILYPRN PRN constipation 06/06/23
donepezil 10 mg tablet (Aricept) 10 mg PO QPM dementia 06/06/23
acetaminophen 325 mg tablet 650 mg PO BID Pain 06/21/24
cranberry 500 mg capsule 500 mg PO DAILY Supplement 06/21/24
dextran 70-hypromellose 0.1 %-0.3 % eye drops (Artificial Tears (dextran 70-hypromellose)) 1 drp BOTH EYES BID dry eyes 06/21/24
therapeutic multivitamin 1 tab PO DAILY Supplement 06/21/24
carbidopa 25 mg-levodopa 100 mg tablet 1.5 tab PO QID@0800,1400,1800,2100 Neurological Condition 30 days #0 tabs 06/30/24
entacapone 200 mg tablet 200 mg PO 0800,1400,1800,2100 Neurological Condition 30 days #0 tabs 06/30/24
polyvinyl alcohol-povidone (PF) 1.4 %-0.6 % eye drops in a dropperette (Refresh Classic (PF)) 1 drp ophthalmic (eye) QIDPRN PRN Dry eye/erythema #30 ea 06/30/24
rotigotine 4 mg/24 hour transdermal 24 hour patch (Neupro) 4 mg transdermal DAILY Neurological Condition #0 ea 06/30/24
carvedilol 3.125 mg tablet 3.125 mg PO BID Heart Disease/Condition #0 tabs 07/01/24
clonazepam 0.25 mg disintegrating tablet 0.25 mg PO TID @ 0800,1200,1700 anxiety #6 tabs 07/01/24
warfarin 5 mg tablet (Jantoven) 5 mg PO DAILY@1800 Blood clot prevention/tx #0 tabs 07/01/24
Home Medication Changes
Sinement, entacapone , changed. Namenda stropped Coreg changed
Pending Results: No
== END 2024-07-01 13:38 | DRG 268 ==
LOC: 2 SOUTH 17:33
PROVIDERS: Hospitalist; Nurse Practitioner; Physician Assistant Medical; Student in an Organized Health Care Education/Training Program; ADMITTING PHYSICIAN Internal Medicine; ATTENDING PHYSICIAN Hospitalist; CONSULT PHYSICIAN Internal Medicine Cardiovascular Disease; CONSULT PHYSICIAN Internal Medicine Critical Care Medicine; CONSULT PHYSICIAN Psychiatry & Neurology Neurology; CONSULT PHYSICIAN Surgery Vascular Surgery; EMERGENCY PHYSICIAN Emergency Medicine; FAMILY PHYSICIAN Internal Medicine
PROC: 04V03DZ Restriction of Abdominal Aorta with Intraluminal Device, Percutaneous Approach (ICD-10-PCS; 2024-06-29)
DX: I71.43 Infrarenal abdominal aortic aneurysm, without rupture (principal); G92.8 Other toxic encephalopathy; F02.83 Dementia in other diseases classified elsewhere, unspecified severity, with mood disturbance; F02.84 Dementia in other diseases classified elsewhere, unspecified severity, with anxiety; E11.9 Type 2 diabetes mellitus without complications; I48.0 Paroxysmal atrial fibrillation; I10 Essential (primary) hypertension; E78.00 Pure hypercholesterolemia, unspecified; F32.A Depression, unspecified; G20.A1 Parkinson's disease without dyskinesia, without mention of fluctuations; K21.9 Gastro-esophageal reflux disease without esophagitis; K59.09 Other constipation; I45.10 Unspecified right bundle-branch block; T50.995A Adverse effect of other drugs, medicaments and biological substances, initial encounter; I70.0 Atherosclerosis of aorta; R79.1 Abnormal coagulation profile; I25.10 Atherosclerotic heart disease of native coronary artery without angina pectoris; L89.152 Pressure ulcer of sacral region, stage 2; M48.02 Spinal stenosis, cervical region; I49.5 Sick sinus syndrome; I70.8 Atherosclerosis of other arteries; M19.90 Unspecified osteoarthritis, unspecified site; Z95.0 Presence of cardiac pacemaker; Z11.52 Encounter for screening for COVID-19; Z79.01 Long term (current) use of anticoagulants; Z86.73 Personal history of transient ischemic attack (TIA), and cerebral infarction without residual deficits; Z79.84 Long term (current) use of oral hypoglycemic drugs
CPT/HCPCS: 34705; 34713; 70450; 71046; 74174; 74176; 80048; 80053; 81003; 81015; 82607; 84425; 84443; 85025; 85027; 85610; 85730; 86780; 86850; 86900; 86901; 87070; 87086; 87811; 93005; 93306; 97116; 97164; 97167; 97530; 97535; 99285; C1760; C1768; C1769; C1773; C1894; C2628; Q9950; Q9967

== ENCOUNTER 2024-07-28 17:37 | Emergency (ER) | payer OTHER, SELFPAY ==
[2024-07-28 18:06] VITALS: BP 122/77
--- NOTE | 2024-07-28 18:08 | ED.GENMED ---
ED Provider Triage
-
Patient seen by provider in Triage?: Seen in Triage
Attestation: A medical screening examination has been initiated by a qualified medical provider. Based on the assessment performed at this time, it has been determined that an emergent medical condition may exist and the patient has been informed
that further medical evaluation and possible additional diagnostic testing may be needed.
HPI: 78-year-old male from [facility] for episode of diarrhea this morning and is here now complaining of abdominal discomfort and bloating. Vomited once this a.m.
GENERAL: Alert , in no apparent distress
EYE: No visual abnormalities.
NECK: Trachea midline
ENT: No visible abnormalities.
LUNGS: No acute respiratory distress
NEUROLOGICAL: Alert and oriented
SKIN: Skin intact. No visible changes.
MUSCULOSKELETAL: Moving extremities normally
PSYCH: Normal and appropriate interaction.
This is a medical evaluation conducted in person to initiate diagnostic evaluation and provide initial therapeutics. Please see further documentation by the treating clinician.
History of Present Illness
General
Chief Complaint: Abdominal Symptoms
Time Seen by Provider: 07/28/24 22:50
Past History
Past History
ED Past Medical History: Arrthythmia (Atrial fibrillation), CVA, GERD, HTN, NIDDM (Diet-controlled), Psychiatric (Anxiety depression), Other (Parkinson dementia) and Other (Parkinson's disease, dementia, ambulatory dysfunction, degenerative joint
disease, cervical stenosis)
ED Past Surgical History: Cardiac (Pacemaker) and Other (hernia repair)
Social History
Tobacco: Non-smoker
Alcohol: None
Drug: None
Personal:
Living: assisted living ([facility])
Employment: Retired
Family History
Family History: Other (Reviewed and Noncontributory)
Course
Orders/Labs/Results
Orders:
Orders
07/28/24 18:09
Urinalysis Reflex To Culture Urgent
Date Specimen was Collected: 07/29/24
Time Specimen was Collected: 00:58
07/28/24 18:10
CT Abd/Pel (IV only)-[facility] only Urgent
Comment:
Reason For Exam: general abd pain, bloating, vomited once
07/28/24 18:15
Complete Blood Count/With Diff Urgent
Comprehensive Metabolic Panel Urgent
Lipase Urgent
07/28/24 23:04
0.9% Sodium Chloride 1000 ml [Nss] 1,000 ml IV BOLUS
07/28/24 23:20
Encourage PO Hydration-Treatme ONCE
Abnormal Lab Results
07/28/24 07/29/24
18:15 01:14
RBC 4.57 L 10^6/uL
(4.70-6.10)
RDW 15.2 H %
(11.5-14.5)
Abs Immat Gran (auto) 0.1 H 10^3/uL
(0-0.05)
Absolute Neuts (auto) 7.0 H 10^3/uL
(1.4-6.5)
Absolute Lymphs (auto) 0.8 L 10^3/uL
(1.2-3.4)
Immature Gran % 0.6 H %
(0-0.5)
Neutrophils % 82.7 H %
(42.2-75.2)
Lymphocytes % 9.3 L %
(20.5-51.1)
Carbon Dioxide 21 L mmol/L
(22-30)
BUN 47 H mg/dl
(9-20)
Glucose 129 H mg/dl
(70-99)
Urine Ketones Trace A
(Negative)
07/28/24 18:15
07/28/24 18:15
Vital Signs
Initial and Last Documented VS:
Initial Vital Signs
Temp Pulse Resp BP Pulse Ox
98.9 F 70 18 122/77 97
07/28/24 18:06 07/28/24 18:06 07/28/24 18:06 07/28/24 18:06 07/28/24 18:06
Last Documented Vital Signs
Temp Pulse Resp BP Pulse Ox
97.5 F 76 18 147/82 96
07/28/24 21:00 07/29/24 10:10 07/28/24 21:00 07/29/24 10:01 07/29/24 10:01
ED Attending Note
-
Portions of this chart may have been created with voice recognition software.� Occasional wrong word or��sound alike� substitutions may have occurred due to the inherent limitations of voice recognition software.
Discharge Plan
Departure
Patient Disposition: Intermediate/SNF
Date of Disposition: 07/29/24
Time of Disposition: 06:21
Patient with high blood pressure during this ER visit?: No
Condition: Good
Discharge Problem:
Acute gastroenteritis, Acute dehydration
Instructions: Viral gastroenteritis in adults, Clear Liquid Diet
Prescriptions:
No Action
citalopram 20 MG tablet
20 mg PO QPM
cyanocobalamin (vitamin B-12) [Vitamin B-12] 500 MCG tablet
1,000 mcg PO DAILY
sennosides [senna] 8.6 mg Tablet
8.6 mg PO QPM Qty: 0
acetaminophen 325 mg Tablet
650 mg PO BIDPRN PRN (Reason: mild pain) Qty: 0
polyethylene glycol 3350 17 GRAMS powder in packet
17 g PO DAILY
pantoprazole 20 mg Tablet,Delayed Release (Dr/Ec)
20 mg PO DAILY Qty: 0
solifenacin 5 MG tablet
5 mg PO QPM
atorvastatin [Lipitor] 10 MG tablet
10 mg PO QPM
melatonin 3 MG capsule
9 mg PO HS
donepezil [Aricept] 10 mg Tablet
10 mg PO QPM
bisacodyl [Dulcolax (bisacodyl)] 10 mg Suppository
10 mg [place] DAILYPRN PRN (Reason: constipation)
acetaminophen 325 mg Tablet
650 mg PO BID
therapeutic multivitamin Tablet
1 tab PO DAILY
cranberry 500 mg Capsule
500 mg PO DAILY
Artificial Tears([id number]) 0.1-0.3 % Drops
1 drp BOTH EYES BID
entacapone 200 mg Tablet
200 mg PO 0800,1400,1800,2100 30 Days Qty: 0 0RF
carbidopa-levodopa 25-100 mg Tablet
1.5 tab PO QID@0800,1400,1800,2100 30 Days Qty: 0 0RF
Refresh Classic (PF) 1.4-0.6 % Dropperette
1 drp ophthalmic (eye) QIDPRN PRN (Reason: Dry eye/erythema) Qty: 30 0RF
Neupro 4 mg/24 hour Patch 24 Hour
4 mg transdermal DAILY Qty: 0 0RF
warfarin [Jantoven] 5 mg Tablet
5 mg PO DAILY@1800 Qty: 0 0RF
carvedilol 3.125 MG tablet
3.125 mg PO BID Qty: 0 0RF
clonazepam 0.25 mg tablet,disintegrating
0.25 mg PO TID @ 0800,1200,1700 Qty: 6 0RF
Referrals:
Prashanth Rodríguez MD [Family Provider] - Next open appointment
Interventions
Interventions:
*Risk Screen - Suicide Last Done: 07/29/24 00:22
*General Assessment Last Done: 07/29/24 00:22
*Neglect/Abuse Screening Last Done: 07/29/24 00:22
ED- Fall Risk Assessment Last Done: 07/29/24 04:15
*ED COVID-19 Vaccine History Last Done: 07/29/24 00:22
*Nursing Disposition Last Done: 07/29/24 10:10
AL-Wxrobx-Pczeoqfsqu Assessment Last Done: 07/29/24 00:17
Discharge Date and Time
Discharge Date/Time: 07/29/24 10:15
Print Language: MARTINIQUAIS
[2024-07-28 19:16] LABS: % Basophils 0.1 % (0-2); % Immature Granulocytes 0.6 % (0-0.5); % Lymphocytes 9.3 % (20.5-51.1); % Monocytes 7.3 % (1.7-9.3); % Neutrophils 82.7 % (42.2-75.2); Absolute Immature Granulocytes 0.1 10^3/uL (0-0.05); Absolute Lymphocytes 0.8 10^3/uL (1.2-3.4); Absolute Monocytes 0.6 10^3/uL (0.1-0.6); Hematocrit 40.8 % (39.0-52.0); Hemoglobin 13.6 g/dL (13.0-18.0); Mean Corp Hgb Conc. 33.3 g/dL (33.0-37.0); Mean Corpuscular Hgb 29.8 pg (27.0-31.0); Mean Corpuscular Volume 89.3 fL (80.0-94.0); Nucleated Red Blood Cells % 0 % (-); Platelet Count 191 10^3/uL (130-400); Red Blood Cell Count 4.57 10^6/uL (4.70-6.10); Red Cell Dist. Width 15.2 % (11.5-14.5); White Blood Cell Count 8.5 10^3/uL (4.8-10.8)
[2024-07-28 19:37] LABS: ALT (SGPT) 19 U/L (0-50); AST (SGOT) 41 U/L (17-59); Albumin 3.9 g/dl (3.5-5.0); Alkaline Phosphatase 72 U/L (38-126); Blood Urea Nitrogen 47 mg/dl (9-20); Calcium 8.8 mg/dl (8.4-10.2); Carbon Dioxide 21 mmol/L (22-30); Chloride 107 mmol/L (98-107); Glucose 129 mg/dl (70-99); Potassium 3.8 mmol/L (3.5-5.1); Sodium 144 mmol/L (135-145); Total Bilirubin 0.4 mg/dl (0.2-1.3); Total Protein 6.9 g/dl (6.3-8.2); eGFR 56.23
[2024-07-28 20:22] LABS: Lipase 32 U/L (23-300)
[2024-07-28 21:00] VITALS: BP 131/75
--- NOTE | 2024-07-28 23:04 | ED.GENMED ---
History of Present Illness
<CATE Hannah - Last Filed: 07/29/24 05:52>
General
Chief Complaint: Abdominal Symptoms
Source: patient
Time Seen by Provider: 07/28/24 22:50
Nursing documentation reviewed up to this point in time: agreed with
History of Present Illness
History of Present Illness:
Pt is a 78 yo M with an extensive history who presents to the ED via EMS from [facility] with N/V/D x 1 day. Pt states that during breakfast he had diarrhea. He states he had 2 episodes of diarrhea today and a few episodes of emesis.
He also reports feeling nauseous. He denies receiving medication for symptom relief. Pt states that he has been able to keep water and fluids down and he last ate around lunch time. Pt denies fever, chills, abdominal pain, chest pain, headache,
dizziness, changes in appetite. He denies any known contacts having the same symptoms. Pt reports that he has not had an episode of emesis or diarrhea while being in the emergency department. Pt was seen by MULTIPLE TUBE WINDING MACHINE OPERATOR and staff at [facility] yesterday and
this afternoon for the same symptoms.
Past History
<CATE Hannah - Last Filed: 07/29/24 05:52>
Past History
ED Past Medical History: Arrthythmia (Atrial fibrillation), CVA, GERD, HTN, NIDDM (Diet-controlled), Psychiatric (Anxiety depression), Other (Parkinson dementia) and Other (Parkinson's disease, dementia, ambulatory dysfunction, degenerative joint
disease, cervical stenosis)
ED Past Surgical History: Cardiac (Pacemaker) and Other (hernia repair)
Social History
Tobacco: Non-smoker
Alcohol: None
Drug: None
Personal:
Living: assisted living ([facility])
Employment: Retired
Family History
Family History: Other (Reviewed and Noncontributory)
Review of Systems
<[facility] [place] - Last Filed: 07/29/24 05:52>
Review of Systems
Allergies reviewed?: Yes
Constitutional: Reports no symptoms
EENT: Reports no symptoms
Respiratory: Reports no symptoms
Cardiac: Reports no symptoms
ABD/GI: Reports nausea, vomiting, diarrhea and constipated
: Reports no symptoms
Musculoskeletal: Reports no symptoms
Skin: Reports no symptoms
Neurological: Reports no symptoms
Phy Exam
<Dora Campbell, [facility] - Last Filed: 07/29/24 05:52>
General Physical Exam
General Presentation: no apparent distress
General age: appears stated age
General Skin: warm and dry
General Habitus: normal
General Mental: alert
General Hydration: other (appears dry)
Cardiovascular Exam
Cardiovascular Exam: regular rate/rhythm
Pulmonary Exam
Pulmonary Exam: lungs clear
Gastrointestinal Exam
Gastrointestinal Exam: normal bowel sounds and distended
Palpation: generalized: Minimal tenderness (mild tenderness to palpation x4 quadrants)
Course
<Dora Campbell [facility] - Last Filed: 07/29/24 05:52>
Orders/Labs/Results
Orders:
Orders
07/28/24 18:09
Urinalysis Reflex To Culture Urgent
Date Specimen was Collected: 07/29/24
Time Specimen was Collected: 00:58
07/28/24 18:10
CT Abd/Pel (IV only)-[facility] only Urgent
Comment:
Reason For Exam: general abd pain, bloating, vomited once
07/28/24 18:15
Complete Blood Count/With Diff Urgent
Comprehensive Metabolic Panel Urgent
Lipase Urgent
07/28/24 23:04
0.9% Sodium Chloride 1000 ml [Nss] 1,000 ml IV BOLUS
12/06/24 23:20
Encourage PO Hydration-Treatme ONCE
Abnormal Lab Results
07/28/24 07/29/24
18:15 01:14
RBC 4.57 L 10^6/uL
(4.70-6.10)
RDW 15.2 H %
(11.5-14.5)
Abs Immat Gran (auto) 0.1 H 10^3/uL
(0-0.05)
Absolute Neuts (auto) 7.0 H 10^3/uL
(1.4-6.5)
Absolute Lymphs (auto) 0.8 L 10^3/uL
(1.2-3.4)
Immature Gran % 0.6 H %
(0-0.5)
Neutrophils % 82.7 H %
(42.2-75.2)
Lymphocytes % 9.3 L %
(20.5-51.1)
Carbon Dioxide 21 L mmol/L
(22-30)
BUN 47 H mg/dl
(9-20)
Glucose 129 H mg/dl
(70-99)
Urine Ketones Trace A
(Negative)
07/28/24 18:15
07/28/24 18:15
Vital Signs
Initial and Last Documented VS:
Initial Vital Signs
Temp Pulse Resp BP Pulse Ox
98.9 F 70 18 122/77 97
07/28/24 18:06 07/28/24 18:06 07/28/24 18:06 07/28/24 18:06 07/28/24 18:06
Last Documented Vital Signs
Temp Pulse Resp BP Pulse Ox
97.5 F 67 18 144/80 96
07/28/24 21:00 07/28/24 21:00 07/28/24 21:00 07/29/24 06:00 07/29/24 06:00
<Sara Muñoz, DO - Last Filed: 07/29/24 06:24>
Orders/Labs/Results
Orders:
Orders
07/28/24 18:09
Urinalysis Reflex To Culture Urgent
Date Specimen was Collected: 07/29/24
Time Specimen was Collected: 00:58
07/28/24 18:10
CT Abd/Pel (IV only)-[facility] only Urgent
Comment:
Reason For Exam: general abd pain, bloating, vomited once
07/28/24 18:15
Complete Blood Count/With Diff Urgent
Comprehensive Metabolic Panel Urgent
Lipase Urgent
07/28/24 23:04
0.9% Sodium Chloride 1000 ml [Nss] 1,000 ml IV BOLUS
07/28/24 23:20
Encourage PO Hydration-Treatme ONCE
Abnormal Lab Results
07/28/24 07/29/24
18:15 01:14
RBC 4.57 L 10^6/uL
(4.70-6.10)
RDW 15.2 H %
(11.5-14.5)
Abs Immat Gran (auto) 0.1 H 10^3/uL
(0-0.05)
Absolute Neuts (auto) 7.0 H 10^3/uL
(1.4-6.5)
Absolute Lymphs (auto) 0.8 L 10^3/uL
(1.2-3.4)
Immature Gran % 0.6 H %
(0-0.5)
Neutrophils % 82.7 H %
(42.2-75.2)
Lymphocytes % 9.3 L %
(20.5-51.1)
Carbon Dioxide 21 L mmol/L
(22-30)
BUN 47 H mg/dl
(9-20)
Glucose 129 H mg/dl
(70-99)
Urine Ketones Trace A
(Negative)
07/28/24 18:15
07/28/24 18:15
Vital Signs
Initial and Last Documented VS:
Initial Vital Signs
Temp Pulse Resp BP Pulse Ox
98.9 F 70 18 122/77 97
07/28/24 18:06 07/28/24 18:06 07/28/24 18:06 07/28/24 18:06 07/28/24 18:06
Last Documented Vital Signs
Temp Pulse Resp BP Pulse Ox
97.5 F 67 18 144/80 96
07/28/24 21:00 07/28/24 21:00 07/28/24 21:00 07/29/24 06:00 07/29/24 06:00
<CATE Hannah - Last Filed: 07/29/24 05:52>
*Critical Care Note
Total Time (30-74mins, 75-104mins- exclusive of procedures): Not Applicable
<Sara Muñoz DO - Last Filed: 07/29/24 06:24>
*Radiology
Radiology exam reviewed: radiology read reviewed
*Pulse Oximetry
Patient hypoxic: no
ED Attending Note
<CATE Hannah - Last Filed: 07/29/24 05:52>
-
Portions of this chart may have been created with voice recognition software.� Occasional wrong word or��sound alike� substitutions may have occurred due to the inherent limitations of voice recognition software.
<Sara Muñoz DO - Last Filed: 07/29/24 06:24>
ED Attending Note
Patient seen and examined by attending physician: Yes
I performed the substantive portion of visit, reviewed & personally made and approve the management plan that is documented in note by myself or CATALINA.: Yes
ED Attending Note:
This is a 78-year-old gentleman with history of Parkinson's disease, PAF chronically maintained on Coumadin, hypertension, hyperlipidemia, GERD, tkn-cnzvmnk-rgpflrokf diabetes who was hospitalized 1 month ago initially for change in mental status,
acute toxic metabolic encephalopathy. Parkinson's medications were adjusted. During his hospitalization he was found to have an incidental 6.2 cm abdominal aortic aneurysm and underwent infrarenal AAA endovascular aneurysm repair on June 29.
He resides at [facility].
Beginning yesterday morning sometime after breakfast he developed nausea and vomiting, reports 2-3 episodes of vomiting and then today approximately 2 episodes of loose stools. He has had some intermittent crampy abdominal pain and was evaluated by
MULTIPLE TUBE WINDING MACHINE OPERATOR day and again today. INR today therapeutic at 2.6. Plan was to encourage clear liquids. No specific medication changes nor additions were made yesterday nor today.
He sent to the ED this evening for further evaluation due to poor oral intake. He has had no further vomiting today, no further diarrhea since this morning. There is been no reported fever. No falls.
GENERAL: 78-year-old gentleman appears somewhat older than stated age, mildly ill in appearance. Somewhat sedate, opens his eyes to verbal stimuli and does answer a few simple questions appropriately. Moderately slow to verbalize.
EYE: pupils equal and reactive. anicteric
NECK: Supple, nontender, no meningismus, no significant adenopathy.
ENT: posterior pharynx is clear, oral mucosa is mildly dry. TM clear b/l, nares patent.
CARDIAC: Regular rate and rhythm. no murmur.
LUNGS: Clear breath sounds bilaterally, no acute respiratory distress, no wheezes/rales/rhonchi
ABDOMEN: Rotund, soft, nondistended, minimal tenderness generalized to the lower abdomen with deep palpation only, no r/g, no cvat. normoactive BS.
NEUROLOGICAL: Lethargic, slow to respond but able to answer a few simple questions. Moderate bradykinesia
SKIN: Warm and dry, normal color, skin intact. No rash.
MUSCULOSKELETAL: No C/C/E. peripheral pulses are full and equal b/l. No palpable tenderness.
PSYCH: Normal and appropriate interaction.
Patient presents with 1 and half day history of nausea, vomiting, diarrhea. Concern for gastroenteritis, small bowel obstruction, electrolyte abnormality, dehydration.
He has known Parkinson's disease, recent hospitalization 1 month ago for toxic metabolic encephalopathy/altered mental status. Medications adjusted.
According to records from PCP, patient noted to have slow decline in mentation and activity. Unclear if this is his current baseline versus recurrent toxic metabolic encephalopathy.
Labs showed dehydration with uptrend BUN to previous.
Unremarkable CBC with normal white blood cell count.
INR tested today at [facility], therapeutic at 2.6. No indication to repeat.
CT abdomen pelvis shows no obstruction, liquid stool within the distal sigmoid, proximal colon consistent with gastroenteritis.
Will initiate IV fluids and will attempt oral fluids. If unable to tolerate oral fluids or if vomiting recurs patient will require acute hospitalization for continued IV fluids for hydration repletion.
06:00
Patient has received 2 L of IV fluids, is now bright and alert, tolerating oral fluids. He has had no vomiting or diarrhea since arrival to the ED.
Abdomen is soft without appreciable tenderness.
Will discharge back to [facility] for continued care.
Discharge Plan
Departure
Patient Disposition: [facility]/SNF
Date of Disposition: 07/29/24
Time of Disposition: 06:21
Patient with high blood pressure during this ER visit?: No
Condition: Good
Discharge Problem:
Acute gastroenteritis, Acute dehydration
Instructions: Viral gastroenteritis in adults, Clear Liquid Diet
Prescriptions:
No Action
citalopram 20 MG tablet
20 mg PO QPM
cyanocobalamin (vitamin B-12) [Vitamin B-12] 500 MCG tablet
1,000 mcg PO DAILY
sennosides [senna] 8.6 mg Tablet
8.6 mg PO QPM Qty: 0
acetaminophen 325 mg Tablet
650 mg PO BIDPRN PRN (Reason: mild pain) Qty: 0
polyethylene glycol 3350 17 GRAMS powder in packet
17 g PO DAILY
pantoprazole 20 mg Tablet,Delayed Release (Dr/Ec)
20 mg PO DAILY Qty: 0
solifenacin 5 MG tablet
5 mg PO QPM
atorvastatin [Lipitor] 10 MG tablet
10 mg PO QPM
melatonin 3 MG capsule
9 mg PO HS
donepezil [Aricept] 10 mg Tablet
10 mg PO QPM
bisacodyl [Dulcolax (bisacodyl)] 10 mg Suppository
10 mg [place] DAILYPRN PRN (Reason: constipation)
acetaminophen 325 mg Tablet
650 mg PO BID
therapeutic multivitamin Tablet
1 tab PO DAILY
cranberry 500 mg Capsule
500 mg PO DAILY
Artificial Tears([id number]) 0.1-0.3 % Drops
1 drp BOTH EYES BID
entacapone 200 mg Tablet
200 mg PO 0800,1400,1800,2100 30 Days Qty: 0 0RF
carbidopa-levodopa 25-100 mg Tablet
1.5 tab PO QID@0800,1400,1800,2100 30 Days Qty: 0 0RF
Refresh Classic (PF) 1.4-0.6 % Dropperette
1 drp ophthalmic (eye) QIDPRN PRN (Reason: Dry eye/erythema) Qty: 30 0RF
Neupro 4 mg/24 hour Patch 24 Hour
4 mg transdermal DAILY Qty: 0 0RF
warfarin [Jantoven] 5 mg Tablet
5 mg PO DAILY@1800 Qty: 0 0RF
carvedilol 3.125 MG tablet
3.125 mg PO BID Qty: 0 0RF
clonazepam 0.25 mg tablet,disintegrating
0.25 mg PO TID @ 0800,1200,1700 Qty: 6 0RF
Referrals:
Prashanth Rodríguez MD [Family Provider] - Next open appointment
Interventions
Interventions:
*Risk Screen - Suicide Last Done: 07/29/24 00:22
*General Assessment Last Done: 07/29/24 00:22
*Neglect/Abuse Screening Last Done: 07/29/24 00:22
ED- Fall Risk Assessment Last Done: 07/29/24 04:15
*ED COVID-19 Vaccine History Last Done: 07/29/24 00:22
JV-Cizuaf-Ypjxvxhljd Assessment Last Done: 07/29/24 00:17
Discharge Date and Time
Print Language: POLISH
[2024-07-29] VITALS (12 sets, daily range): BP systolic 116–147; BP diastolic 69–98
[2024-07-29] MEDS: NSS 1000 IV (00:24)
[2024-07-29 01:29] LABS: Urine Albumin Trace (Neg - Trace); Urine Bilirubin Negative (Negative); Urine Character Clear (Clear); Urine Color Yellow; Urine Glucose Negative (Negative); Urine Ketone Trace (Negative); Urine Leukocyte Negative (Negative); Urine Nitrite Negative (Negative); Urine Occult Blood Negative (Negative); Urine Urobilinogen Negative (Neg - 1+)
--- NOTE | 2024-07-29 09:50 | CM ---
Amy from [facility] requesting d/c instructions be faxed to [phone]. Fax complete.
== END 2024-07-29 10:15 ==
LOC: EMR 17:37
PROVIDERS: Registered Nurse; EMERGENCY PHYSICIAN Emergency Medicine; FAMILY PHYSICIAN Internal Medicine
DX: K52.9 Noninfective gastroenteritis and colitis, unspecified (principal); E86.0 Dehydration; I48.91 Unspecified atrial fibrillation; K21.9 Gastro-esophageal reflux disease without esophagitis; I10 Essential (primary) hypertension; E11.9 Type 2 diabetes mellitus without complications; F02.83 Dementia in other diseases classified elsewhere, unspecified severity, with mood disturbance; F02.84 Dementia in other diseases classified elsewhere, unspecified severity, with anxiety; G20.A1 Parkinson's disease without dyskinesia, without mention of fluctuations
CPT/HCPCS: 99284; 96360; 74177; 80053; 81003; 83690; 85025; Q9967

== ENCOUNTER → 2024-08-10 10:39 | Outpatient (REF) | payer OTHER, SELFPAY | LOC: RAD 10:39 | PROVIDERS: ATTENDING PHYSICIAN Registered Nurse; FAMILY PHYSICIAN Internal Medicine | DX: I71.43 Infrarenal abdominal aortic aneurysm, without rupture (principal) | CPT/HCPCS: 74174; Q9967 ==

== ENCOUNTER → 2025-03-20 08:59 | Outpatient (REF) | payer OTHER, SELFPAY | LOC: DHVS 08:59 | PROVIDERS: ATTENDING PHYSICIAN Surgery Vascular Surgery | DX: I71.43 Infrarenal abdominal aortic aneurysm, without rupture (principal) | CPT/HCPCS: 76770 ==

== ENCOUNTER 2025-05-28 13:22 | Emergency (ER) | payer OTHER, SELFPAY ==
[2025-05-28] VITALS (8 sets, daily range): BP systolic 133–169; BP diastolic 73–84; BMI 31.4
[2025-05-28 14:25] LABS: Hematocrit 30.0 % (39.0-52.0); Hemoglobin 9.4 g/dL (13.0-18.0); Mean Corp Hgb Conc. 31.3 g/dL (33.0-37.0); Mean Corpuscular Volume 84.7 fL (80.0-94.0); Nucleated Red Blood Cells % 0 % (-); Platelet Count 229 10^3/uL (130-400); Red Cell Dist. Width 15.2 % (11.5-14.5)
--- NOTE | 2025-05-28 14:33 | ED.CVA ---
History of Present Illness
<Jake Joseph DO - Last Filed: 05/28/25 14:35>
General
Chief Complaint: CVA/TIA Symptoms
Time Seen by Provider: 05/28/25 14:23
<Ana Whalen PA-C - Last Filed: 05/28/25 17:14>
General
Source: patient and ambulance crew
Exam Limitations: clinical condition
Nursing documentation reviewed up to this point in time: agreed with
Onset of Stroke Symptoms
Onset of symptoms known: Yes
Date of onset of symptoms: 05/28/25
History of Present Illness
History of Present Illness:
see MDM
Past History
<Jake Joseph DO - Last Filed: 05/28/25 14:35>
Past History
ED Past Medical History: Arrthythmia (Atrial fibrillation), CVA, GERD, HTN, NIDDM (Diet-controlled), Psychiatric (Anxiety depression), Other (Parkinson dementia) and Other (Parkinson's disease, dementia, ambulatory dysfunction, degenerative joint
disease, cervical stenosis)
ED Past Surgical History: Cardiac (Pacemaker) and Other (hernia repair)
Social History
Tobacco: Non-smoker
Alcohol: None
Drug: None
Personal:
Living: assisted living ([facility])
Employment: Retired
Family History
Family History: Other (Reviewed and Noncontributory)
Phy Exam
<Ana Whalen PA-C - Last Filed: 05/28/25 17:14>
Physical Exam
Physical Exam:
see MDM
Course
<Jake Joseph DO - Last Filed: 05/28/25 14:35>
Orders/Labs/Results
Orders:
Orders
05/28/25 13:33
Electrocardiogram (*1) Urgent
Reason for Study: Fatigue / Weakness
CT Head W/o Iv Contrast Urgent
Comment:
Reason For Exam: slurred speech
05/28/25 13:34
EKG- Treatment ONCE
05/28/25 13:55
Complete Blood Count/With Diff Urgent
Comprehensive Metabolic Panel Urgent
Magnesium Urgent
PT/INR [Prothrombin Time] Urgent
PTT Urgent
Troponin I Urgent
Urinalysis Reflex To Culture Urgent
Date Specimen was Collected: 05/28/25
Time Specimen was Collected: 13:35
Urine Microscopic Reflex Cult Urgent
Urine Culture Urgent
YAS Source: U
Specimen Description:
Date Specimen was Collected: 05/28/25
Time Specimen was Collected: 13:35
05/28/25 14:33
Straight cath- Treatment ONCE
05/28/25 14:48
CT Head & Neck Angio W/wo IV Urgent
Comment:
Reason For Exam: ams, strroke
05/28/25 14:49
Consult Neurology [NEUROLOGY CONSULT] Urgent
Consulting Provider: Gorge Emmanuel
Was physician already notified: Yes
05/28/25 16:30
PT Consult [Pt Eval And Treat] Urgent
Activity Level: Ambulate
05/28/25 16:31
Fosfomycin [Monurol] 3 gm PO ONCE ONE
05/28/25 17:11
Add On- LAB Urgent
Tests Added?: iron level, tibc, ferritin
Abnormal Lab Results
05/28/25
13:55
RBC 3.54 L 10^6/uL
(4.70-6.10)
Hgb 9.4 L g/dL
(13.0-18.0)
Hct 30.0 L %
(39.0-52.0)
MCH 26.6 L pg
(27.0-31.0)
MCHC 31.3 L g/dL
(33.0-37.0)
RDW 15.2 H %
(11.5-14.5)
Absolute Lymphs (auto) 1.0 L 10^3/uL
(1.2-3.4)
Absolute Monos (auto) 0.7 H 10^3/uL
(0.1-0.6)
Lymphocytes % 18.5 L %
(20.5-51.1)
Monocytes % 11.8 H %
(1.7-9.3)
PT 22.1 H Sec
(11.4-14.6)
Chloride 108 H mmol/L
(98-107)
BUN 22 H mg/dl
(9-20)
Urine Ketones 1+ A
(Negative)
Ur Occult Blood Reflex 1+ A
(Negative)
Leukocyte Esterase Rfl 1+ A
(Negative)
Urine RBC 3-6 A /HPF
(0-2)
Urine Bacteria (Reflex) Few A
(Negative)
Urine Albumin (Reflex) 2+ A
(Neg - Trace)
05/28/25 13:55
05/28/25 13:55
Vital Signs
Initial and Last Documented VS:
Initial Vital Signs
Temp Pulse Resp BP Pulse Ox
36.4 C 82 25 133/73 98
05/28/25 13:23 05/28/25 13:23 05/28/25 13:23 05/28/25 13:23 05/28/25 13:23
Last Documented Vital Signs
Temp Pulse Resp BP Pulse Ox
36.4 C 81 27 133/73 97
05/28/25 13:23 05/28/25 13:32 05/28/25 13:32 05/28/25 13:31 05/28/25 14:33
<Ana Whalen PA-C - Last Filed: 05/28/25 17:14>
Orders/Labs/Results
Orders:
Orders
05/28/25 13:33
Electrocardiogram (*1) Urgent
Reason for Study: Fatigue / Weakness
CT Head W/o Iv Contrast Urgent
Comment:
Reason For Exam: slurred speech
05/28/25 13:34
EKG- Treatment ONCE
05/28/25 13:55
Complete Blood Count/With Diff Urgent
Comprehensive Metabolic Panel Urgent
Magnesium Urgent
PT/INR [Prothrombin Time] Urgent
PTT Urgent
Troponin I Urgent
Urinalysis Reflex To Culture Urgent
Date Specimen was Collected: 05/28/25
Time Specimen was Collected: 13:35
Urine Microscopic Reflex Cult Urgent
Urine Culture Urgent
YAS Source: U
Specimen Description:
Date Specimen was Collected: 05/28/25
Time Specimen was Collected: 13:35
05/28/25 14:33
Straight cath- Treatment ONCE
05/28/25 14:48
CT Head & Neck Angio W/wo IV Urgent
Comment:
Reason For Exam: ams, strroke
05/28/25 14:49
Consult Neurology [NEUROLOGY CONSULT] Urgent
Consulting Provider: Gorge Emmanuel
Was physician already notified: Yes
05/28/25 16:30
PT Consult [Pt Eval And Treat] Urgent
Activity Level: Ambulate
05/28/25 16:31
Fosfomycin [Monurol] 3 gm PO ONCE ONE
05/28/25 17:11
Add On- LAB Urgent
Tests Added?: iron level, tibc, ferritin
Abnormal Lab Results
05/28/25
13:55
RBC 3.54 L 10^6/uL
(4.70-6.10)
Hgb 9.4 L g/dL
(13.0-18.0)
Hct 30.0 L %
(39.0-52.0)
MCH 26.6 L pg
(27.0-31.0)
MCHC 31.3 L g/dL
(33.0-37.0)
RDW 15.2 H %
(11.5-14.5)
Absolute Lymphs (auto) 1.0 L 10^3/uL
(1.2-3.4)
Absolute Monos (auto) 0.7 H 10^3/uL
(0.1-0.6)
Lymphocytes % 18.5 L %
(20.5-51.1)
Monocytes % 11.8 H %
(1.7-9.3)
PT 22.1 H Sec
(11.4-14.6)
Chloride 108 H mmol/L
(98-107)
BUN 22 H mg/dl
(9-20)
Urine Ketones 1+ A
(Negative)
Ur Occult Blood Reflex 1+ A
(Negative)
Leukocyte Esterase Rfl 1+ A
(Negative)
Urine RBC 3-6 A /HPF
(0-2)
Urine Bacteria (Reflex) Few A
(Negative)
Urine Albumin (Reflex) 2+ A
(Neg - Trace)
05/28/25 13:55
05/28/25 13:55
Vital Signs
Initial and Last Documented VS:
Initial Vital Signs
Temp Pulse Resp BP Pulse Ox
36.4 C 82 25 133/73 98
05/28/25 13:23 05/28/25 13:23 05/28/25 13:23 05/28/25 13:23 05/28/25 13:23
Last Documented Vital Signs
Temp Pulse Resp BP Pulse Ox
36.4 C 81 27 133/73 97
05/28/25 13:23 05/28/25 13:32 05/28/25 13:32 05/28/25 13:31 05/28/25 14:33
<Ana Whalen PA-C - Last Filed: 05/28/25 17:14>
MDM/Problems Addressed
Differential Diagnosis Includes:
see MDM
MDM/Problems Addressed:
Note:
CHIEF COMPLAINT(S)
Speech difficulty.
HISTORY OF PRESENT ILLNESS
The patient is a 79-year-old male h/o AF on coumadin, AAA, pacer, previous CVA/TIAs int he past
also with ho UTI
was eating lunch and became weak, trouble talking apparently. he said he was unable to finish his lunch
ems was [facility].
pt has no headache, focal weakness
he has felt this way with previous UTIs he says.
He denies headache, and fever. The patient has a pacemaker and is on blood-thinning medication, coumadin.
He remains oriented and able to respond to questions during the examination. No loss of consciousness or significant weakness was reported, although he did mention difficulty eating his last meal and some trouble talking initially, which he now
feels is improving.
per RN from [facility]:
pt suddenly was glazed over and staring without answering questions;
PAST MEDICAL AND SURIGICAL HISTORY
The patient has a pacemaker.
SOCIAL DETERMINANTS AFFECTING HEALTH
The patient lives in an independent living facility where he receives assistance with medication management.
MEDICATIONS
The patient is on blood-thinning medication.
PHYSICAL EXAM
parkinsons faces
GENERAL: Alert , in no apparent distress
HEAD: NCAT
EYE: pupils equal and reactive, no nystagmus, no photophobia
NECK: Supple,full rom, nontender
ENT: o/p clr, mmm.
CARDIAC: Regular rate and rhythm . no edema
LUNGS: Clear breath sounds bilaterally, no acute respiratory distress, no wheezes/rales/rhonchi
ABDOMEN: Soft, without focal tenderness, no r/g, no cvat
NEUROLOGICAL: Alert and orientedx 2 (disoriented to time); mild dysarthria, cn intact, no facial asymmetry, 5/5 strength in UE/LE, sensation intact, romberg neg, ambulates without assistance, neg pronator drift
NIH 2
SKIN: Warm and dry, skin intact.
MUSCULOSKELETAL: No edema, well perfused.
PSYCH: Normal and appropriate interaction.; flat affect
- Nursing notes reviewed and vital signs reviewed.
PROBLEM LIST
- Acute: Speech difficulty
- Chronic: Pacemaker, Anticoagulation therapy
DIFFERENTIAL DIAGNOSIS
The Differential Diagnosis includes, in no particular order and is not limited to:
- Transient Ischemic Attack
- Urinary Tract Infection with neurological symptoms
- Stroke
- Medication side effect
- Aphasia due to other neurological causes
- Seizure with postictal state
- Electrolyte imbalance
- Encephalopathy
- Degenerative neurological disorder
- Metabolic disorder
79-year-old male with a history of Parkinson's, CVA, A-fib on Coumadin, pacemaker presents from [facility] with acute change in mental status sometime around 1130 when he was eating his lunch. He suddenly became aphasic and was staring. He was
awake but not responsive. He has not really done this before according to the nurse that I talked to from [facility]. Here the patient was much more communicative, can answer questions although somewhat slowly could be his parkinsonism, he had mild
dysarthria and he got the date wrong but otherwise his neuroexam was nonfocal. Patient CT noncontrasted study was negative. I discussed the case with ED attending who saw the patient and we did discuss with neurology who saw the patient at bedside
as well. Patient is not a TNK candidate due to his INR. Plan for CTA and admission
<Jake Joseph, DO - Last Filed: 05/28/25 14:35>
*Pulse Oximetry
SaO2: 97
Oxygen Mode of Delivery: Room air
<Ana Whalen PA-C - Last Filed: 05/28/25 17:14>
*Pulse Oximetry
Patient hypoxic: no (97)
*Critical Care Note
Total Time (30-74mins, 75-104mins- exclusive of procedures): Not Applicable
<Ana Whalen PA-C - Last Filed: 05/28/25 17:14>
Update Note
Update Note:
Patient was evaluated by the neurologist who felt that the symptoms were very classic for his parkinsonism and given the fact that he is already anticoagulated had a negative CT and CTA he felt that he should be able to go home with an increase of
his Neupro patch
Patient was seen by PT to make sure he was able to ambulate which he was with a walker. This is his baseline. I will cover him with a dose of Monurol with a borderline urinalysis and a history of reported UTIs causing some altered mental status
for him in the past.
ED Attending Note
<Jake Joseph, - Last Filed: 05/28/25 14:35>
ED Attending Note
Patient seen and examined by attending physician: Yes
I performed the substantive portion of visit, reviewed & personally made and approve the management plan that is documented in note by myself or CATALINA.: Yes
ED Attending Note:
I have seen and evaluated the patient with a [id number] encounter. I have spoken to the advance practicer provider and involved in the medical history, the physical exam, medical decision making.
Evaluation and management service: agree unless noted differently below.
Results interpretation: agree unless noted differently below.
Focused HPI: 79-year-old male presenting with what appears to be a sudden onset of mental status change. Patient presents from [facility]. He apparently became confused around 1130 this morning.
Physical exam: Mild dysarthria. Heart regular rate and rhythm.
Medical Decision Making: Patient states he is on Coumadin. Will obtain INR to assess whether or not patient is a TNK candidate. Will have neurology evaluate
-
Portions of this chart may have been created with voice recognition software.� Occasional wrong word or��sound alike� substitutions may have occurred due to the inherent limitations of voice recognition software.
Discharge Plan
Departure
Patient Disposition: Home (Routine Discharge)
Date of Disposition: 05/28/25
Time of Disposition: 16:59
Admit to: Telemetry
Patient with high blood pressure during this ER visit?: No
Condition: Fair
Covid-19: Not Applicable
Discharge Problem:
AMS (altered mental status), Parkinson's disease
Instructions: Parkinson disease
Prescriptions:
New
Neupro 1 mg/24 hour patch 24 hour
1 mg transdermal DAILY Qty: 30 0RF
No Action
citalopram 20 MG tablet
20 mg PO QPM
cyanocobalamin (vitamin B-12) [Vitamin B-12] 500 MCG tablet
1,000 mcg PO DAILY
acetaminophen 325 mg Tablet
650 mg PO BIDPRN PRN (Reason: mild pain) Qty: 0
polyethylene glycol 3350 17 GRAMS powder in packet
17 g PO DAILYPRN PRN (Reason: constipation)
pantoprazole 20 mg Tablet,Delayed Release (Dr/Ec)
20 mg PO DAILY Qty: 0
atorvastatin [Lipitor] 10 MG tablet
10 mg PO QPM
melatonin 3 MG capsule
9 mg PO HS
donepezil [Aricept] 10 mg Tablet
10 mg PO QPM
bisacodyl [Dulcolax (bisacodyl)] 10 mg Suppository
10 mg ME DAILYPRN PRN (Reason: if no bm aftr miralax)
acetaminophen 325 mg Tablet
650 mg PO BID
therapeutic multivitamin Tablet
1 tab PO DAILY
cranberry 500 mg Capsule
500 mg PO DAILY
dextran 70-hypromellose 0.1-0.3 % Drops
1 drp BOTH EYES BID
Neupro 4 mg/24 hour Patch 24 Hour
4 mg transdermal DAILY Qty: 0 0RF
carvedilol 3.125 MG tablet
3.125 mg PO BID Qty: 0 0RF
docusate sodium [Colace] 100 mg Capsule
100 mg PO BID
carbidopa-levodopa [Sinemet] 25-100 mg Tablet
1 tab PO TID@,,18
Refresh Classic (PF) 1.4-0.6 % Dropperette
1 drp BOTH EYES QIDPRN PRN (Reason: dry eyes)
lqjvrjjot-xplwkikq-mqaruxsorp [Stalevo 150] 37.5-150-200 mg Tablet
1 tab PO QID@,,18,
solifenacin [Vesicare] 5 mg Tablet
5 mg PO QPM
Balmex Adult Care 11.3 % Cream
1 applic TOPICAL BID
warfarin [Jantoven] 5 mg tablet
5 mg PO QPM
clonazepam 0.25 mg tablet,disintegrating
0.25 mg PO TID
Referrals:
Prashanth Rodríguez MD [Family Provider]
Activity Restrictions/Additional Instructions:
Parveen was evaluated today for stroke but was not found to have any changes on his CAT scan of his head or CAT scan of his head and neck with contrast. The neurologist saw him and felt as if his symptoms were related to his Parkinson's disease.
He recommended increasing his Neupro patch from 4 mg to 5 mg
So that would be a 4 mg patch plus a 1 mg patch daily
Patient also had mildly positive urinalysis so I gave him a dose of oral antibiotics just to cover him just in case. He was evaluated by physical therapy and found to be able to get up and use his walker without difficulty. The patient can be
discharged back to his facility. Return for any concerns
He was mildly anemic today but had no blood in his stool. I added on iron studies but you should have him seen by a physician or medical coding technician for an anemia workup
Interventions
Interventions:
*Risk Screen - Suicide Last Done: 05/28/25 13:23
*General Assessment Last Done: 05/28/25 13:23
*Neglect/Abuse Screening Last Done: 05/28/25 13:23
*ED- Fall Risk Assessment Last Done: 05/28/25 13:23
*ED COVID-19 Vaccine History Last Done: 05/28/25 13:23
*ED Influenza Vaccine History Last Done: 05/28/25 13:23
ED- Pulmonary Assessment Last Done: 05/28/25 13:23
ED- Neurological Assessment Last Done: 05/28/25 13:23
ED- Cardiac Assessment Last Done: 05/28/25 13:23
ED Swallowing Screen Last Done: 05/28/25 13:23
Discharge Date and Time
Print Language: CONGOLESE
[2025-05-28 14:37] LABS: ALT (SGPT) 17 U/L (0-50); AST (SGOT) 48 U/L (17-59); Albumin 4.0 g/dl (3.5-5.0); Alkaline Phosphatase 79 U/L (38-126); Blood Urea Nitrogen 22 mg/dl (9-20); Calcium 9.6 mg/dl (8.4-10.2); Carbon Dioxide 29 mmol/L (22-30); Chloride 108 mmol/L (98-107); Estimated Creatinine Clearance 59 ml/min; Glucose 81 mg/dl (70-99); Magnesium 2.2 mg/dl (1.6-2.3); Potassium 4.4 mmol/L (3.5-5.1); Sodium 139 mmol/L (135-145); Total Protein 6.9 g/dl (6.3-8.2); eGFR > 60.00
[2025-05-28 14:38] LABS: INR 1.92; PT 22.1 Sec (11.4-14.6)
[2025-05-28 14:39] LABS: APTT 32.7 Sec (23.4-35.0)
[2025-05-28 14:48] LABS: Troponin I < 0.012 ng/ml
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
[2025-05-28 14:52] LABS: Urine Character Clear (Clear)
[2025-05-28 15:03] LABS: Urine Urothelial Cell 0-2 /LPF (FEW)
--- NOTE | 2025-05-28 15:11 | EDRN ---
hospitalist and Dr. Emmanuel currently at the pts bedside
--- NOTE | 2025-05-28 16:42 | EDRN ---
physical therapy currently at the pts bedside
[2025-05-28] MEDS: MONUROL 3 GM PO (17:24)
[2025-05-28 17:56] LABS: Iron 29 ug/dl (49-181)
--- NOTE | 2025-05-28 18:01 | EDRN ---
this RN called [facility] at [phone] to give verbal report and to notify staff that the pt was being sent back, this RN gave verbal report to the receiving nurse
[2025-05-28 18:05] LABS: Total Iron Binding Capacity 409 ug/dl (261-462)
[2025-05-28 18:32] LABS: Ferritin 14.1 ng/ml (17.9-464.0)
== END 2025-05-28 18:19 | disposition home or self-care (01) ==
LOC: EMR 13:22
PROVIDERS: CONSULT PHYSICIAN Psychiatry & Neurology Neurology; EMERGENCY PHYSICIAN Student in an Organized Health Care Education/Training Program; FAMILY PHYSICIAN Internal Medicine
DX: G20.A1 Parkinson's disease without dyskinesia, without mention of fluctuations (principal); F02.80 Dementia in other diseases classified elsewhere, unspecified severity, without behavioral disturbance, psychotic disturbance, mood disturbance, and anxiety; E11.43 Type 2 diabetes mellitus with diabetic autonomic (poly)neuropathy; I25.10 Atherosclerotic heart disease of native coronary artery without angina pectoris; I48.91 Unspecified atrial fibrillation; I10 Essential (primary) hypertension; E78.5 Hyperlipidemia, unspecified; I49.5 Sick sinus syndrome; Z95.0 Presence of cardiac pacemaker; I71.43 Infrarenal abdominal aortic aneurysm, without rupture; K21.9 Gastro-esophageal reflux disease without esophagitis; R26.9 Unspecified abnormalities of gait and mobility; R32 Unspecified urinary incontinence; F41.9 Anxiety disorder, unspecified; F32.A Depression, unspecified; M19.90 Unspecified osteoarthritis, unspecified site; M48.02 Spinal stenosis, cervical region; Z79.01 Long term (current) use of anticoagulants; Z86.73 Personal history of transient ischemic attack (TIA), and cerebral infarction without residual deficits; Z95.5 Presence of coronary angioplasty implant and graft; Z82.0 Family history of epilepsy and other diseases of the nervous system
CPT/HCPCS: 99284; 70450; 70496; 70498; 80053; 81003; 81015; 82728; 83540; 83550; 83735; 84484; 85025; 85610; 85730; 87086; 93005; Q9967